=== PATIENT | male | born 1940 | race Hispanic/Latino ===

== ENCOUNTER 2023-09-07 20:54 | Emergency (ER) | payer MEDICARE ==
[~2023-09-07] VITALS: Ht 167.6 cm; Wt 78.9 kg
[2023-09-07 21:49] LABS: BASOPHILS # (AUTO) 0.05 K/uL (0.00-0.20); BASOPHILS % (AUTO) 0.5 % (0.0-5.0); EOSINOPHILS % (AUTO) 6.3 % (0.0-8.0); HEMATOCRIT 37.1 % (42-54); IMMATURE GRANULOCYTE ABSOLUTE 0.03 K/uL (0-1); LYMPHOCYTES # (AUTO) 1.6 K/uL (1.0-4.8); LYMPHOCYTES % (AUTO) 16.5 % (21.0-51.0); MEAN CORPUSCULAR HEMOGLOBIN 30.3 pg (27.0-33.0); MEAN CORPUSCULAR HGB CONC 33.2 g/dL (32.0-36.0); MEAN CORPUSCULAR VOLUME 91.4 fL (79-99); MONOCYTES # (AUTO) 1.5 K/uL (0.1-1.0); MONOCYTES % (AUTO) 15.3 % (3.0-13.0); NEUTROPHILS # (AUTO) 5.8 K/uL (1.8-7.7); NEUTROPHILS % (AUTO) 61.1 % (40.0-77.0); PLATELET COUNT (AUTO) 213 K/uL (130-400); RED BLOOD CELL COUNT(AUTO) 4.06 MIL/uL (4.50-6.20); RED CELL DISTRIBUTION WIDTH 13.3 % (11.0-15.5); WHITE BLOOD COUNT (AUTO) 9.5 K/uL (4.8-10.8)
[2023-09-07 21:58] LABS: CREATININE 1.3 mg/dL (0.5-1.5)
[2023-09-07 22:03] LABS: ALBUMIN 3.2 g/dL (3.5-5.0); BILIRUBIN,TOTAL 0.4 mg/dL (0.2-1.0); TOTAL PROTEIN, SERUM 6.8 g/dL (6.0-8.3)
[2023-09-07 22:40] VITALS: BP 118/62; PULSE 62; RESP 18; O2SAT 99
== END 2023-09-07 22:40 | disposition home or self-care (01) ==
LOC: EDH 20:54
DX: S00.03XA Contusion of scalp, initial encounter (principal); Z79.02 Long term (current) use of antithrombotics/antiplatelets; Z88.0 Allergy status to penicillin; W18.39XA Other fall on same level, initial encounter; Y93.89 Activity, other specified; Y92.89 Other specified places as the place of occurrence of the external cause; Y99.8 Other external cause status
CPT/HCPCS: 36415; 70450; 72125; 80053; 85025; 85730; 93005

== ENCOUNTER 2024-11-24 03:23 | Inpatient (IN) | payer MEDICARE ==
[~2024-11-24] VITALS: Ht 167.6 cm; Wt 76.8 kg
[2024-11-24] VITALS (17 sets, daily range): BP systolic 93–145; BP diastolic 48–79; PULSE 62–124; RESP 18–22; TEMP 97.4–99; O2SAT 90–97
[~2024-11-24 03:23] MED LIST: ASPI-1005 PO; ATOR40TA69 PO; BUPR100T13 PO; CARV6.25 PO; CLON0.5T23 PO; DOXY100C5 PO; FAMO40TA7 PO; LISI5TAB21 PO; MULT-1268 PO; MV-M1TAB20 PO; OLAN2.5T77 PO; OMEP20TA2 PO
--- NOTE | 2024-11-24 04:00 | ERN ---
ED Note History of Present Illness Stated Complaint: MECHANICAL FALL, PAIN TO NOSE Chief Complaint: Mechanical Fall Time Seen by MD: 03:30 Dictation: This is an 84-year-old male who was discharged from hospital yesterday after he was treated for shortness of breath and congestive heart failure and hypoxia. Apparently patient was able to walk around after discharge to the vehicle however he says he felt weak. stated that he got up around midnight to go to the bathroom however he could not gather strength to get out of bed and move his legs he just slumped down and patient called the neighbor who helped her to pick him up. Got up around 3:00 a.m. was holding the wall and trying to go to the bathroom and the heard a big thud and realized patient had fallen in the bathroom. Patient tripped on his own feet and fell forward hitting his face on the bathtub and right shoulder as well. Did not lose consciousness he is not on any blood thinners No headache, facial droop, diplopia or seizure activity Temperature 100.8 pulse 106 respirations 18 blood pressure 120/72 with a pulse oximetry of 94% on room air Chronic medical problems include CAD status post CABG in 2004 and subsequently stent placements, history of congestive heart failure. Previous history of heavy smoking quit 20 years ago Allergies: Coded Allergies: Penicillins (Unverified Allergy, Unknown, 09/07/23) Home Meds Active Scripts Doxycycline Hyclate (Doxycycline Hyclate) 100 Mg Capsule, 100 MG PO BID for 7 Days, #14 CAP Prov:DONNA HOYOS MD 11/23/24 Reported Medications Famotidine (Famotidine) 40 Mg Tablet, 1 TAB PO HS for 30 Days, #30 TAB 0 Refills 11/22/24 Olanzapine (Olanzapine) 2.5 Mg Tablet, 1.5 TAB PO HS, TAB 11/22/24 Atorvastatin Calcium (LIPITOR) 80 Mg Tablet, 1 TAB PO HS for 30 Days, #30 TAB 0 Refills 11/22/24 Carvedilol (Carvedilol) 6.25 Mg Tablet, 6.25 MG PO BID, TAB 11/22/24 Lisinopril (Lisinopril) 5 Mg Tablet, 5 MG PO DAILY, TAB 11/22/24 Omeprazole Magnesium (Prilosec Otc) 20 Mg Tablet.dr, 1 TAB PO DAILY for 30 Days, #30 TAB 0 Refills 11/22/24 Bupropion HCl (Bupropion HCl) 100 Mg Tablet, 150 MG PO DAILY, TAB 11/22/24 Clonazepam (Clonazepam) 0.5 Mg Tab.rapdis, 0.5 TAB PO QODAY for 30 Days, #60 TAB 0 Refills 11/22/24 Aspirin (ASPIRIN 81MG CHEW TAB) 81 Mg Tab.chew, 1 TAB PO DAILY for 30 Days, #30 TAB 0 Refills 11/22/24 Mv-Mn/Iron/FA/Herbal Cmplx#190 (Vitamin D3 Complete Caplet) 18 Mg Iron-800 Mcg- 150 Mg Tablet, 1 EACH PO DAILY, TAB 11/22/24 Multivit-Min/FA/Lycopene/Lut (Senior Tabs) 0.4 Mg-300 Mcg-250 Mcg Tablet, 1 EACH PO DAILY, TAB 11/22/24 Past Medical History Past Medical History: CAD, Other Additional Past Medical Hx: TRIPLE BYPASS (2004) Surgical History: CABG, Other Surgical History Other: CARDIAC STENTS Social History: Smokers (Quit smoking 20 years ago), ETOH (Heavy in the past but quit 20 years ago) RN Note Reviewed/Agreed w/PFSH: Yes Review of System Dictation Constitutional: Negative for fever,chills, and weight loss Eyes: Negative for injury, pain,redness, and discharge ENT: Negative for injury,pain or swelling Cardiovascular: Negative for chest pain, palpitations, and edema Respiratory: Negative for shortness of breath, cough, and wheezing, Abdomen/GI: Negative for abdominal pain, nausea, vomiting, diarrhea, and constip ation Back: Negative for injury and pain : Negative for injury, bleeding and discharge MS/Extremity: Negative for injury and deformity Skin: Negative for rash, and discoloration Neuro: Negative for headache, weakness, numbness, tingling, and seizure Psych: Negative for suicide ideation, homicidal ideation, and hallucinations Initial Vital Sign VS Vital Signs Date Time Temp Pulse Resp B/P (MAP) Pulse Ox O2 Delivery O2 Flow Rate FiO2 11/24/24 03:29 100.8 106 18 120/72 94 Nasal Cannula 2.0 11/24/24 03:57 40 Physical Exam Dictation General: awake, alert, NAD small amount of dried blood around nostrils and lips Head/Face: Normocephalic, atraumatic Eyes: PERRL, EOMI, vision at baseline ENT: oral cavity clear, TMs clear, no signs of infection nose appears bruised with tenderness to palpation but no obvious depression of the bridge of the nose visible deformity. Neck: Trachea midline, supple, no nuchal rigidity Cardiovascular: RRR, normal S1/S2, No MRGs, no JVD Respiratory: CTAB, no respiratory distress, No rales or wheezes Abdomen: Soft, non-tender, non-distended, normal bowel sounds, no guarding or rebound. Skin: Warm, dry, normal turgor, no rash MS/Extremity: Pulses equal, no cyanosis, neurovascular intact, FROM Neuro: COAx4, GCS 15, strength 4/5, CN 2-12 intact, normal cerebellar exam, normal gait, Psych: Normal behavior, mood, and affect normal Extremities-trace edema without any palpable cords, Homans sign is negative Results (Laboratory/Radiology) Laboratory/Radiology Laboratory Tests Test 11/24/24 03:52 White Blood Count 12.5 K/uL (4.8-10.8) H Red Blood Count 4.10 MIL/uL (4.50-6.20) L Hemoglobin 12.2 g/dL (14.0-18.0) L Hematocrit 37.2 % (42-54) L Mean Corpuscular Volume 90.7 fL (79-99) Mean Corpuscular Hemoglobin 29.8 pg (27.0-33.0) Mean Corpuscular Hemoglobin Concent 32.8 g/dL (32.0-36.0) Red Cell Distribution Width 13.7 % (11.0-15.5) Platelet Count 255 K/uL (130-400) Mean Platelet Volume 9.8 fL (7.5-10.5) Immature Granulocyte % (Auto) 0.5 % (0-1) Neutrophils (%) (Auto) 81.1 % (40.0-77.0) H Lymphocytes (%) (Auto) 5.0 % (21.0-51.0) L Monocytes (%) (Auto) 13.3 % (3.0-13.0) H Eosinophils (%) (Auto) 0.0 % (0.0-8.0) Basophils (%) (Auto) 0.1 % (0.0-5.0) Neutrophils # (Auto) 10.2 K/uL (1.8-7.7) H Lymphocytes # (Auto) 0.6 K/uL (1.0-4.8) L Monocytes # (Auto) 1.7 K/uL (0.1-1.0) H Eosinophils # (Auto) 0.00 K/uL (0.00-0.70) Basophils # (Auto) 0.01 K/uL (0.00-0.20) Absolute Immature Granulocyte (auto 0.06 K/uL (0-1) Nucleated Red Blood Cells 0.0 % (0.0-0.19) Sodium Level 132 mmol/L (136-145) L Potassium Level 4.2 mmol/L (3.5-5.1) Chloride Level 98 mmol/L (101-111) L Carbon Dioxide Level 27 mmol/L (21-32) Blood Urea Nitrogen 43 mg/dL (7-18) H Creatinine 1.8 mg/dL (0.5-1.3) H Glomerular Filtration Rate Calc 36 mL/min (>90) Random Glucose 94 mg/dL (70-105) Total Calcium 8.5 mg/dL (8.5-10.1) Labs Reviewed?: Yes EKG Comment: Twelve lead EKG done on 11/24/2024 at 4:58 a.m. showed a heart rate of 97, [place] interval 155, QRS 114, QT/QTC 339/432 Impression normal sinus rhythm with sinus tachycardia nonspecific STT wave changes throughout ST segment is prominent in the anterior leads but I do not appreciate any acute ST elevations suggestive of DC. I have compared the EKG the 1 done on 09/07/2023 at 9:01 p.m. which looks exactly the same. Interpreted by ER MD Dr. Chowdhury Ultrasound Comment: ECHO Conclusion LVEF is 50-55%. Septal bounce is present. The left ventricular diastolic function is normal. Trace aortic regurgitation. DICTATED BY: LISSA VALERA DO DATE: 11/22/24 1001 ED Course ED Course Orders Procedure Category Date Status Time Cbc With Differential LAB 11/24/24 Complete 03:32 Basic Metabolic Panel LAB 11/24/24 Complete 03:32 Ct Maxillofacial W/O CT 11/24/24 Taken Contrast 03:32 Shoulder Comp 2+Vws Rt RAD 11/24/24 Taken 03:45 Chest 1vw RAD 11/24/24 Taken 03:45 12 Lead Ekg Tracing- EKG 11/24/24 Logged Technical 04:01 Urinalysis Profile LAB 11/24/24 Logged 04:01 Blood Cult MAURILIO 11/24/24 Logged 04:37 Lactic Acid LAB 11/24/24 Logged 04:37 Cefepime Hcl 1 Gm PHA 11/24/24 Complete Vial (Maxipime 1 Gm Vi 05:00 Vancomycin 750mg PHA 11/24/24 Complete (Vancomycin 750mg) 05:00 0.9% Nacl 250ml (Ns PHA 11/24/24 Complete 250ml) 05:00 0.9% Nacl 500ml PHA 11/24/24 Complete Iv.Soln (Ns 500ml 05:00 Current Medications Medications (Trade) Dose Ordered Sig/Renata Route PRN Reason Start Time Stop Time Status Last Admin Dose Admin Cefepime HCl (MAXipime 1 GM vial) 1 gm ONCE ONCE IVPB 11/24/24 05:00 11/24/24 05:01 DC 11/24/24 04:53 Sodium Chloride 500 ml @ 0 mls/hr ONCE ONCE IV 11/24/24 05:00 11/24/24 05:01 DC 11/24/24 04:50 Sodium Chloride (NS 250ml) 250 ml ONCE ONCE IVPB 11/24/24 05:00 11/24/24 05:01 DC 11/24/24 04:50 Vancomycin HCl (Vancomycin 750mg) 750 mg ONCE ONCE IVPB 11/24/24 05:00 11/24/24 05:01 DC 11/24/24 04:50 Vital Signs Date Time Temp Pulse Resp B/P (MAP) Pulse Ox O2 Delivery O2 Flow Rate FiO2 11/24/24 03:57 99.0 105 18 156/65 90 Nasal Cannula* 5 40 11/24/24 03:29 100.8 106 18 120/72 94 Nasal Cannula 2.0 We will perform diagnostic labs, advanced imaging and administer medications according to the patient's complaint. Once the results are available, will review and personally interpreted the labs to rule out any acute life- threatening emergency the trach require immediate intervention and treatment. I will then re-evaluate the patient after treatment and diagnostic exams have return to determine whether the patient requires any further testing, can safely be discharged home or need further admission to hospital for additional treatment and evaluation. 4:30 a.m. Labs reviewed CBC shows a hemoglobin of 12.2 white count of 12.5. BNP 7 is significant for a sodium of 132 chloride 98 BUN and creatinine are 43 and 1.8 which are worse than the baseline of 20/1.5. Urinalysis is still pending at this time. Chest x-ray shows left basilar patchy infiltrate. Radiology report is pending at this time. I recommended admission to the hospital for re-evaluation and physical therapy as well as consideration for a subacute rehab also. And patient and spouse are agreeable Shoulder x-ray and maxillofacial CT scan results are pending 4:45 a.m.-stat read reading of the CT maxillofacial showed possibly an acute mildly depressed fracture of the frontal nasal bones but otherwise everything else is normal. 5:12 a.m. patient accepted by Hua Tripp, mid-level provider for hospitalist group for admission and further management. Medical Decision Making MDM MDM: Differential diagnosis: Adult failure to thrive, sarcopenia, deconditioning, electrolyte abnormalities, critical illness myopathy Rationale: Tests considered and ordered secondary to shared decision making incl ude: labs, ECG and radiology Previous outside records reviewed: Old ER visits. Risk of complication and/or morbidity or mortality of patient management: None Medications-Per medication reconciliation Need for hospitalization: Patient does meet criteria for hospitalization. Need for emergency major/minor surgery: No There are no social concerns with this patient. Prescription drug management Prescriptions will include symptomatic care Patient's prior external medical records from other ER visits were reviewed by me as indicated. Prior testing and results from previous visits were reviewed. Prior tests were taken into account with medical decision making and resource utilization, independent historian/historians were used to obtain complete medical history. I independently interpreted the test that were performed, results were reviewed by me and considered findings on radiology if ordered. Medical management and examination interpretation discussions were had by me with other qualified healthcare professionals as indicated for the patient's care. Problem List Problem List: (1) Recurrent falls (2) Fall from standing (3) Facial injury (4) Adult failure to thrive (5) Healthcare-associated pneumonia (6) Sepsis DX & DISP Disposition: Inpatient Decision to Admit Time: 03:51 Departure Impression: Primary Impression: Fall from standing Additional Impressions: Facial injury, Adult failure to thrive, Deconditioned low back, Recurrent falls, Sepsis, Healthcare-associated pneumonia Condition: Stable Additional Instructions: Patient was informed of all the diagnostic labs and procedures conducted in the emergency room today and demonstrated understanding of the results. I personally reviewed and interpreted all the diagnostic exams performed in the ER today. The patient will be admitted to the hospital for further treatment and evaluation. Disposition-admit to facility Condition-stable/guarded Course-uncertain at this time Pain status-decreased Assessment-exam unchanged Admission Certification- I certify that the patients status is appropriate and is based on my best clinical judgment and the patient's condition as documented in the medical records Referrals: SELF,REFERRAL (PCP) DIEGO CHOWDHURY MD Nov 24, 2024 04:00
[2024-11-24 04:05] LABS: BASOPHILS # (AUTO) 0.01 K/uL (0.00-0.20); BASOPHILS % (AUTO) 0.1 % (0.0-5.0); HEMATOCRIT 37.2 % (42-54); IMMATURE GRANULOCYTE ABSOLUTE 0.06 K/uL (0-1); LYMPHOCYTES # (AUTO) 0.6 K/uL (1.0-4.8); MEAN CORPUSCULAR HEMOGLOBIN 29.8 pg (27.0-33.0); MEAN CORPUSCULAR HGB CONC 32.8 g/dL (32.0-36.0); MEAN CORPUSCULAR VOLUME 90.7 fL (79-99); MONOCYTES # (AUTO) 1.7 K/uL (0.1-1.0); MONOCYTES % (AUTO) 13.3 % (3.0-13.0); NEUTROPHILS # (AUTO) 10.2 K/uL (1.8-7.7); NEUTROPHILS % (AUTO) 81.1 % (40.0-77.0); PLATELET COUNT (AUTO) 255 K/uL (130-400); RED CELL DISTRIBUTION WIDTH 13.7 % (11.0-15.5); WHITE BLOOD COUNT (AUTO) 12.5 K/uL (4.8-10.8)
[2024-11-24 04:13] LABS: CREATININE 1.8 mg/dL (0.5-1.3); POTASSIUM 4.2 mmol/L (3.5-5.1)
[2024-11-24] MEDS: 0.9% NACL 500ML IV.SOLN 500 ML IV ONE (04:50)
[2024-11-24] MEDS: VANCOMYCIN 750MG VIAL IVPB ONE (04:50)
[2024-11-24] MEDS: 0.9% NACL 250ML IVPB ONE (04:50)
[2024-11-24] MEDS: ceFEPime HCL 1 GM VIAL IVPB ONE (04:53)
[2024-11-24] MEDS ORDERED: ondanSETRON 4MG INJ IV PRN (05:30)
[2024-11-24] MEDS ORDERED: hydrALAZine 20MG/ML VIAL IV PRN (05:30)
--- NOTE | 2024-11-24 05:40 | HP ---
History of Present Illness Reason for Visit: Weakness History of Present Illness Mr. Daniel is a 84-year-old male that was seen and examined today on 11/24/2024. Patient is a good historian of personal health Patient states that he came to emergency department with a chief complaint of weakness. Onset was 11/23/2024. Location is to bilateral lower extremities. Duration is constant. Character is described as, my legs are too weak to walk very far. There was no alleviating factors. Symptoms are aggravated with physical activity. Patient reports two associated falls tonight once at midnight and 1:23 a.m.. Today in the emergency department WBCs 12.5, left shift neutrophils 81.1%, creatinine 1.8, chest x-ray is pending radiology interpretation however my initial impression is that there was a left lower lobe infiltrate. Additionally patient arrived with a temperature of 100.8, heart rate 106 and suspected source of infection being lungs patient met clinical sepsis criteria Past Medical History ADDITIONAL PAST MEDICAL HISTORY: [Denies, normal 2D echo on 11/22/24] SOCIAL HISTORY: [Patient has smoked one pack of cigarettes daily for 60 years. Patient quit smoking in 2004. Patient denies alcohol use. Patient denies drug use. Patient lives with his Juani Daniel. 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 Patient has good access to health care through his insurance. Patient is typically independent of all his ADLs.] SURGICAL HISTORY: [CABG, heart stents] Review of Systems General: No Fever, No Chills, No Night Sweats, No Fatigue, No Malaise, No Appetite, No Other HEENT: No Head Aches, No Visual Changes, No Eye Pain, No Ear Pain, No Dysphasia, No Sinus Congestion, No Post Nasal Drip, No Sore Throat, No Other Pulmonary: No Dyspnea; Cough; No Pleuritic Chest Pain, No Other Cardiovascular: No: Chest Pain, Palpitations, Orthopnea, Paroxysmal Noc. Dyspnea, Edema, Lt Headedness, Other Gastrointestinal: No: Nausea, Vomiting, Abdominal Pain, Diarrhea, Constipation, Melena, Hematochezia, Other Genitourinary: No Dysuria, No Frequency, No Incontinence, No Hematuria, No Retention, No Other Musculoskeletal: No: other, neck pain, shoulder pain, arm pain, back pain, hand pain, leg pain, foot pain Skin: No Urticaria, No Rash, No Other Neurological: Weakness; No: Numbness, Incoordination, Change in speech, Confusion, Seizures, Other Allergies: Coded Allergies: Penicillins (Unverified Allergy, Unknown, 09/07/23) Scheduled Aspirin (Aspirin 81MG Chew Tab), 1 TAB PO DAILY, (Reported) Atorvastatin Calcium (Lipitor), 1 TAB PO HS, (Reported) Bupropion HCl (Bupropion HCl), 150 MG PO DAILY, (Reported) Carvedilol (Carvedilol), 6.25 MG PO BID, (Reported) Clonazepam (Clonazepam), 0.5 TAB PO QODAY, (Reported) Doxycycline Hyclate (Doxycycline Hyclate), 100 MG PO BID Famotidine (Famotidine), 1 TAB PO HS, (Reported) Lisinopril (Lisinopril), 5 MG PO DAILY, (Reported) Multivit-Min/FA/Lycopene/Lut (Senior Tabs), 1 EACH PO DAILY, (Reported) Mv-Mn/Iron/FA/Herbal Cmplx#190 (Vitamin D3 Complete Caplet), 1 EACH PO DAILY, (Reported) Olanzapine (Olanzapine), 1.5 TAB PO HS, (Reported) Omeprazole Magnesium (Prilosec Otc), 1 TAB PO DAILY, (Reported) Exam Vital Signs Vital Signs Date Time Temp Pulse Resp B/P (MAP) Pulse Ox O2 Delivery O2 Flow Rate FiO2 11/24/24 03:57 99.0 105 18 156/65 90 Nasal Cannula* 5 40 General Appearance: Alert, Oriented X3, Cooperative, mild distress HEENT: Atraumatic, EOMI, Mucous membr. moist/pink Respiratory: Other (Left lower lobe bronchi) Cardiovascular: Regular rate, Regular rhythm, Normal S1, Normal S2, Other (Tachycardia) Abdominal: Normal bowel sounds, Soft, No tenderness Extremities: No edema Skin: No significant lesion Neuro: Normal speech, Strength at 5/5 X4 ext, Sensation intact, Cranial nerves 3-12 NL Psych/Mental Status: Mental status NL, Mood NL, Thoughts/Content NL Assessment/Plan ASSESSMENT: [ Sepsis, POA Pneumonia, POA Leukocytosis, POA BRENDA, POA, today creatinine 1.8, on 11/18/2024 creatinine 1.3 Weakness and deconditioning , POA PLAN: [ Admit patient to medical floor as inpatient status. Fluid resuscitation with lactated Ringer's 30 mL/kg Empiric antibiotic therapy with Levaquin Check blood culture, follow up with the results Check lactic acid, follow up with the results Check procalcitonin, follow up with the results Check respiratory culture, follow up with the results Follow up with radiology report on chest x-ray, maxillofacial CT, shoulder x-ray Lactated Ringer's at 100 mL/HR Calculate FENA Check urine sodium, creatinine, osmolality Avoid nephrotoxic agents when possible Renally dose all medications when possible Consider consulting Nephrology service if any worsening renal function or evidence of ATN. Monitor patient's labs. Weight patient daily. Monitor intake and output. Physical therapy for evaluation and treatment Case management consult for SNF placement GI prophylaxis, Protonix DVT prophylaxis, heparin ADVANCED CARE PLANNING 1. Which of the following were discussed? Hospice Care - Yes Therapeutic options - Yes Advance Directives - Yes-patient states he does not have any advance directives in place at this time, however his can make decisions for him if he becomes unable. Other discussions - patient wishes to remain a full code at this time 2. Discussed with who? Patient 3. Voluntary nature of this service was explained to the patient? Yes 4. Amount of time spent - ___ 17 minutes ____ 5. Reviewed by Physician? (if this service was performed by NPP) Yes This document was generated in part using voice recognition software, occasional wrong word or sound alike substitutions may have occurred due to the inherent limitations of voice recognition software. Read the chart carefully and recognize using context, where the substitutions have occurred. Although every effort was made to edit the content, landfill grader and typing errors may occur ATTESTATION BY PHYSICIAN I have seen and examined the patient. I reviewed the documentation, medical decision making, and treatment plan as noted by the mid-level provider above. I agree with the findings and plan of care.] GIO MELTON IT INFRASTRUCTURE PROJECT MANAGER Nov 24, 2024 05:40
[2024-11-24] MEDS: LACTATED RINGERS 1000ML 1,000 ML IV SCH (05:42)
[2024-11-24] MEDS: LACTATED RINGERS 1000ML 2,328 ML IV ONE (05:42)
[2024-11-24] MEDS: levoFLOXacin 750 MG/D5W 150ML BAG IV SCH (05:56)
[2024-11-24 06:42] LABS: APPEARANCE,URINE CLOUDY (CLEAR); BILIRUBIN,URINE NEGATIVE (NEGATIVE); COLOR,URINE YELLOW (YELLOW); GLUCOSE, URINE (UA) NEGATIVE (NEGATIVE); KETONES,URINE NEGATIVE (NEGATIVE); LEUKOCYTE ESTERASE ,URINE NEGATIVE Leu/uL (NEGATIVE); NITRATE,URINE NEGATIVE (NEGATIVE); OCCULT BLOOD,URINE LARGE (NEGATIVE); PH,URINE 5.5 (5.0-8.0); PROTEIN,URINE 50 mg/dL (NEGATIVE); UROBILINOGEN,URINE 0.2 mg/dL (0.2-1.0)
[2024-11-24] MEDS: SODIUM CHLORIDE 3% FOR INHALATION 4 ML/AMP VIAL.NEB IH ONE (07:42)
[2024-11-24] MEDS: IpraTROPium/alBUTERol SULFATE 3 ML SOLUTION IH SCH ×2 (07:42→18:00)
--- NOTE | 2024-11-24 07:43 | HMCIMG ---
CT MAXILLOFACIAL W/O CONTRAST HISTORY: No additional history given. COMPARISON: None TECHNIQUE: Multiple sequential high-resolution axial images of the paranasal sinuses were obtained. Postprocessing sagittal and coronal reconstruction images were also obtained. Patient was not given contrast through intravenous route. FINDINGS: Nasal septum is grossly midline. There is no evidence of mucoperiosteal thickening involving the paranasal sinuses. The infundibula are patent bilaterally. Mildly depressed fracture of the frontal nasal bones with left more than right. There is soft tissue swelling with soft tissue emphysema. There is no evidence of air-fluid level in the paranasal sinuses. Parapharyngeal fat planes are preserved bilaterally. IMPRESSION: 1. Mildly depressed fracture of the frontal nasal bones with left more than right. There is soft tissue swelling with soft tissue emphysema. CT was performed with one or more following dose reduction techniques: automated exposure control, adjustment of the mA and kv according to patient's size, or use of a iterative reconstruction technique.
[2024-11-24] MEDS: morPHINE 2 MG SYG IVP PRN (07:56)
--- NOTE | 2024-11-24 08:27 | NUR ---
9903 HAND OFF REPORT TO ANN HARO. PT STABLE NO DISTRESS VITALS WNL NO C/O PAIN NOW. AT BEDSIDE WITH PERSONAL BELONGINGS.
[2024-11-24 08:37] LABS: ADD UA MICROSCOPIC YES
--- NOTE | 2024-11-24 08:40 | HMCIMG ---
CHEST 1VW HISTORY: Status post fall COMPARISON: 11/21/2024 FINDINGS: A frontal projection of the chest was obtained. Mild bilateral pulmonary infiltrates are seen may be related to mild pulmonary vascular congestion with possible superimposed pneumonitis. The heart is borderline enlarged. All the lines and tubes are again seen in place. Degenerative changes are seen. IMPRESSION: 1. Mild bilateral pulmonary infiltrates are seen may be related to mild pulmonary vascular congestion with possible superimposed pneumonitis.
[2024-11-24 08:43] LABS: BACTERIA,URINE FEW /HPF (None Seen); HYALINE CASTS, URINE >100 /LPF (0-1 /LPF); MUCUS,URINE RARE LPF (None Seen); SQUAMOUS EPITHELIAL CELL,UR RARE /HPF (0-2)
--- NOTE | 2024-11-24 08:49 | HMCIMG ---
SHOULDER COMP 2+VWS RT HISTORY: Status post fall COMPARISON: None TECHNIQUE: 2 images of right shoulder were obtained. FINDINGS: There is no acute displaced fracture or dislocation. Degenerative changes are seen. IMPRESSION: 1. Findings as described above.
[2024-11-24] MEDS: MV MN PO SCH (08:56)
[2024-11-24] MEDS: [UNRECOGNIZED DRUG - OTHER] PO SCH (08:56)
[2024-11-24] MEDS: MULTIVIT MIN PO SCH (08:56)
[2024-11-24] MEDS: IRON PO SCH (08:56)
[2024-11-24] MEDS: [UNRECOGNIZED DRUG - OTHER] PO SCH (08:56)
[2024-11-24] MEDS: LYCOPENE PO SCH (08:56)
[2024-11-24] MEDS: HERBAL CMPLX PO SCH (08:56)
[2024-11-24] MEDS: LUT PO SCH (08:56)
[2024-11-24] MEDS: HEParin 5,000 UNIT VIAL SQ SCH (09:00)
[2024-11-24] MEDS: carVEDIlol 6.25 MG TABLET PO SCH (09:00)
[2024-11-24] MEDS: guaiFENesin SUGAR-FREE 100 MG/5 ML UDCUP PO PRN (09:28)
[2024-11-24] MEDS: buPROPion HCL 150 MG TABLET.SA PO SCH (09:42)
[2024-11-24] MEDS: ASPIRIN 81MG CHEW TAB PO SCH (09:42)
[2024-11-24] MEDS: PANTOPrazole 40 MG TAB DR PO SCH (09:44)
--- NOTE | 2024-11-24 11:00 | NUR ---
Order received and EMR reviewed. Patient noted low BP (93/41, 98/48) in supine. Will follow patient and as vitals improve will perform eval. PT team to follow.
[2024-11-24] MEDS: HYDROcodone/APAP 5/325 1 TAB TABLET PO ONE (11:15)
[2024-11-24] MEDS ORDERED: ETOMIDATE 20MG VIAL IVP ONE (11:35)
[2024-11-24] MEDS ORDERED: CACL 1GM SYG IVP ONE (13:59)
--- NOTE | 2024-11-24 15:02 | NUR ---
[facility] CM SPOKE TO PT'S SPOUSE ANTHONY OROZCO , INITIAL ASSESSMENT DONE. PATIENT WAS INDEPENDENT PRIOR TO RECENT FALLS, LIVES AT HOME WITH , LIGIA DODD FROM [place]. DENIES ANY EQUIPMENT/SERVICES. FEELS SAFE TO GO BACK HOME, STILL DRIVE BEFORE BUT NOT RECENTLY, ABLE TO ASSIST WITH TRANSPORTATION AND NEEDS NECESSARY. DISCUSSED MD RECOMMENDATIONS FOR SHORT TERM PLACEMENT, PT WILL NEED REHAB AND IV ABX X 2WKS, GIVEN IN NETWORK SNF FACILITIES. GAVE TELEPHONE CONSENT [facility] FOR [facility] WITNESSED BY KARTHIKEYAN PIERCE. [facility] SNF ONCE APPROVED. CM TO CONTINUE TO FOLLOW UP. Addendum: 11/24/24 at 1505 by ANA BELCHER LVN Amended: Links added.
--- NOTE | 2024-11-24 15:44 | EKG ---
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 : 1940 Requested By: DIEGO BOLDEN Order Number: [id number] Reading MD: Faby Bauman Measurements Intervals [place] Rate: 97 P: 40 WY: 155 QRS: 46 QRSD: 114 T: 164 QT: 339 QTc: 432 Interpretive Statements Sinus rhythm Nonspecific repol abnormality, diffuse leads Borderline ST elevation, anterior leads Compared to ECG 09/07/2023 21:01:44 Ectopic atrial rhythm no longer present Intraventricular conduction delay no longer present Possible ischemia no longer present Myocardial infarct finding no longer present ST (T wave) deviation still present Electronically Signed On 11-25-2024 07:53:43 CDT by Faby Bauman Please click the below link to view image of tracing.
--- NOTE | 2024-11-24 16:26 | NUR ---
REPORT CALLED TO AQUILES SAEED RN FOR TRANSPORT TO [facility]
[2024-11-24] MEDS: atorVAStatin 40 MG TABLET PO SCH (21:00)
[2024-11-24] MEDS: oLANZapine 5 MG TAB PO SCH (21:44)
[2024-11-24] MEDS: monteLUKAST sodIUM 10 MG TAB PO SCH (22:07)
--- NOTE | 2024-11-24 22:31 | NUR ---
Patient desaturating 83% o2 with 4 liters. States mild shortness of breath. Notified RT and placed an Oxymizer. Patient now at 91% o2. Aspiration precautions in place. Call light within reach.
--- NOTE | 2024-11-24 23:20 | NUR ---
Report given to TAHIR Colón.
[2024-11-24] MEDS: acetaMINOPHEN 325 MG TAB PO PRN (23:45)
[2024-11-25] VITALS (10 sets, daily range): BP systolic 106–124; BP diastolic 62–71; PULSE 78–105; RESP 18–22; TEMP 97.3–98.8; O2SAT 94–95
[2024-11-25 03:35] LABS: BASOPHILS # (AUTO) 0.01 K/uL (0.00-0.20); BASOPHILS % (AUTO) 0.1 % (0.0-5.0); HEMATOCRIT 34.6 % (42-54); IMMATURE GRANULOCYTE ABSOLUTE 0.06 K/uL (0-1); LYMPHOCYTES # (AUTO) 0.4 K/uL (1.0-4.8); LYMPHOCYTES % (AUTO) 4.5 % (21.0-51.0); MEAN CORPUSCULAR HEMOGLOBIN 29.7 pg (27.0-33.0); MEAN CORPUSCULAR HGB CONC 32.7 g/dL (32.0-36.0); MEAN CORPUSCULAR VOLUME 91.1 fL (79-99); MONOCYTES # (AUTO) 0.7 K/uL (0.1-1.0); MONOCYTES % (AUTO) 7.4 % (3.0-13.0); NEUTROPHILS # (AUTO) 7.9 K/uL (1.8-7.7); NEUTROPHILS % (AUTO) 87.3 % (40.0-77.0); PLATELET COUNT (AUTO) 213 K/uL (130-400); RED CELL DISTRIBUTION WIDTH 13.7 % (11.0-15.5); WHITE BLOOD COUNT (AUTO) 9.1 K/uL (4.8-10.8)
[2024-11-25 03:51] LABS: CREATININE 1.3 mg/dL (0.5-1.3); MAGNESIUM 1.8 mg/dL (1.80-2.40); PHOSPHORUS 3.7 mg/dL (2.5-4.9); POTASSIUM 3.9 mmol/L (3.5-5.1)
--- NOTE | 2024-11-25 09:00 | NUR ---
BEDSIDE SWALLOW EVAL COMPLETED. s/s of aspiration observed WITH THIN AND NECTAR THICK LIQUIDS SECONDARY TO SWALLOW DELAY. Recommend REGULAR solids, HONEY THICK liquids, and pills WHOLE 1 BY 1 OR CRUSHED WITH PUREE as tolerated. Compensatory strategies: 1. sit upright during and 30 minutes after meals 2. slow oral intake 3. 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 RECOMMEND MBSS TO FULLY ASSESS SWALLOW FUNCTION AND DETERMINE LEAST RESTRICTIVE DIET FOR Pt. ST POC PENDING MBSS RESULTS. Addendum: 11/25/24 at 1545 by [address] MÉN[address] Amended: Links added.
[2024-11-25] MEDS: furoSEMIDE 40MG VIAL IV ONE (10:15)
[2024-11-25 10:16] LABS: ABG BASE EXCESS -1.1 mmol/L (-2.0-3.0); ABG OXYGEN SATURATION 94.8 % (94.0-98.0); ABG PCO2 32 mmHg (35-48); ABG PH 7.449 (7.350-7.450); DEVICE COMMENT RR; PO2, ARTERIAL BG 69.5 mmHg (83.0-108.0); VENT MODE, BG 9LNC OXYMIZER (ROOM AIR)
[2024-11-25] MEDS ORDERED: PoTASSium chl 10% ELIXIR 20MEQ 20 MEQ/15 ML UDCUP PO PRN (10:30)
[2024-11-25] MEDS ORDERED: PoTASSium chloRIDE 20MEQ ER 20 MEQ ERTAB PO PRN (10:30)
--- NOTE | 2024-11-25 12:00 | CONS ---
Cardiac Consult Note CONSULT NOTE DATE OF SERVICE: Nov 24, 2024 at 03:23 REFERRING PROVIDER: HARDEEP VILLEGAS MD REASON FOR CONSULT: Acute on chronic congestive heart failure HPI: 84-year-old male who was just discharged from the hospital who states he got up to go to the restroom in the middle of the night and subsequently got lightheaded and fell suffering trauma to his face when he hit the toilet and was brought in for further evaluation and care where he was noted to have left lower lobe infiltrate consistent with a pneumonia a left-sided shift and low-grade temperature. We have been asked to see patient secondary to elevated N terminal proBNP and underlying heart issues. Patient does have a history of remote CABG in 2004 in [place] as well as cerebral cardiac stent placed in he believes [place] several years ago. A 2D echocardiogram performed on November 21, 2024 revealed an ejection fraction of 50-55% with no significant valvulopathy noted. Upon admission here patient was started on lactated Ringer's and IV hydration which has since been stopped. I have written for patient to receive IV Lasix scheduled in addition to oral potassium. We have reinstituted the patient's low-dose MARÍA inhibitor and we should continue his carvedilol. ROS: No fever, headache, chest pain, abdominal pain, nausea, vomiting, or diarrhea. PMHX: Coronary artery disease status post CABG 2004 [place] Coronary artery status post subsequent stent placement after CABG was performed possibly less than 5 years ago in [place] Octogenarian state Preserved left ventricular function Hypertension Dyslipidemia PSHX: See above FH: Noncontributory SOCIAL: Two packs per day for 60 years quit in 2004 PHYSICAL EXAMINATION: GENERAL: No acute distress. HEENT: Normocephalic, atraumatic. CARDIAC: Positive S1 and S2. No murmurs. LUNGS: Clear to auscultation bilaterally. ABDOMEN: Bowel sounds present, soft, nontender. EXTREMITIES: No edema bilaterally. Pneumatic compression devices noted bilaterally NEUROLOGIC: Cranial nerves 2-12 grossly intact. PSYCHIATRIC: Calm. ASSESSMENT: Acute on chronic diastolic congestive heart failure present on admission level of severity 3 Left lower lobe infiltrate consistent with possible pneumonia Octogenarian state Coronary artery disease status post CABG remotely in 2004 with subsequent stent placement done several years ago in [place] PLAN: At this time we will scheduled for patient to proceed with scheduled IV diuresis with Lasix at 40 mg q.12 hours. We will write for supplemental potassium. We will reinstitute patient's home cardiac meds. Underlying treatment for pneumonia we will be done per primary team. They think with the patient's history of recurrent falls I am not sure if a discharge home after this admission would be appropriate without consideration for inpatient r ehabilitation of some sort. I also think there may be a component of autonomic dystonia in orthostatic hypotension considering the medications that patient has on his age as well as his symptom history related to orthostasis. Patient would likely benefit from compression stocking use and when becomes more stable I think orthostatic blood pressures lying sitting and standing following appropriate protocol would be appropriate. Patient is scheduled see Dr. Abdirahman arita as an outpatient and is scheduled for follow up on December 17 which we will keep. For now [facility] we will continue to follow. Vital Signs 11/24/24 11/24/24 11/24/24 11/24/24 12:00 14:00 16:25 17:49 Temp 98.1 97.3 Pulse 74 72 82 Resp 22 20 18 B/P (MAP) 93/51 98/48 106/55 Pulse Ox 93 96 95 97 O2 Delivery Nasal Cannula Nasal Cannula Nasal Cannula Nasal Cannula* O2 Flow Rate 3.0 4.0 3.0 4 FiO2 28 36 11/24/24 11/24/24 11/24/24 11/24/24 18:14 18:17 19:00 20:00 Temp 97.5 Pulse 97 97 62 Resp 19 19 20 B/P (MAP) 140/79 Pulse Ox 91 90 O2 Delivery N/Cannula Low lpm Nasal Cannula Nasal Cannula* O2 Flow Rate 4.0 3.0 4 FiO2 36 28 36 11/24/24 11/24/24 11/24/24 11/24/24 21:45 22:18 22:43 23:00 Pulse 124 117 Resp 22 22 B/P (MAP) 140/69 Pulse Ox 94 O2 Delivery N/Cannula Oximizer Hi LPM N/C Oxymizer Hi LPM* O2 Flow Rate 9.0 9 FiO2 90 11/24/24 11/25/24 11/25/24 11/25/24 23:49 03:49 07:28 07:29 Temp 99.0 97.3 Pulse 118 78 94 94 Resp 20 18 22 22 B/P (MAP) 145/73 106/62 Pulse Ox 96 90 O2 Delivery N/C High Flow System N/C High Flow System N/Cannula Oximizer Hi LPM O2 Flow Rate 10.0 10.0 9.0 11/25/24 11/25/24 08:00 09:05 Temp 98.1 Pulse 94 Resp 20 B/P (MAP) 122/66 122/94 Pulse Ox 94 O2 Delivery Nasal Cannula O2 Flow Rate 9.0 Laboratory Tests Test 11/25/24 03:17 11/25/24 09:41 11/25/24 10:14 White Blood Count 9.1 K/uL (4.8-10.8) Red Blood Count 3.80 MIL/uL (4.50-6.20) Hemoglobin 11.3 g/dL (14.0-18.0) Hematocrit 34.6 % (42-54) Mean Corpuscular Volume 91.1 fL (79-99) Mean Corpuscular Hemoglobin 29.7 pg (27.0-33.0) Mean Corpuscular Hemoglobin Concent 32.7 g/dL (32.0-36.0) Red Cell Distribution Width 13.7 % (11.0-15.5) Platelet Count 213 K/uL (130-400) Mean Platelet Volume 10.0 fL (7.5-10.5) Immature Granulocyte % (Auto) 0.7 % (0-1) Neutrophils (%) (Auto) 87.3 % (40.0-77.0) Lymphocytes (%) (Auto) 4.5 % (21.0-51.0) Monocytes (%) (Auto) 7.4 % (3.0-13.0) Eosinophils (%) (Auto) 0.0 % (0.0-8.0) Basophils (%) (Auto) 0.1 % (0.0-5.0) Neutrophils # (Auto) 7.9 K/uL (1.8-7.7) Lymphocytes # (Auto) 0.4 K/uL (1.0-4.8) Monocytes # (Auto) 0.7 K/uL (0.1-1.0) Eosinophils # (Auto) 0.00 K/uL (0.00-0.70) Basophils # (Auto) 0.01 K/uL (0.00-0.20) Absolute Immature Granulocyte (auto 0.06 K/uL (0-1) Nucleated Red Blood Cells 0.0 % (0.0-0.19) Sodium Level 132 mmol/L (136-145) Potassium Level 3.9 mmol/L (3.5-5.1) Chloride Level 102 mmol/L (101-111) Carbon Dioxide Level 26 mmol/L (21-32) Blood Urea Nitrogen 34 mg/dL (7-18) Creatinine 1.3 mg/dL (0.5-1.3) Glomerular Filtration Rate Calc 54 mL/min (>90) Random Glucose 95 mg/dL (70-105) Total Calcium 8.0 mg/dL (8.5-10.1) Phosphorus Level 3.7 mg/dL (2.5-4.9) Magnesium Level 1.80 mg/dL (1.80-2.40) B-Type Natriuretic Peptide 1250 pg/mL (0-100) Blood Gas Specimen Type Arterial Arterial Blood pH 7.449 (7.350-7.450) Arterial Blood Partial Pressure CO2 32 mmHg (35-48) Arterial Blood Partial Pressure O2 69.5 mmHg (83.0-108.0) Arterial Blood HCO3 22.0 mmol/L (21.0-28.0) Arterial Blood Oxygen Saturation 94.8 % (94.0-98.0) Arterial Blood Base Excess -1.1 mmol/L (-2.0-3.0) Blood Gas Temperature 37.0 CELSIUS (35.5-37.0) Blood Gas Flow-by 9.00 L/min (0.00-15.00) Blood Gas Vent Mode 9LNC OXYMIZER (ROOM AIR) FiO2 56.0 % Blood Gas Specimen Comment RR Current Medications Medications Dose Ordered Sig/Renata Route PRN Reason Start Time Stop Time Status Last Admin Cefepime HCl 1 gm ONCE ONCE IVPB 11/24/24 05:00 11/24/24 05:01 DC 11/24/24 04:53 Vancomycin HCl 750 mg ONCE ONCE IVPB 11/24/24 05:00 11/24/24 05:01 DC 11/24/24 04:50 Sodium Chloride 250 ml ONCE ONCE IVPB 11/24/24 05:00 11/24/24 05:01 DC 11/24/24 04:50 Sodium Chloride 500 ml @ 0 mls/hr ONCE ONCE IV 11/24/24 05:00 11/24/24 05:01 DC 11/24/24 04:50 Albuterol 1 UDVIAL [id number] IH 11/24/24 06:00 12/24/24 05:59 11/25/24 07:26 Heparin Sodium (Porcine) 5,000 unit BID SQ 11/24/24 09:00 12/24/24 08:59 11/25/24 09:13 Lactated Ringer's 1,000 ml @ 100 mls/hr Q10H IV 11/24/24 05:30 11/25/24 09:35 DC 11/25/24 03:57 Pantoprazole Sodium 40 mg DAILY PO 11/24/24 09:00 12/24/24 08:59 11/25/24 09:05 Levofloxacin/ Dextrose 750 mg Q48H IV 11/24/24 05:30 12/04/24 05:29 11/24/24 05:56 Lactated Ringer's 2,328 ml @ 776 mls/hr ONCE ONCE IV 11/24/24 05:30 11/24/24 08:29 DC 11/24/24 05:42 Sodium Chloride 4 ml STK-MED ONCE IH 11/24/24 07:35 11/24/24 07:39 DC 11/24/24 07:42 Aspirin 81 mg DAILY PO 11/24/24 09:00 12/24/24 08:59 11/25/24 09:06 Atorvastatin Calcium 40 mg HS PO 11/24/24 21:00 12/24/24 20:59 Carvedilol 6.25 mg BID PO 11/24/24 09:00 12/24/24 08:59 11/25/24 09:05 Bupropion HCl 150 mg DAILY PO 11/24/24 09:00 12/24/24 08:59 11/25/24 09:06 Home Med 1 each DAILY PO 11/24/24 09:00 12/24/24 08:59 Home Med Mv-Mn/Iron/FA/ Herbal Cmplx#190 (Vitamin... DAILY PO 11/24/24 09:00 12/24/24 08:59 Olanzapine 2.5 mg HS PO 11/24/24 21:00 12/24/24 20:59 11/24/24 21:44 Acetaminophen/ Hydrocodone Bitart 1 tab ONCE ONCE PO 11/24/24 11:00 11/24/24 11:01 DC 11/24/24 11:15 Albuterol 1 UDVIAL [id number] IH 11/24/24 18:00 12/24/24 17:59 Montelukast Sodium 10 mg HS PO 11/24/24 21:00 12/24/24 20:59 11/24/24 22:07 Furosemide 40 mg ONCE ONCE IV 11/25/24 09:30 11/25/24 09:40 DC 11/25/24 10:15 Lisinopril 5 mg DAILY PO 11/26/24 09:00 12/26/24 08:59 Furosemide 40 mg BID IV 11/25/24 21:00 12/25/24 20:59 Potassium Chloride 20 meq BID ONCE PO 11/25/24 21:00 11/25/24 21:01 Reported Medications Famotidine (Famotidine) 40 Mg Tablet, 1 TAB PO HS for 30 Days, #30 TAB 0 Refills 11/22/24 Olanzapine (Olanzapine) 2.5 Mg Tablet, 1.5 TAB PO HS, TAB 11/22/24 Atorvastatin Calcium (LIPITOR) 80 Mg Tablet, 1 TAB PO HS for 30 Days, #30 TAB 0 Refills 11/22/24 Carvedilol (Carvedilol) 6.25 Mg Tablet, 6.25 MG PO BID, TAB 11/22/24 Lisinopril (Lisinopril) 5 Mg Tablet, 5 MG PO DAILY, TAB 11/22/24 Bupropion HCl (Bupropion HCl) 100 Mg Tablet, 150 MG PO DAILY, TAB 11/22/24 Clonazepam (Clonazepam) 0.5 Mg Tab.rapdis, 0.5 TAB PO QODAY for 30 Days, #60 TAB 0 Refills 11/22/24 Aspirin (ASPIRIN 81MG CHEW TAB) 81 Mg Tab.chew, 1 TAB PO DAILY for 30 Days, #30 TAB 0 Refills 11/22/24 Mv-Mn/Iron/FA/Herbal Cmplx#190 (Vitamin D3 Complete Caplet) 18 Mg Iron-800 Mcg- 150 Mg Tablet, 1 EACH PO DAILY, TAB 11/22/24 Multivit-Min/FA/Lycopene/Lut (Senior Tabs) 0.4 Mg-300 Mcg-250 Mcg Tablet, 1 EACH PO DAILY, TAB 11/22/24 Discontinued Reported Medications Omeprazole Magnesium (Prilosec Otc) 20 Mg Tablet.dr, 1 TAB PO DAILY for 30 Days, #30 TAB 0 Refills 11/22/24 Discontinued Scripts Doxycycline Hyclate (Doxycycline Hyclate) 100 Mg Capsule, 100 MG PO BID for 7 Days, #14 CAP Prov:DONNA HOYOS MD 11/23/24 HARDEEP VILLEGAS MD Nov 25, 2024 12:00
--- NOTE | 2024-11-25 12:30 | NUR ---
Prior to admission, patient was indep no AD no oxygen. Addendum: 11/25/24 at 1424 by MISBAH HERNANDEZ PT Amended: Links added.
[2024-11-25] MEDS: MAGNESIUM 2GM PREMIX 50ML 50 ML IV PRN (13:19)
--- NOTE | 2024-11-25 15:27 | PN ---
[facility] PROGRESS NOTE Date of Service: Nov 25, 2024 Time of Service: 15:27 SUBJECTIVE: [ ] 11/25/24 patient was seen and examined case discussed with the RN. He is still slightly short of breath. Occasional cough. No fever or chills REVIEW OF SYSTEMS CONSTITUTIONAL: Denies fevers, chills, or night sweats. No unintentional weight loss reported. NEUROLOGICAL: Denies headache, amaurosis fugax, motor weakness, sensory deficit, vertigo/spinning sensation, gait abnormalities, or tremors. ENT: No hearing loss, otalgia, otorrhea, rhinitis, rhinorrhea, hoarseness, or sore throat. CARDIOVASCULAR: Denies any exertional angina, dyspnea on exertion, orthopnea, paroxysmal nocturnal dyspnea, palpitations, life-threatening arrhythmias, claudication. PULMONARY: Denies any shortness of breath, cough, phlegm/sputum, hemoptysis, pleuritic chest pain. SLEEP: Denies morning headaches, daytime somnolence or napping. Denies difficulty falling asleep, staying asleep, waking from sleep. Denies knowledge of snoring. GASTROINTESTINAL: Denies any type of dysphagia to either liquids or solids. Denies nausea, vomiting, pyrosis, early satiety, abdominal pain, diarrhea, constipation, or changes in stool consistency or caliber. Denies coffee-ground emesis, hematemesis, hematochezia, or melanotic stools. GENITOURINARY: Denies frequency, urgency, nocturia, hematuria or incontinence (Storage/Irritative symptoms.) Low urinary stream, straining to void, urinary intermittency or hesitancy, splitting of the voiding stream, terminal dribbling. ENDOCRINOLOGIC: Denies polyuria, polydipsia, polyphagia or heat/cold intolerances. HEMATOLOGIC: Denies thrombophilia/previous clots, or coagulopathy/bleeding disorders. ONCOLOGIC: Denies personal history of malignancy. DERMATOLOGIC: Denies rashes or pruritus. PSYCHIATRIC: Denies any suicidal or homicidal ideation. Denies hallucinations. PHYSICAL EXAM GENERAL APPEARANCE: The patient is awake, alert, and oriented, in no acute cardiopulmonary distress. NEUROLOGICAL: Cranial nerves II-XII grossly intact. Motor is 5/5 in bilateral upper and lower extremities proximal to distal. No sensory deficits. HEENT: Face is symmetric. Pupils are equal and reactive. Extraocular movements are intact. NECK: Supple. No JVD. No thyromegaly. No submental, submandibular, pre- /postauricular, occipital or supraclavicular lymphadenopathy. CHEST: Normal chest expansion. No Telemetry. LUNGS: Absence of any rales, rhonchi or any wheezing. CARDIOVASCULAR: Regular. S1 and S2 normal. No appreciable rubs, murmurs or g allops. ABDOMEN: Soft, nontender, and nondistended. There is no rebound, voluntary gua rding, or rigidity. : Deferred. No Joshua. EXTREMITIES: Non-edematous and not cyanotic. No clubbing. Good capillary refill. SKIN: No skin breakdown. Vital Signs (last 8hr) Date Time Temp Pulse Resp B/P (MAP) Pulse Ox O2 Delivery O2 Flow Rate FiO2 11/25/24 12:00 98.8 80 20 116/68 94 Nasal Cannula 9.0 11/25/24 11:49 84 22 11/25/24 09:05 122/94 11/25/24 08:00 98.1 94 20 122/66 94 Nasal Cannula 9.0 11/25/24 07:29 94 22 11/25/24 07:28 94 22 N/Cannula Oximizer Hi LPM 9.0 LABS: Laboratory: Test 11/25/24 10:14 11/25/24 09:41 11/25/24 03:17 11/24/24 06:48 Range/Units Blood Gas Specimen Type Arterial Arterial Blood pH 7.449 7.350-7.450 Arterial Blood Partial Pressure CO2 32 L 35-48 mmHg Arterial Blood Partial Pressure O2 69.5 L 83.0-108.0 mmHg Arterial Blood HCO3 22.0 21.0-28.0 mmol/L Arterial Blood Oxygen Saturation 94.8 94.0-98.0 % Arterial Blood Base Excess -1.1 -2.0-3.0 mmol/L Blood Gas Temperature 37.0 35.5-37.0 CELSIUS Blood Gas Flow-by 9.00 0.00-15.00 L/min Blood Gas Vent Mode 9LNC OXYMIZER ROOM AIR FiO2 56.0 % Blood Gas Specimen Comment RR B-Type Natriuretic Peptide 1250 H 0-100 pg/mL White Blood Count 9.1 # 4.8-10.8 K/uL Red Blood Count 3.80 L 4.50-6.20 MIL/uL Hemoglobin 11.3 L 14.0-18.0 g/dL Hematocrit 34.6 L 42-54 % Mean Corpuscular Volume 91.1 79-99 fL Mean Corpuscular Hemoglobin 29.7 27.0-33.0 pg Mean Corpuscular Hemoglobin Concent 32.7 32.0-36.0 g/dL Red Cell Distribution Width 13.7 11.0-15.5 % Platelet Count 213 130-400 K/uL Mean Platelet Volume 10.0 7.5-10.5 fL Immature Granulocyte % (Auto) 0.7 0-1 % Neutrophils (%) (Auto) 87.3 H 40.0-77.0 % Lymphocytes (%) (Auto) 4.5 L 21.0-51.0 % Monocytes (%) (Auto) 7.4 3.0-13.0 % Eosinophils (%) (Auto) 0.0 0.0-8.0 % Basophils (%) (Auto) 0.1 0.0-5.0 % Neutrophils # (Auto) 7.9 H 1.8-7.7 K/uL Lymphocytes # (Auto) 0.4 L 1.0-4.8 K/uL Monocytes # (Auto) 0.7 0.1-1.0 K/uL Eosinophils # (Auto) 0.00 0.00-0.70 K/uL Basophils # (Auto) 0.01 0.00-0.20 K/uL Absolute Immature Granulocyte (auto 0.06 0-1 K/uL Nucleated Red Blood Cells 0.0 0.0-0.19 % Sodium Level 132 L 136-145 mmol/L Potassium Level 3.9 3.5-5.1 mmol/L Chloride Level 102 101-111 mmol/L Carbon Dioxide Level 26 21-32 mmol/L Blood Urea Nitrogen 34 H 7-18 mg/dL Creatinine 1.3 0.5-1.3 mg/dL Glomerular Filtration Rate Calc 54 >90 mL/min Random Glucose 95 70-105 mg/dL Total Calcium 8.0 L 8.5-10.1 mg/dL Phosphorus Level 3.7 2.5-4.9 mg/dL Magnesium Level 1.80 1.80-2.40 mg/dL Lactic Acid Level 1.7 0.8-2.5 mmol/L Procalcitonin 4.22 H 0.05-0.5 ng/mL Test 11/24/24 06:20 Range/Units Urine Color YELLOW YELLOW Urine Appearance CLOUDY H CLEAR Urine pH 5.5 5.0-8.0 Urine Specific [place] 1.022 1.001-1.031 Urine Protein 50 H NEGATIVE mg/dL Urine Glucose (UA) NEGATIVE NEGATIVE mg/dL Urine Ketones NEGATIVE NEGATIVE mg/dL Urine Occult Blood LARGE H NEGATIVE Urine Nitrate NEGATIVE NEGATIVE Urine Bilirubin NEGATIVE NEGATIVE mg/dL Urine Urobilinogen 0.2 0.2-1.0 mg/dL Urine Leukocyte Esterase NEGATIVE NEGATIVE Lay/uL Urine RBC 6-10 H 0-1 /HPF Urine WBC 6-10 H 0-1 /HPF Urine Squamous Epithelial Cells RARE 0-2 /HPF Urine Bacteria FEW None Seen /HPF Urine Hyaline Casts >100 H 0-1 /LPF /LPF Current Medications Medications (Trade) Dose Ordered Sig/Renata Route PRN Reason Start Time Stop Time Status Last Admin Dose Admin Acetaminophen (TYLenol 325MG TAB) 650 mg Q6H PRN PO TEMPERATURE GREATER THAN 101.5 11/24/24 05:30 12/24/24 05:29 11/24/24 23:45 650 MG Albuterol (DUOneb) 1 UDVIAL [id number] IH 11/24/24 06:00 12/24/24 05:59 11/25/24 11:49 1 UDVIAL Albuterol (DUOneb) 1 UDVIAL [id number] IH 11/24/24 18:00 12/24/24 17:59 Aspirin (Aspirin 81mg Chew Tab) 81 mg DAILY PO 11/24/24 09:00 12/24/24 08:59 11/25/24 09:06 81 MG Atorvastatin Calcium (LIPItor 40MG) 40 mg HS PO 11/24/24 21:00 12/24/24 20:59 Bupropion HCl (WellBUTrin SR 150MG) 150 mg DAILY PO 11/24/24 09:00 12/24/24 08:59 11/25/24 09:06 150 MG Carvedilol (Coreg 6.25MG) 6.25 mg BID PO 11/24/24 09:00 12/24/24 08:59 11/25/24 09:05 6.25 MG Furosemide (LASix 40MG VIAL) 40 mg BID IV 11/25/24 21:00 12/25/24 20:59 Guaifenesin (RobiTUSSin SUGAR-FREE 100 MG/ 5 ML UDCUP) 400 mg Q4H PRN PO cough 11/24/24 05:30 12/24/24 05:29 11/24/24 09:28 400 MG Heparin Sodium (Porcine) (HEParin 5,000 UNIT VIAL) 5,000 unit BID SQ 11/24/24 09:00 12/24/24 08:59 11/25/24 09:13 5,000 UNIT Home Med (Home Medication) 1 each DAILY PO 11/24/24 09:00 12/24/24 08:59 Home Med (Home Medication) Mv-Mn/Iron/FA/ Herbal Cmplx#190 (Vitamin... DAILY PO 11/24/24 09:00 12/24/24 08:59 Hydralazine HCl (APRESOLine 20MG INJ) 10 mg Q6H PRN IV For:SBP above 160;DBP above 90 11/24/24 05:30 12/24/24 05:29 Lactated Ringer's 1,000 ml @ 100 mls/hr Q10H IV 11/24/24 05:30 11/25/24 09:35 DC 11/25/24 03:57 100 MLS/HR Levofloxacin/ Dextrose (LEvaquIN 750 MG/ D5W 150 ML) 750 mg Q48H IV 11/24/24 05:30 12/04/24 05:29 11/24/24 05:56 750 MG Lisinopril (Prinivil 5mg) 5 mg DAILY PO 11/26/24 09:00 12/26/24 08:59 Magnesium Sulfate 50 ml @ 0 mls/hr PROTOCOL PRN IV MAGNESIUM PROTOCOL 11/25/24 12:00 12/25/24 11:59 11/25/24 13:19 25 MLS/HR Montelukast Sodium (SinguLAIR) 10 mg HS PO 11/24/24 21:00 12/24/24 20:59 11/24/24 22:07 10 MG Morphine Sulfate (morPHINE 2MG SYG) 2 mg Q4H PRN IVP SEVERE PAIN (7-10) 11/24/24 06:00 12/01/24 05:59 11/24/24 07:56 2 MG Olanzapine (ZyPREXA 5 mg tab) 2.5 mg HS PO 11/24/24 21:00 12/24/24 20:59 11/24/24 21:44 2.5 MG Ondansetron HCl (zoFRAN 4MG INJ) 4 mg Q6H PRN IV NAUSEA/VOMITING 11/24/24 05:30 12/24/24 05:29 Pantoprazole Sodium (PROTonix 40MG TAB) 40 mg DAILY PO 11/24/24 09:00 12/24/24 08:59 11/25/24 09:05 40 MG Potassium Chloride (K-Dur/Klor-Con 20meq) 20 meq AD PRN PO POTASSIUM PROTOCOL 11/25/24 10:30 12/25/24 10:29 Potassium Chloride (KCl 10% Elixir 20meq/15ml) 20 meq AD PRN PO POTASSIUM PROTOCOL 11/25/24 10:30 12/25/24 10:29 DIAGNOSTICS / RADIOLOGY: [ ] ASSESSMENT: [ ] PLAN: [ ] DONNA HOYOS MD Nov 25, 2024 15:27
[2024-11-25] MEDS: furoSEMIDE 40MG VIAL IV SCH (21:35)
[2024-11-25] MEDS: PoTASSium chl 10% ELIXIR 20MEQ 20 MEQ/15 ML UDCUP PO ONE (21:41)
[2024-11-26] VITALS (12 sets, daily range): BP systolic 96–135; BP diastolic 54–85; PULSE 77–96; RESP 19–22; TEMP 97.3–98.5; O2SAT 90–93
--- NOTE | 2024-11-26 07:28 | PN ---
PROBLEM LIST: * Syncope versus presyncope with head trauma. * Pneumonia, present on admission. * History of coronary artery disease with remote coronary artery bypass graft surgery x 3 in 2024 in [place]. * History of multiple stent placements in [place], questionable date; however, several years ago. * Echocardiography, 11/21/2024, revealing an EF of 50-55% with no significant valvular pathology. * History of heavy tobacco use, stopped in 2004. * Chronic kidney disease, stage 3. * Sepsis. * Frail, debilitated octogenarian. This gentleman has been hospitalized predominantly because of weakness, debility and other syncope or presyncope. He fell in the bathroom and hit his head. He has had persistent symptoms of shortness of breath. More than likely, he has underlying COPD secondary to prolonged history of smoking. The patient has been hospitalized and initially received fluid administration; however, Dr. Dolan saw him and gave him diuretics yesterday. Overnight, the patient has been afebrile. His heart rate has been in the 85-90 per minute range. His respiratory rate has been 18-22. Blood pressure this morning is in the 130 systolic range. He is saturating at 95% on 8 liters of high-flow nasal cannula system. The patient's exam is remarkable for bilateral rales with chronic sounding rhonchi with scattered wheezes. The patient has a prolonged expiratory phase. The cardiac exam is remarkable for a soft physiologic murmur with distant heart sounds. The abdomen is benign and extremities are remarkable for trace edema. Laboratory studies were performed yesterday had revealed a sodium of 132, a potassium of 3.9, a chloride of 102, CO2 is 26. The patient's BUN was up to 34 and the creatinine was down to 1.3 and GFR was up to 54 with a random glucose of 95. The calcium was low at 8.0. Phosphorus was normal at 3.7 and the magnesium was 1.80. The BNP was measured at 1250. The patient's white count is down to 9.1 from 4.5 on the . His H and H were 11.3 and 34.6 respectively, the platelet count was measured at 213,000. Of note is that in reviewing the patient's renal history, it is evident that his creatinine was up to 1.3 and has also been accompanied by a GFR that has been as low as 36, which is now up to 54 with the current regimen. The patient's medications include lisinopril 5 mg daily, furosemide 40 mg IV b.i.d., Singulair, Zyprexa, atorvastatin, albuterol, DuoNeb, bupropion, carvedilol, aspirin, pantoprazole, subcutaneous heparin, Levaquin, and p.r.n. medications. At this point, we will continue the current management and hopefully the patient's pneumonia and pulmonary status will improve with the current medications. I think it is prudent at some as an outpatient to obtain a 1-week event monitor. The patient is scheduled to follow up with Dr. Abdirahman Weaver. TID: [id number] RECEIPT: [id number]
[2024-11-26] MEDS: LISINOPRIL 5 MG TABLET PO SCH (08:53)
--- NOTE | 2024-11-26 12:35 | NUR ---
NURSE NOTE 1225-UPON TO TRANSFER PT TO [facility] IN WHEELCHAIR, PT IS LETHARGIC PRIOR TO GETTING IN ELEVATOR WITH TRANSPORTER IN WHEELCHAIR AND IS TRANSFERRED BACK IN BED. BP IS TAKEN 84/52 HR 68. 1235- BP 103/58 HR 74. PT IS IN BED LOW AND LOCKED, SIDERAILS X2 UP. 92% @ 9L NC OXYMIZER CANNULA.
--- NOTE | 2024-11-26 13:38 | NUR ---
MBSS attempted and now on HOLD UNTIL 11/28/2024 Orders for MBSS received; however, patient with sudden decline of alertness during transit to radiology. Patient was taken back to room and nurse Chantal notified. MBSS will be rescheduled until Tuesday11/28/2024 due to radiology down tomorrow. All questions answered at this time. Addendum: 11/26/[address] JUANITA VICTOR Amended: Links added.
--- NOTE | 2024-11-26 15:55 | NUR ---
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
--- NOTE | 2024-11-26 16:12 | PN ---
[facility] PROGRESS NOTE Date of Service: Nov 26, 2024 Time of Service: 15:57 SUBJECTIVE: Mr. Daniel is a 84-year-old male that was seen and examined today on 11/24/2024. Patient is a good historian of personal health Patient states that he came to emergency department with a chief complaint of weakness. Onset was 11/23/2024. Location is to bilateral lower extremities. Duration is constant. Character is described as, my legs are too weak to walk very far. There was no alleviating factors. Symptoms are aggravated with physical activity. Patient reports two associated falls tonight once at midnight and 1:23 a.m.. Today in the emergency department WBCs 12.5, left shift neutrophils 81.1%, creatinine 1.8, chest x-ray is pending radiology interpretation however my initial impression is that there was a left lower lobe infiltrate. Additionally patient arrived with a temperature of 100.8, heart rate 106 and suspected source of infection being lungs patient met clinical sepsis criteria 11/25/24 patient was seen and examined case discussed with the RN. He is still slightly short of breath. Occasional cough. No fever or chills 11/26/2024 patient was seen in room 321. Patient is alert, awake and oriented to time place person. Patient's labs show WBC came down to 9.1 from 12.5, hemoglobin 11.3 and chemistries show sodium 132, potassium 3.9 and creatinine 1.3, BUN 34. Patient is hemodynamically stable with temperature 97.3, pulse 77, respiratory rate 21, blood pressure 126/75. Patient is currently requiring 9 L O2 high-flow nasal cannula and is saturating at 91%, pulmonology has been consulted for the case to evaluate further. Patient did not have oxygen requirement at home, and chest x-ray showed bilateral pulmonary infiltrates. Patient followed closely. REVIEW OF SYSTEMS CONSTITUTIONAL: Denies fevers, chills, or night sweats. No unintentional weight loss reported. NEUROLOGICAL: Denies headache, amaurosis fugax, motor weakness, sensory deficit, vertigo/spinning sensation, gait abnormalities, or tremors. ENT: No hearing loss, otalgia, otorrhea, rhinitis, rhinorrhea, hoarseness, or sore throat. CARDIOVASCULAR: Denies any exertional angina, dyspnea on exertion, orthopnea, paroxysmal nocturnal dyspnea, palpitations, life-threatening arrhythmias, claudication. PULMONARY: Denies any shortness of breath, cough, phlegm/sputum, hemoptysis, pleuritic chest pain. SLEEP: Denies morning headaches, daytime somnolence or napping. Denies difficulty falling asleep, staying asleep, waking from sleep. Denies knowledge of snoring. GASTROINTESTINAL: Denies any type of dysphagia to either liquids or solids. Denies nausea, vomiting, pyrosis, early satiety, abdominal pain, diarrhea, constipation, or changes in stool consistency or caliber. Denies coffee-ground emesis, hematemesis, hematochezia, or melanotic stools. GENITOURINARY: Denies frequency, urgency, nocturia, hematuria or incontinence (Storage/Irritative symptoms.) Low urinary stream, straining to void, urinary intermittency or hesitancy, splitting of the voiding stream, terminal dribbling. ENDOCRINOLOGIC: Denies polyuria, polydipsia, polyphagia or heat/cold intolerances. HEMATOLOGIC: Denies thrombophilia/previous clots, or coagulopathy/bleeding disorders. ONCOLOGIC: Denies personal history of malignancy. DERMATOLOGIC: Denies rashes or pruritus. PSYCHIATRIC: Denies any suicidal or homicidal ideation. Denies hallucinations. PHYSICAL EXAM GENERAL APPEARANCE: The patient is awake, alert, and oriented, in no acute cardiopulmonary distress. NEUROLOGICAL: Cranial nerves II-XII grossly intact. Motor is 5/5 in bilateral upper and lower extremities proximal to distal. No sensory deficits. HEENT: Face is symmetric. Pupils are equal and reactive. Extraocular movements are intact. NECK: Supple. No JVD. No thyromegaly. No submental, submandibular, pre- /postauricular, occipital or supraclavicular lymphadenopathy. CHEST: Normal chest expansion. No Telemetry. LUNGS: Absence of any rales, rhonchi or any wheezing. CARDIOVASCULAR: Regular. S1 and S2 normal. No appreciable rubs, murmurs or gallops. ABDOMEN: Soft, nontender, and nondistended. There is no rebound, voluntary guarding, or rigidity. : Deferred. No Joshua. EXTREMITIES: Non-edematous and not cyanotic. No clubbing. Good capillary refill. SKIN: No skin breakdown. Vital Signs (last 8hr) Date Time Temp Pulse Resp B/P (MAP) Pulse Ox O2 Delivery O2 Flow Rate FiO2 11/26/24 12:00 97.3 77 21 126/75 91 Nasal Cannula 9.0 11/26/24 11:34 87 22 11/26/24 08:52 130/85 11/26/24 08:00 98.4 93 20 130/85 90 Nasal Cannula 9.0 LABS: Laboratory: Test 11/26/24 13:27 11/25/24 10:14 11/25/24 09:41 11/25/24 03:17 Range/Units Whole Blood Glucose 111 H 70-110 MG/DL Blood Gas Specimen Type Arterial Arterial Blood pH 7.449 7.350-7.450 Arterial Blood Partial Pressure CO2 32 L 35-48 mmHg Arterial Blood Partial Pressure O2 69.5 L 83.0-108.0 mmHg Arterial Blood HCO3 22.0 21.0-28.0 mmol/L Arterial Blood Oxygen Saturation 94.8 94.0-98.0 % Arterial Blood Base Excess -1.1 -2.0-3.0 mmol/L Blood Gas Temperature 37.0 35.5-37.0 CELSIUS Blood Gas Flow-by 9.00 0.00-15.00 L/min Blood Gas Vent Mode 9LNC OXYMIZER ROOM AIR FiO2 56.0 % Blood Gas Specimen Comment RR B-Type Natriuretic Peptide 1250 H 0-100 pg/mL White Blood Count 9.1 # 4.8-10.8 K/uL Red Blood Count 3.80 L 4.50-6.20 MIL/uL Hemoglobin 11.3 L 14.0-18.0 g/dL Hematocrit 34.6 L 42-54 % Mean Corpuscular Volume 91.1 79-99 fL Mean Corpuscular Hemoglobin 29.7 27.0-33.0 pg Mean Corpuscular Hemoglobin Concent 32.7 32.0-36.0 g/dL Red Cell Distribution Width 13.7 11.0-15.5 % Platelet Count 213 130-400 K/uL Mean Platelet Volume 10.0 7.5-10.5 fL Immature Granulocyte % (Auto) 0.7 0-1 % Neutrophils (%) (Auto) 87.3 H 40.0-77.0 % Lymphocytes (%) (Auto) 4.5 L 21.0-51.0 % Monocytes (%) (Auto) 7.4 3.0-13.0 % Eosinophils (%) (Auto) 0.0 0.0-8.0 % Basophils (%) (Auto) 0.1 0.0-5.0 % Neutrophils # (Auto) 7.9 H 1.8-7.7 K/uL Lymphocytes # (Auto) 0.4 L 1.0-4.8 K/uL Monocytes # (Auto) 0.7 0.1-1.0 K/uL Eosinophils # (Auto) 0.00 0.00-0.70 K/uL Basophils # (Auto) 0.01 0.00-0.20 K/uL Absolute Immature Granulocyte (auto 0.06 0-1 K/uL Nucleated Red Blood Cells 0.0 0.0-0.19 % Sodium Level 132 L 136-145 mmol/L Potassium Level 3.9 3.5-5.1 mmol/L Chloride Level 102 101-111 mmol/L Carbon Dioxide Level 26 21-32 mmol/L Blood Urea Nitrogen 34 H 7-18 mg/dL Creatinine 1.3 0.5-1.3 mg/dL Glomerular Filtration Rate Calc 54 >90 mL/min Random Glucose 95 70-105 mg/dL Total Calcium 8.0 L 8.5-10.1 mg/dL Phosphorus Level 3.7 2.5-4.9 mg/dL Magnesium Level 1.80 1.80-2.40 mg/dL Current Medications Medications (Trade) Dose Ordered Sig/Renata Route PRN Reason Start Time Stop Time Status Last Admin Dose Admin Acetaminophen (TYLenol 325MG TAB) 650 mg Q6H PRN PO TEMPERATURE GREATER THAN 101.5 11/24/24 05:30 12/24/24 05:29 11/24/24 23:45 650 MG Albuterol (DUOneb) 1 UDVIAL [id number] IH 11/24/24 06:00 12/24/24 05:59 11/26/24 11:34 1 UDVIAL Albuterol (DUOneb) 1 UDVIAL [id number] IH 11/24/24 18:00 12/24/24 17:59 Aspirin (Aspirin 81mg Chew Tab) 81 mg DAILY PO 11/24/24 09:00 12/24/24 08:59 11/26/24 08:53 81 MG Atorvastatin Calcium (LIPItor 40MG) 40 mg HS PO 11/24/24 21:00 12/24/24 20:59 11/25/24 21:35 40 MG Bupropion HCl (WellBUTrin SR 150MG) 150 mg DAILY PO 11/24/24 09:00 12/24/24 08:59 11/26/24 08:53 150 MG Carvedilol (Coreg 6.25MG) 6.25 mg BID PO 11/24/24 09:00 12/24/24 08:59 11/26/24 08:52 6.25 MG Furosemide (LASix 40MG VIAL) 40 mg BID IV 11/25/24 21:00 12/25/24 20:59 11/26/24 08:53 40 MG Guaifenesin (RobiTUSSin SUGAR-FREE 100 MG/ 5 ML UDCUP) 400 mg Q4H PRN PO cough 11/24/24 05:30 12/24/24 05:29 11/24/24 09:28 400 MG Heparin Sodium (Porcine) (HEParin 5,000 UNIT VIAL) 5,000 unit BID SQ 11/24/24 09:00 12/24/24 08:59 11/26/24 08:56 5,000 UNIT Home Med (Home Medication) 1 each DAILY PO 11/24/24 09:00 12/24/24 08:59 Home Med (Home Medication) Mv-Mn/Iron/FA/ Herbal Cmplx#190 (Vitamin... DAILY PO 11/24/24 09:00 12/24/24 08:59 Hydralazine HCl (APRESOLine 20MG INJ) 10 mg Q6H PRN IV For:SBP above 160;DBP above 90 11/24/24 05:30 12/24/24 05:29 Lactated Ringer's 1,000 ml @ 100 mls/hr Q10H IV 11/24/24 05:30 11/25/24 09:35 DC 11/25/24 03:57 100 MLS/HR Levofloxacin/ Dextrose (LEvaquIN 750 MG/ D5W 150 ML) 750 mg Q48H IV 11/24/24 05:30 12/04/24 05:29 11/26/24 05:01 750 MG Lisinopril (Prinivil 5mg) 5 mg DAILY PO 11/26/24 09:00 12/26/24 08:59 11/26/24 08:53 5 MG Magnesium Sulfate 50 ml @ 0 mls/hr PROTOCOL PRN IV MAGNESIUM PROTOCOL 11/25/24 12:00 12/25/24 11:59 11/25/24 13:19 25 MLS/HR Montelukast Sodium (SinguLAIR) 10 mg HS PO 11/24/24 21:00 12/24/24 20:59 11/25/24 21:35 10 MG Morphine Sulfate (morPHINE 2MG SYG) 2 mg Q4H PRN IVP SEVERE PAIN (7-10) 11/24/24 06:00 12/01/24 05:59 11/24/24 07:56 2 MG Olanzapine (ZyPREXA 5 mg tab) 2.5 mg HS PO 11/24/24 21:00 12/24/24 20:59 11/25/24 21:35 2.5 MG Ondansetron HCl (zoFRAN 4MG INJ) 4 mg Q6H PRN IV NAUSEA/VOMITING 11/24/24 05:30 12/24/24 05:29 Pantoprazole Sodium (PROTonix 40MG TAB) 40 mg DAILY PO 11/24/24 09:00 12/24/24 08:59 11/26/24 08:53 40 MG Potassium Chloride (K-Dur/Klor-Con 20meq) 20 meq AD PRN PO POTASSIUM PROTOCOL 11/25/24 10:30 12/25/24 10:29 Potassium Chloride (KCl 10% Elixir 20meq/15ml) 20 meq AD PRN PO POTASSIUM PROTOCOL 11/25/24 10:30 12/25/24 10:29 DIAGNOSTICS / RADIOLOGY: [ ] ASSESSMENT: Pneumonia POA History of coronary artery disease CABG x3 CKD stage 3 POA Sepsis POA Fall POA Bilateral Nasal bone fractures POA Soft tissue emphysema POA Depression POA Frailty POA Hyponatremia POA PLAN: Continue the current medication regimen Monitor a.m. labs Consult pulmonology Follow cardiology recommendations Continue inhalers, nebulizers as needed Try to wean off oxygen as tolerated DVT prophylaxis with heparin and GI prophylaxis with pantoprazole ATTESTATION BY PHYSICIAN I have seen and examined the patient. I reviewed the documentation, medical deci harsh making, and treatment plan as noted by the resident provider above. I agree with the findings and plan of care. Missael Garland MD, KEERTI K MD Nov 26, 2024 16:12
[2024-11-27] VITALS (15 sets, daily range): BP systolic 94–148; BP diastolic 43–95; PULSE 60–111; RESP 20–38; TEMP 97.6–100.2; O2SAT 88–92
--- NOTE | 2024-11-27 01:00 | NUR ---
Pt sating high 80s. Pt has prn bipap orders. Pt refusing to be placed on bipap at this time. Refusal form was presented but pt was unable to sign due to being to weak and shaky. PT currently on NRB Sating 91%. Pt being uncompliant with the NRB. Mare GALLEGOS notified. Addendum: 11/27/24 at 0103 by IMTIAZ KIM, RT RT Amended: Links added.
[2024-11-27 06:56] LABS: BASOPHILS # (AUTO) 0.01 K/uL (0.00-0.20); BASOPHILS % (AUTO) 0.1 % (0.0-5.0); HEMATOCRIT 38.7 % (42-54); IMMATURE GRANULOCYTE ABSOLUTE 0.05 K/uL (0-1); LYMPHOCYTES # (AUTO) 0.6 K/uL (1.0-4.8); LYMPHOCYTES % (AUTO) 7.6 % (21.0-51.0); MEAN CORPUSCULAR HEMOGLOBIN 29.2 pg (27.0-33.0); MEAN CORPUSCULAR VOLUME 91.3 fL (79-99); MONOCYTES # (AUTO) 0.6 K/uL (0.1-1.0); MONOCYTES % (AUTO) 7.3 % (3.0-13.0); NEUTROPHILS # (AUTO) 6.5 K/uL (1.8-7.7); NEUTROPHILS % (AUTO) 84.3 % (40.0-77.0); PLATELET COUNT (AUTO) 234 K/uL (130-400); RED BLOOD CELL COUNT(AUTO) 4.24 MIL/uL (4.50-6.20); RED CELL DISTRIBUTION WIDTH 13.9 % (11.0-15.5); WHITE BLOOD COUNT (AUTO) 7.7 K/uL (4.8-10.8)
[2024-11-27 07:00] LABS: CREATININE 2.4 mg/dL (0.5-1.3); POTASSIUM 3.8 mmol/L (3.5-5.1)
[2024-11-27] MEDS: carVEDIlol 3.125 MG TABLET PO SCH (08:18)
--- NOTE | 2024-11-27 08:55 | NUR ---
CB FROM DR. GARAY, AWARE OF CONSULT
[2024-11-27 09:21] LABS: APPEARANCE,URINE CLOUDY (CLEAR); BILIRUBIN,URINE NEGATIVE (NEGATIVE); COLOR,URINE LIGHT-YELLOW (YELLOW); GLUCOSE, URINE (UA) NEGATIVE (NEGATIVE); KETONES,URINE NEGATIVE (NEGATIVE); LEUKOCYTE ESTERASE ,URINE NEGATIVE Leu/uL (NEGATIVE); NITRATE,URINE NEGATIVE (NEGATIVE); OCCULT BLOOD,URINE NEGATIVE (NEGATIVE); PROTEIN,URINE 10 mg/dL (NEGATIVE); UROBILINOGEN,URINE 0.2 mg/dL (0.2-1.0)
[2024-11-27 09:23] LABS: CHLORIDE,URINE RANDOM 61 mmol/L (110-250); POTASSIUM,URINE RANDOM 55 mmol/L (25-125); SODIUM,URINE RANDOM 23 mmol/l (40-220)
[2024-11-27 09:24] LABS: ADD UA MICROSCOPIC YES
[2024-11-27 09:27] LABS: BACTERIA,URINE RARE /HPF (None Seen); MUCUS,URINE RARE LPF (None Seen); OTHER CASTS, URINE 6 /LPF (None Seen); RBC,URINE 0-1 /HPF (0-1); SQUAMOUS EPITHELIAL CELL,UR RARE /HPF (0-2)
--- NOTE | 2024-11-27 10:51 | PN ---
PROBLEM LIST: * Syncope versus presyncope with head trauma, likely due to postural hypotension. * Pneumonia on admission. * Known history of coronary artery disease with remote coronary artery bypass graft surgery x 3 in [place] in 2024. * History of multiple stent implants in [place], questionable date; however, remote, question number or location of stents. * EF of 50-55% with no significant valvular pathology by echocardiography on 11/21/2024. * History of heavy tobacco use, stopped in 2004. * Chronic kidney disease, stage 3 with superimposed acute kidney failure. * Sepsis. * Frail, debilitated [age]ogenarian. This gentleman has been hospitalized because of multiple problems as outlined above. He has been having significant desaturation and has actually been on higher doses of oxygen. The patient was being taken to a chair yesterday when he had a drop in his systolic blood pressure, had a mini collapse, but did not faint. His rhythm has been stable with no additional issues. The patient's current vital signs have revealed heart rate in the 90-100 per minute range. His blood pressure has been marginal at 100-110 systolic/50-60 diastolic. His pulse oximetry had dropped to 87 and he is being evaluated by primary care. It would be reasonable to consider assessment by Pulmonary Critical Care. The patient is currently on a nonrebreather mask at 15 liters per minute. This gentleman is currently maintained on lisinopril 5 mg daily, furosemide 40 b.i.d. IV, Singulair, Zyprexa, atorvastatin, DuoNeb, multiple vitamin and iron supplement with vitamin C, bupropion, carvedilol 6.25 p.o. b.i.d., aspirin 81 mg daily, pantoprazole 40 mg daily, subcutaneous heparin, Levaquin, and p.r.n. medications. The patient's laboratory studies this morning reveal a white count of 7.7 with an H and H of 12.4 and 38.7 respectively. The platelet count is currently 234,000. The patient's chemistries have revealed significant changes with a sodium of 146, a potassium of 3.8, chloride is 106, CO2 is 30, BUN has gone up from 34 on the 9th to 65 now. The creatinine has also gone up from 1.3 to 2.4. GFR has dropped from 54 to 26. Random glucose is 116. The patient's total calcium is 8.3. Given the change in the patient's status, I have recommended that we discontinue lisinopril. I will also reduce the dose of carvedilol at 3.125 b.i.d. I will reduce the Bumex from 40 IV b.i.d. to 40 IV daily. I will obtain an ultrasound of the kidneys and a renal artery duplex. I will also obtain urine for urinalysis as a repeat and I will check urine electrolytes. The patient may benefit from Nephrology consultation and Pulmonary Critical Care assessment. Long-term prognosis is guarded given his multiple problems. TID: [id number] RECEIPT: [id number]
[2024-11-27] MEDS: furoSEMIDE 40MG VIAL IV SCH (12:23)
--- NOTE | 2024-11-27 12:47 | HMCIMG ---
RENAL ARTERY ULTRASOUND. COMPARISON: None available. FINDINGS: There is no significant aortic plaque, and the peak systolic velocity in the aorta is normal before and after the renal artery takeoff bilaterally. The highest peak systolic velocity of the renal arteries is normal bilaterally. Bilateral RAR's are within normal limits. IMPRESSION: No evidence of renal artery stenosis.
--- NOTE | 2024-11-27 14:24 | CONS ---
NEPHROLOGY CONSULTATION NOTE Date/Time Patient Seen: Nov 27, 2024 1305 Reason for Consultation: Renal failure, generalized weakness HISTORY OF PRESENT ILLNESS: This is an 84-year-old male with a past medical history of coronary artery disease S/p CABG in 2004, hypertension, dyslipidemia. He presented to emergency room S/p fall. Continues to be followed by Cardiology. Urine culture has been negative He continues on Lasix 40 mg IV daily. Blood cultures has been negative x3 days. He was noted to have elevated BUN/creatinine. We are consulted renal failure. Renal function remains elevated Electrolytes show a sodium of 146 mmol/L He was seen in the medical floor, in no acute distress No family at the bedside Prognosis remains guarded REVIEW OF SYSTEMS: GENERAL: Positive for generalized weakness NEUROLOGIC: Negative for any blurry vision, blind spots, double vision, facial asymmetry, dysphagia, dysarthria, hemiparesis, hemisensory deficits, vertigo, ataxia. HEENT: Negative for any head trauma, neck trauma, neck stiffness, photophobia, phonophobia, sinusitis, rhinitis. CARDIAC: Negative for any chest pain, dyspnea on exertion, paroxysmal nocturnal dyspnea, peripheral edema. PULMONARY: Negative for any shortness of breath, wheezing, COPD, or TB exposure. GASTROINTESTINAL: Negative for any abdominal pain, nausea, vomiting, bright red blood per rectum, melena. GENITOURINARY: Negative for any dysuria, hematuria, incontinence. INTEGUMENTARY: Negative for any rashes, cuts, insect bites. RHEUMATOLOGIC: Negative for any joint pains, photosensitive rashes, history of vasculitis or kidney problems. HEMATOLOGIC: Negative for any abnormal bruising, frequent infections or bleeding. PAST MEDICAL HISTORY: Coronary artery disease Hypertension Dyslipidemia PAST SURGICAL HISTORY: CABG PAST SOCIAL HISTORY: Former smoker FAMILY HISTORY: Denies use of alcohol, tobacco or illicit drugs PHYSICAL EXAM: GENERAL: Alert and oriented x 3. No acute distress. Well-nourished. EYES: EOMI. Anicteric. HENT: Moist mucous membranes. No scleral icterus. No cervical lymphadenopathy. LUNGS: Clear to auscultation bilaterally. No accessory muscle use. CARDIOVASCULAR: Regular rate and rhythm. No murmur. No JVD. ABDOMEN: Soft, non-tender and non-distended. No palpable masses. EXTREMITIES: No edema. Non-tender. SKIN: No rashes or lesions. Warm. NEUROLOGIC: No focal neurological deficits. CN II-XII grossly intact, but not individually tested. PSYCHIATRIC: Cooperative. Appropriate mood and affect. MEDICATIONS: [ ] Current Medications Medications (Trade) Dose Ordered Sig/Renata Route PRN Reason Start Time Stop Time Status Last Admin Dose Admin Acetaminophen (TYLenol 325MG TAB) 650 mg Q6H PRN PO TEMPERATURE GREATER THAN 101.5 11/24/24 05:30 12/24/24 05:29 11/24/24 23:45 650 MG Albuterol (DUOneb) 1 UDVIAL [id number] IH 11/24/24 06:00 11/27/24 07:26 DC 11/27/24 06:54 1 UDVIAL Albuterol (DUOneb) 1 UDVIAL [id number] IH 11/24/24 18:00 12/24/24 17:59 11/27/24 10:51 1 UDVIAL Aspirin (Aspirin 81mg Chew Tab) 81 mg DAILY PO 11/24/24 09:00 12/24/24 08:59 11/27/24 08:18 81 MG Atorvastatin Calcium (LIPItor 40MG) 40 mg HS PO 11/24/24 21:00 12/24/24 20:59 11/26/24 20:56 40 MG Bupropion HCl (WellBUTrin SR 150MG) 150 mg DAILY PO 11/24/24 09:00 12/24/24 08:59 11/27/24 08:18 150 MG Carvedilol (Coreg 3.125MG) 3.125 mg BID PO 11/27/24 09:00 12/27/24 08:59 11/27/24 08:18 3.125 MG Carvedilol (Coreg 6.25MG) 6.25 mg BID PO 11/24/24 09:00 11/27/24 07:23 DC 11/26/24 20:56 6.25 MG Furosemide (LASix 40MG VIAL) 40 mg AM IV 11/27/24 09:00 12/25/24 20:59 11/27/24 12:23 40 MG Furosemide (LASix 40MG VIAL) 40 mg BID IV 11/25/24 21:00 11/27/24 07:23 DC 11/26/24 20:57 40 MG Guaifenesin (RobiTUSSin SUGAR-FREE 100 MG/ 5 ML UDCUP) 400 mg Q4H PRN PO cough 11/24/24 05:30 12/24/24 05:29 11/24/24 09:28 400 MG Heparin Sodium (Porcine) (HEParin 5,000 UNIT VIAL) 5,000 unit BID SQ 11/24/24 09:00 12/24/24 08:59 11/27/24 08:19 5,000 UNIT Home Med (Home Medication) 1 each DAILY PO 11/24/24 09:00 12/24/24 08:59 Home Med (Home Medication) Mv-Mn/Iron/FA/ Herbal Cmplx#190 (Vitamin... DAILY PO 11/24/24 09:00 12/24/24 08:59 Hydralazine HCl (APRESOLine 20MG INJ) 10 mg Q6H PRN IV For:SBP above 160;DBP above 90 11/24/24 05:30 12/24/24 05:29 Lactated Ringer's 1,000 ml @ 100 mls/hr Q10H IV 11/24/24 05:30 11/25/24 09:35 DC 11/25/24 03:57 100 MLS/HR Levofloxacin/ Dextrose (LEvaquIN 750 MG/ D5W 150 ML) 750 mg Q48H IV 11/24/24 05:30 12/04/24 05:29 11/26/24 05:01 750 MG Lisinopril (Prinivil 5mg) 5 mg DAILY PO 11/26/24 09:00 11/27/24 07:23 DC 11/26/24 08:53 5 MG Magnesium Sulfate 50 ml @ 0 mls/hr PROTOCOL PRN IV MAGNESIUM PROTOCOL 11/25/24 12:00 12/25/24 11:59 11/25/24 13:19 25 MLS/HR Montelukast Sodium (SinguLAIR) 10 mg HS PO 11/24/24 21:00 12/24/24 20:59 11/26/24 20:56 10 MG Morphine Sulfate (morPHINE 2MG SYG) 2 mg Q4H PRN IVP SEVERE PAIN (7-10) 11/24/24 06:00 12/01/24 05:59 11/24/24 07:56 2 MG Olanzapine (ZyPREXA 5 mg tab) 2.5 mg HS PO 11/24/24 21:00 12/24/24 20:59 11/26/24 20:56 2.5 MG Ondansetron HCl (zoFRAN 4MG INJ) 4 mg Q6H PRN IV NAUSEA/VOMITING 11/24/24 05:30 12/24/24 05:29 Pantoprazole Sodium (PROTonix 40MG TAB) 40 mg DAILY PO 11/24/24 09:00 12/24/24 08:59 11/27/24 08:18 40 MG Potassium Chloride (K-Dur/Klor-Con 20meq) 20 meq AD PRN PO POTASSIUM PROTOCOL 11/25/24 10:30 12/25/24 10:29 Potassium Chloride (KCl 10% Elixir 20meq/15ml) 20 meq AD PRN PO POTASSIUM PROTOCOL 11/25/24 10:30 12/25/24 10:29 Vital Signs (last 8hr) Date Time Temp Pulse Resp B/P (MAP) Pulse Ox O2 Delivery O2 Flow Rate FiO2 11/27/24 12:00 99.7 108 22 148/92 92 Nonrebreathing Mask 15.0 11/27/24 10:51 110 24 11/27/24 08:30 91 N/C Oxymizer Hi LPM* 15 N/A Non-Rebreather+ 11/27/24 08:18 104/62 11/27/24 08:00 98.4 108 21 104/62 91 Nonrebreathing Mask 15.0 11/27/24 06:56 102 24 11/27/24 06:56 103 20 Non Rebreather 15.0 DIAGNOSTICS / RADIOLOGY: REASON: BRENDA ORDERING PHYSICIAN: Maurice LONGORIA II, MD PROCEDURE: ART IN OUT - US ART IN & VEIN OUT RENAL ARTERY ULTRASOUND. COMPARISON: None available. FINDINGS: There is no significant aortic plaque, and the peak systolic velocity in the aorta is normal before and after the renal artery takeoff bilaterally. The highest peak systolic velocity of the renal arteries is normal bilaterally. Bilateral RAR's are within normal limits. IMPRESSION: No evidence of renal artery stenosis. DICTATED BY: KAREN HEATH MD DATE: 11/27/24 1244 REASON: BRENDA ORDERING PHYSICIAN: Maurice LONGORIA II, MD PROCEDURE: ART IN OUT - US ART IN & VEIN OUT RENAL ARTERY ULTRASOUND. COMPARISON: None available. FINDINGS: There is no significant aortic plaque, and the peak systolic velocity in the aorta is normal before and after the renal artery takeoff bilaterally. The highest peak systolic velocity of the renal arteries is normal bilaterally. Bilateral RAR's are within normal limits. IMPRESSION: No evidence of renal artery stenosis. DICTATED BY: KAREN HEATH MD DATE: 11/27/24 1244 REASON: fall with shoulder pain ORDERING PHYSICIAN: DIEGO BOLDEN MD PROCEDURE: CXR1VW - CHEST 1VW CHEST 1VW HISTORY: Status post fall COMPARISON: 11/21/2024 FINDINGS: A frontal projection of the chest was obtained. Mild bilateral pulmonary infiltrates are seen may be related to mild pulmonary vascular congestion with possible superimposed pneumonitis. The heart is borderline enlarged. All the lines and tubes are again seen in place. Degenerative changes are seen. IMPRESSION: 1. Mild bilateral pulmonary infiltrates are seen may be related to mild pulmonary vascular congestion with possible superimposed pneumonitis. DICTATED BY: NOELLE MARIA MD DATE: 11/24/24 0835 REASON: fall on face from standing ORDERING PHYSICIAN: DIEGO BOLDEN MD PROCEDURE: MAXFACI WO - CT MAXILLOFACIAL W/O CONTRAST CT MAXILLOFACIAL W/O CONTRAST HISTORY: No additional history given. COMPARISON: None TECHNIQUE: Multiple sequential high-resolution axial images of the paranasal sinuses were obtained. Postprocessing sagittal and coronal reconstruction images were also obtained. Patient was not given contrast through intravenous route. FINDINGS: Nasal septum is grossly midline. There is no evidence of mucoperiosteal thickening involving the paranasal sinuses. The infundibula are patent bilaterally. Mildly depressed fracture of the frontal nasal bones with left more than right. There is soft tissue swelling with soft tissue emphysema. There is no evidence of air-fluid level in the paranasal sinuses. Parapharyngeal fat planes are preserved bilaterally. IMPRESSION: 1. Mildly depressed fracture of the frontal nasal bones with left more than right. There is soft tissue swelling with soft tissue emphysema. CT was performed with one or more following dose reduction techniques: automated exposure control, adjustment of the mA and kv according to patient's size, or use of a iterative reconstruction technique. DICTATED BY: NOELLE MARIA MD DATE: 11/24/24 0736 LABORATORY: [ ] Hematology Labs: Test 11/27/24 06:38 Range/Units White Blood Count 7.7 4.8-10.8 K/uL Red Blood Count 4.24 L 4.50-6.20 MIL/uL Hemoglobin 12.4 L 14.0-18.0 g/dL Hematocrit 38.7 L 42-54 % Mean Corpuscular Volume 91.3 79-99 fL Mean Corpuscular Hemoglobin 29.2 27.0-33.0 pg Mean Corpuscular Hemoglobin Concent 32.0 32.0-36.0 g/dL Red Cell Distribution Width 13.9 11.0-15.5 % Platelet Count 234 130-400 K/uL Mean Platelet Volume 10.0 7.5-10.5 fL Immature Granulocyte % (Auto) 0.7 0-1 % Neutrophils (%) (Auto) 84.3 H 40.0-77.0 % Lymphocytes (%) (Auto) 7.6 L 21.0-51.0 % Monocytes (%) (Auto) 7.3 3.0-13.0 % Eosinophils (%) (Auto) 0.0 0.0-8.0 % Basophils (%) (Auto) 0.1 0.0-5.0 % Neutrophils # (Auto) 6.5 1.8-7.7 K/uL Lymphocytes # (Auto) 0.6 L 1.0-4.8 K/uL Monocytes # (Auto) 0.6 0.1-1.0 K/uL Eosinophils # (Auto) 0.00 0.00-0.70 K/uL Basophils # (Auto) 0.01 0.00-0.20 K/uL Absolute Immature Granulocyte (auto 0.05 0-1 K/uL Nucleated Red Blood Cells 0.0 0.0-0.19 % Chemistry Labs: Test 11/27/24 06:38 11/26/24 13:27 Range/Units Sodium Level 146 H 136-145 mmol/L Potassium Level 3.8 3.5-5.1 mmol/L Chloride Level 106 101-111 mmol/L Carbon Dioxide Level 30 21-32 mmol/L Blood Urea Nitrogen 65 H 7-18 mg/dL Creatinine 2.4 H 0.5-1.3 mg/dL Glomerular Filtration Rate Calc 26 >90 mL/min Random Glucose 116 H 70-105 mg/dL Total Calcium 8.3 L 8.5-10.1 mg/dL Whole Blood Glucose 111 H 70-110 MG/DL ASSESSMENT: Hypernatremia Acute on chronic renal failure Pneumonia Coronary artery disease Sepsis Fall Bilateral Nasal bone fractures Soft tissue emphysema Depression Frailty PLAN: Labs, diagnostic, radiologic exams reviewed and interpreted by myself and supervising physician. We have reviewed external records in detail Obtain UA, urine electrolytes, urine creatinine, urine osmolality and complete renal ultrasound Require close monitoring of renal function and electrolytes Order CBC, CMP, uric acid, TSH and electrolytes in am Renal diabetic diet BiPAP as necessary, for respiratory distress Monitor blood pressure adjust medication doses as needed Avoid hypotensive episodes May use Dilaudid 0.5 mg IV every 6 hours as needed for severe pain Monitor blood sugars Strict intake, output, and daily weight should be monitored Please renally adjust medications Avoid nephrotoxic and nonsteroidal drugs Avoid contrast if possible Will continue to monitor renal function, anemia, electrolytes Treatment plan discussed with patient Questions were answered We have discussed with the other team physicians in detail about the care plan We will continue to monitor the patient closely Thank you for allowing us to participate in the care of this patient ATTESTATION BY PHYSICIAN I have seen and examined the patient. I reviewed the documentation, medical decision making, and treatment plan as noted by the mid-level provider above. I agree with the findings and plan of care. Patient has complicated medical problems total time spent was 75 minutes ESTER GARAY MD, [facility] Nov 27, 2024 14:23 ESTER GARAY MD Nov 27, 2024 22:31
[2024-11-27 14:52] LABS: ABG BASE EXCESS -0.7 mmol/L (-2.0-3.0); ABG HCO3 22.8 mmol/L (21.0-28.0); ABG OXYGEN SATURATION 91.7 % (94.0-98.0); ABG PCO2 34 mmHg (35-48); ABG PH 7.444 (7.350-7.450); CARBON MONOXIDE 0.3 % (0.5-1.5); DEVICE COMMENT RN AMY RR; HHb 8.2; PO2, ARTERIAL BG 67.5 mmHg (83.0-108.0); VENT MODE, BG NRB (ROOM AIR)
--- NOTE | 2024-11-27 15:00 | NUR ---
NURSE NOTE DR. THOMPSON AWARE OF PT'S POOR INTAKE AND REFUSING HONEY THICK LIQUIDS. PER PHYSICIAN HE WILL LOOK OVER CHART AND WILL FOLLOW UP AND ENTER ORDERS NEEDED.
[2024-11-27] MEDS: furoSEMIDE 40MG VIAL IV ONE (15:30)
[2024-11-27] MEDS: Solu-medROL 125MG VIAL IVP ONE (15:53)
--- NOTE | 2024-11-27 16:08 | NUR ---
Notes: Met with pt. Pt was asleep, and no one was in room. Spoke to nursing during visit. Nursing reports poor appetite, 0% PO intake due to liquid thickening, reports last meal on 11/21/2024, NFKA, difficulty swallowing, and is considering alternate nutrition plan either TPN or EN if PO intake remains at 0%, to use standing wt. noted. Question weight accuracy per 21 kg wt. loss in [address] recommendations for EN Below: Start full strength Jevity 1.5 @ 20 ml/hr. for the first 24 hours increase rate as tolerated by 5 ml every 4 hours to a GOAL rate of @55 ml/hr. 1,320 ml/day. + 130 H2o flushes Q4. Goal rate will provide 1980 kcals, 84 gm of protein, 1783 ml of fluid. Mets kcal, protein, and fluid needs. RD recommendation of PPN Below: When medically feasible and cleared by MD, consider Clinimix 5/15 via peripheral line at a rate of 83.3 ml/hr Include 10 ml adult MVI and 3ml trace elements Goal rate provides 100 gm of protein, 300 gm of dextrose 1420 kcals. Mets protein needs. 3 x weekly lipid emulsion to prevent essential fatty acid deficiency GIR 2.93 mg/kg/min Pt high risk of refeeding syndrome per 0% PO intake for 7 days. 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
--- NOTE | 2024-11-27 17:11 | HMCIMG ---
PORTABLE CHEST RADIOGRAPH INDICATION: hypoxic resp failure COMPARISON: 11/24/2024 FINDINGS: automobile service station attendant leads overlie the field of view. Median sternotomy wires are in appropriate alignment. Heart size is normal. Mild calcific plaque is present along the aortic arch and thoracic aortic mckeon. The pulmonary vascularity and camille appear normal. Extensive bilateral lower lung opacities. No significant pleural effusion noted. No pneumothorax detected. IMPRESSION: Extensive bilateral lower lung pneumonia. Follow-up chest radiograph is advised in order to ensure resolution.
--- NOTE | 2024-11-27 17:42 | PN ---
[facility] PROGRESS NOTE Date of Service: Nov 27, 2024 Time of Service: 17:30 SUBJECTIVE: Mr. Orozco is a 84-year-old male that was seen and examined today on 11/24/2024. Patient is a good historian of personal health Patient states that he came to emergency department with a chief complaint of weakness. Onset was 11/23/2024. Location is to bilateral lower extremities. Duration is constant. Character is described as, my legs are too weak to walk very far. There was no alleviating factors. Symptoms are aggravated with physical activity. Patient reports two associated falls tonight once at midnight and 1:23 a.m.. Today in the emergency department WBCs 12.5, left shift neutrophils 81.1%, creatinine 1.8, chest x-ray is pending radiology interpretation however my initial impression is that there was a left lower lobe infiltrate. Additionally patient arrived with a temperature of 100.8, heart rate 106 and suspected source of infection being lungs patient met clinical sepsis criteria 11/25/24 patient was seen and examined case discussed with the RN. He is still slightly short of breath. Occasional cough. No fever or chills 11/26/2024 patient was seen in room 321. Patient is alert, awake and oriented to time place person. Patient's labs show WBC came down to 9.1 from 12.5, hemoglobin 11.3 and chemistries show sodium 132, potassium 3.9 and creatinine 1.3, BUN 34. Patient is hemodynamically stable with temperature 97.3, pulse 77, respiratory rate 21, blood pressure 126/75. Patient is currently requiring 9 L O2 high-flow nasal cannula and is saturating at 91%, pulmonology has been consulted for the case to evaluate further. Patient did not have oxygen requirement at home, and chest x-ray showed bilateral pulmonary infiltrates. Patient followed closely. 11/27/2024 - patient has hard time breathing and is saturating at 86-90% on 111 SpO2 on non-rebreather mask . Pulmonology started steroids and the patient and patient is getting transferred to ICU. Patient's white blood count came down to 7.7 And hemoglobin 12.4. Patient's ABG shows pH of 7.44, pCO2 34 and bicarb of 30 . Patient's creatinine elevated to 2.4 And nephrology has been consulted on the case, we will follow Nephrology recommendations. plan to transfer to [facility] once the condition improves, Patient will be monitored closely REVIEW OF SYSTEMS CONSTITUTIONAL: Denies fevers, chills, or night sweats. No unintentional weight loss reported. NEUROLOGICAL: Denies headache, amaurosis fugax, motor weakness, sensory deficit, vertigo/spinning sensation, gait abnormalities, or tremors. ENT: No hearing loss, otalgia, otorrhea, rhinitis, rhinorrhea, hoarseness, or sore throat. CARDIOVASCULAR: Denies any exertional angina, dyspnea on exertion, orthopnea, paroxysmal nocturnal dyspnea, palpitations, life-threatening arrhythmias, claudication. PULMONARY: Denies any shortness of breath, cough, phlegm/sputum, hemoptysis, pleuritic chest pain. SLEEP: Denies morning headaches, daytime somnolence or napping. Denies difficulty falling asleep, staying asleep, waking from sleep. Denies knowledge of snoring. GASTROINTESTINAL: Denies any type of dysphagia to either liquids or solids. Denies nausea, vomiting, pyrosis, early satiety, abdominal pain, diarrhea, constipation, or changes in stool consistency or caliber. Denies coffee-ground emesis, hematemesis, hematochezia, or melanotic stools. GENITOURINARY: Denies frequency, urgency, nocturia, hematuria or incontinence (Storage/Irritative symptoms.) Low urinary stream, straining to void, urinary intermittency or hesitancy, splitting of the voiding stream, terminal dribbling. ENDOCRINOLOGIC: Denies polyuria, polydipsia, polyphagia or heat/cold intolerances. HEMATOLOGIC: Denies thrombophilia/previous clots, or coagulopathy/bleeding disorders. ONCOLOGIC: Denies personal history of malignancy. DERMATOLOGIC: Denies rashes or pruritus. PSYCHIATRIC: Denies any suicidal or homicidal ideation. Denies hallucinations. PHYSICAL EXAM GENERAL APPEARANCE: The patient is awake, alert, and oriented, in no acute cardiopulmonary distress. NEUROLOGICAL: Cranial nerves II-XII grossly intact. Motor is 5/5 in bilateral upper and lower extremities proximal to distal. No sensory deficits. HEENT: Face is symmetric. Pupils are equal and reactive. Extraocular movements are intact. NECK: Supple. No JVD. No thyromegaly. No submental, submandibular, pre- /postauricular, occipital or supraclavicular lymphadenopathy. CHEST: Normal chest expansion. No Telemetry. LUNGS: Absence of any rales, rhonchi or any wheezing. CARDIOVASCULAR: Regular. S1 and S2 normal. No appreciable rubs, murmurs or gallops. ABDOMEN: Soft, nontender, and nondistended. There is no rebound, voluntary guarding, or rigidity. : Deferred. No Joshua. EXTREMITIES: Non-edematous and not cyanotic. No clubbing. Good capillary ref ill. SKIN: No skin breakdown. Vital Signs (last 8hr) Date Time Temp Pulse Resp B/P (MAP) Pulse Ox O2 Delivery O2 Flow Rate FiO2 11/27/24 16:00 107 94/52 91 Nonrebreathing Mask 15.0 11/27/24 12:00 99.7 108 22 148/92 92 Nonrebreathing Mask 15.0 11/27/24 10:51 110 24 LABS: Laboratory: Test 11/27/24 14:51 11/27/24 08:15 11/27/24 06:38 11/26/24 13:27 Range/Units Blood Gas Specimen Type Arterial Arterial Blood pH 7.444 7.350-7.450 Arterial Blood Partial Pressure CO2 34 L 35-48 mmHg Arterial Blood Partial Pressure O2 67.5 L 83.0-108.0 mmHg Arterial Blood HCO3 22.8 21.0-28.0 mmol/L Arterial Blood Oxygen Saturation 91.7 L 94.0-98.0 % Arterial Blood Base Excess -0.7 -2.0-3.0 mmol/L Hemoglobin (Blood Gas) 13.4 L 13.5-17.5 g/dL Sodium (Blood Gas) 143 136-145 MMOL/L Bedside Potassium (Blood Gas) 3.9 3.4-4.5 MMOL/L Bedside Chloride (Blood Gas) 106 98-107 MMOL/L Bedside Glucose (Blood Gas) 99 H 65-95 MG/DL Bedside Ionized Calcium (Blood Gas) 1.09 L 1.15-1.33 MMOL/L Bedside Lactic Acid (Blood Gas) 1.35 H 0.36-0.75 MMOL/L Blood Gas Temperature 37.0 35.5-37.0 CELSIUS Blood Gas Flow-by 15.00 0.00-15.00 L/min Blood Gas Vent Mode NRB ROOM AIR FiO2 100.0 % Blood Gas Specimen Comment RN JEANNINE RR Urine Color LIGHT-YELLOW YELLOW Urine Appearance CLOUDY H CLEAR Urine pH 5.0 5.0-8.0 Urine Specific [place] 1.014 1.001-1.031 Urine Protein 10 H NEGATIVE mg/dL Urine Glucose (UA) NEGATIVE NEGATIVE mg/dL Urine Ketones NEGATIVE NEGATIVE mg/dL Urine Occult Blood NEGATIVE NEGATIVE Urine Nitrate NEGATIVE NEGATIVE Urine Bilirubin NEGATIVE NEGATIVE mg/dL Urine Urobilinogen 0.2 0.2-1.0 mg/dL Urine Leukocyte Esterase NEGATIVE NEGATIVE Lay/uL Urine RBC 0-1 0-1 /HPF Urine WBC 2-5 H 0-1 /HPF Urine Squamous Epithelial Cells RARE 0-2 /HPF Urine Bacteria RARE None Seen /HPF Urine Hyaline Casts 6-10 H 0-1 /LPF /LPF Urine Other Casts 6 None Seen /LPF Urine Random Sodium 23 L 40-220 mmol/l Urine Random Potassium 55 25-125 mmol/L Urine Random Chloride 61 L 110-250 mmol/L White Blood Count 7.7 4.8-10.8 K/uL Red Blood Count 4.24 L 4.50-6.20 MIL/uL Hemoglobin 12.4 L 14.0-18.0 g/dL Hematocrit 38.7 L 42-54 % Mean Corpuscular Volume 91.3 79-99 fL Mean Corpuscular Hemoglobin 29.2 27.0-33.0 pg Mean Corpuscular Hemoglobin Concent 32.0 32.0-36.0 g/dL Red Cell Distribution Width 13.9 11.0-15.5 % Platelet Count 234 130-400 K/uL Mean Platelet Volume 10.0 7.5-10.5 fL Immature Granulocyte % (Auto) 0.7 0-1 % Neutrophils (%) (Auto) 84.3 H 40.0-77.0 % Lymphocytes (%) (Auto) 7.6 L 21.0-51.0 % Monocytes (%) (Auto) 7.3 3.0-13.0 % Eosinophils (%) (Auto) 0.0 0.0-8.0 % Basophils (%) (Auto) 0.1 0.0-5.0 % Neutrophils # (Auto) 6.5 1.8-7.7 K/uL Lymphocytes # (Auto) 0.6 L 1.0-4.8 K/uL Monocytes # (Auto) 0.6 0.1-1.0 K/uL Eosinophils # (Auto) 0.00 0.00-0.70 K/uL Basophils # (Auto) 0.01 0.00-0.20 K/uL Absolute Immature Granulocyte (auto 0.05 0-1 K/uL Nucleated Red Blood Cells 0.0 0.0-0.19 % Sodium Level 146 H 136-145 mmol/L Potassium Level 3.8 3.5-5.1 mmol/L Chloride Level 106 101-111 mmol/L Carbon Dioxide Level 30 21-32 mmol/L Blood Urea Nitrogen 65 H 7-18 mg/dL Creatinine 2.4 H 0.5-1.3 mg/dL Glomerular Filtration Rate Calc 26 >90 mL/min Random Glucose 116 H 70-105 mg/dL Total Calcium 8.3 L 8.5-10.1 mg/dL Whole Blood Glucose 111 H 70-110 MG/DL Current Medications Medications (Trade) Dose Ordered Sig/Renata Route PRN Reason Start Time Stop Time Status Last Admin Dose Admin Acetaminophen (TYLenol 325MG TAB) 650 mg Q6H PRN PO TEMPERATURE GREATER THAN 101.5 11/24/24 05:30 12/24/24 05:29 11/24/24 23:45 650 MG Albuterol (DUOneb) 1 UDVIAL [id number] IH 11/24/24 06:00 11/27/24 07:26 DC 11/27/24 06:54 1 UDVIAL Albuterol (DUOneb) 1 UDVIAL [id number] IH 11/24/24 18:00 12/24/24 17:59 11/27/24 10:51 1 UDVIAL Aspirin (Aspirin 81mg Chew Tab) 81 mg DAILY PO 11/24/24 09:00 12/24/24 08:59 11/27/24 08:18 81 MG Atorvastatin Calcium (LIPItor 40MG) 40 mg HS PO 11/24/24 21:00 12/24/24 20:59 11/26/24 20:56 40 MG Budesonide (Pulmicort 0.5 Mg/2ml) 0.5 mg BIDRESP IH 11/27/24 18:00 12/27/24 17:59 Bupropion HCl (WellBUTrin SR 150MG) 150 mg DAILY PO 11/24/24 09:00 12/24/24 08:59 11/27/24 08:18 150 MG Carvedilol (Coreg 3.125MG) 3.125 mg BID PO 11/27/24 09:00 12/27/24 08:59 Hold 11/27/24 08:18 3.125 MG Carvedilol (Coreg 6.25MG) 6.25 mg BID PO 11/24/24 09:00 11/27/24 07:23 DC 11/26/24 20:56 6.25 MG Furosemide (LASix 40MG VIAL) 40 mg AM IV 11/27/24 09:00 12/25/24 20:59 11/27/24 12:23 40 MG Furosemide (LASix 40MG VIAL) 40 mg BID IV 11/25/24 21:00 11/27/24 07:23 DC 11/26/24 20:57 40 MG Guaifenesin (RobiTUSSin SUGAR-FREE 100 MG/ 5 ML UDCUP) 400 mg Q4H PRN PO cough 11/24/24 05:30 12/24/24 05:29 11/24/24 09:28 400 MG Heparin Sodium (Porcine) (HEParin 5,000 UNIT VIAL) 5,000 unit BID SQ 11/24/24 09:00 12/24/24 08:59 11/27/24 08:19 5,000 UNIT Home Med (Home Medication) 1 each DAILY PO 11/24/24 09:00 12/24/24 08:59 Home Med (Home Medication) Mv-Mn/Iron/FA/ Herbal Cmplx#190 (Vitamin... DAILY PO 11/24/24 09:00 12/24/24 08:59 Hydralazine HCl (APRESOLine 20MG INJ) 10 mg Q6H PRN IV For:SBP above 160;DBP above 90 11/24/24 05:30 12/24/24 05:29 Lactated Ringer's 1,000 ml @ 100 mls/hr Q10H IV 11/24/24 05:30 11/25/24 09:35 DC 11/25/24 03:57 100 MLS/HR Levofloxacin/ Dextrose (LEvaquIN 750 MG/ D5W 150 ML) 750 mg Q48H IV 11/24/24 05:30 12/04/24 05:29 11/26/24 05:01 750 MG Lisinopril (Prinivil 5mg) 5 mg DAILY PO 11/26/24 09:00 11/27/24 07:23 DC 11/26/24 08:53 5 MG Magnesium Sulfate 50 ml @ 0 mls/hr PROTOCOL PRN IV MAGNESIUM PROTOCOL 11/25/24 12:00 12/25/24 11:59 11/25/24 13:19 25 MLS/HR Methylprednisolone Sodium Succinate (Solu-medROL 40MG) 40 mg BID IVP 11/27/24 21:00 12/27/24 20:59 Montelukast Sodium (SinguLAIR) 10 mg HS PO 11/24/24 21:00 12/24/24 20:59 11/26/24 20:56 10 MG Morphine Sulfate (morPHINE 2MG SYG) 2 mg Q4H PRN IVP SEVERE PAIN (7-10) 11/24/24 06:00 11/27/24 16:18 DC 11/24/24 07:56 2 MG Olanzapine (ZyPREXA 5 mg tab) 2.5 mg HS PO 11/24/24 21:00 12/24/24 20:59 11/26/24 20:56 2.5 MG Ondansetron HCl (zoFRAN 4MG INJ) 4 mg Q6H PRN IV NAUSEA/VOMITING 11/24/24 05:30 12/24/24 05:29 Pantoprazole Sodium (PROTonix 40MG TAB) 40 mg DAILY PO 11/24/24 09:00 12/24/24 08:59 11/27/24 08:18 40 MG Potassium Chloride (K-Dur/Klor-Con 20meq) 20 meq AD PRN PO POTASSIUM PROTOCOL 11/25/24 10:30 12/25/24 10:29 Potassium Chloride (KCl 10% Elixir 20meq/15ml) 20 meq AD PRN PO POTASSIUM PROTOCOL 11/25/24 10:30 12/25/24 10:29 Thiamine HCl (Vitamin B-1) 100 mg DAILY IVP 11/28/24 09:00 11/30/24 09:01 Vitamin B Complex/ Vit C/Folic Acid (Nephrovite Tablet) 1 cap DAILY PO 11/28/24 09:00 12/28/24 08:59 DIAGNOSTICS / RADIOLOGY: PATIENT: CHRISTOS OROZCO MR#: [id number] : 1940 SEX: M AGE: 84 LOCATION: 3D ORDER 0723 STATUS: ADM IN REPORT#: [id number] SERVICE 0714 REASON: BRENDA ORDERING PHYSICIAN: Maurice LONGORIA II, MD PROCEDURE: ART IN OUT - US ART IN & VEIN OUT RENAL ARTERY ULTRASOUND. COMPARISON: None available. FINDINGS: There is no significant aortic plaque, and the peak systolic velocity in the aorta is normal before and after the renal artery takeoff bilaterally. The highest peak systolic velocity of the renal arteries is normal bilaterally. Bilateral RAR's are within normal limits. IMPRESSION: No evidence of renal artery stenosis. DICTATED BY: KAREN HEATH MD DATE: 11/27/241243 ELECTRONICALLY SIGNED BY: KAREN HEATH MD DATE: 11/27/241246 PATIENT: CHRISTOS OROZCO MR#: [id number] : 1940 SEX: M AGE: 84 LOCATION: [facility] [place] ORDER 1615 STATUS: ADM IN REPORT#: [id number] SERVICE 1614 REASON: hypoxic resp failure ORDERING PHYSICIAN: CRISS REYEZ PROCEDURE: CXR1VW - CHEST 1VW PORTABLE CHEST RADIOGRAPH INDICATION: hypoxic resp failure COMPARISON: 11/24/2024 FINDINGS: media monitor leads overlie the field of view. Median sternotomy wires are in appropriate alignment. Heart size is normal. Mild calcific plaque is present along the aortic arch and thoracic aortic mckeon. The pulmonary vascularity and camille appear normal. Extensive bilateral lower lung opacities. No significant pleural effusion noted. No pneumothorax detected. IMPRESSION: Extensive bilateral lower lung pneumonia. Follow-up chest radiograph is advised in order to ensure resolution. DICTATED BY: ERIN ANDERSON MD DATE: 11/27/241707 ELECTRONICALLY SIGNED BY: ERIN ANDERSON MD DATE: 11/27/241710 ASSESSMENT: Pneumonia POA History of coronary artery disease CABG x3 CKD stage 3 POA Sepsis POA Fall POA Bilateral Nasal bone fractures POA Soft tissue emphysema POA Depression POA Frailty POA Hyponatremia POA Acute hypoxic respiratory failure PLAN: Continue the current medication regimen Monitor a.m. labs Consult pulmonology Follow cardiology recommendations Continue inhalers, nebulizers as needed Try to wean off oxygen as tolerated DVT prophylaxis with heparin and GI prophylaxis with pantoprazole Continue Solu-Medrol Continue Lasix Continue home medications Continue Levaquin Follow nephrology recommendations ATTESTATION BY PHYSICIAN I have seen and examined the patient. I reviewed the documentation, medical decision making, and treatment plan as noted by the resident provider above. I a gree with the findings and plan of care. Missael Garland MD, KEERTI K MD Nov 27, 2024 17:42
[2024-11-27] MEDS: BUDESONIDE 0.5 MG/2 ML INH IH SCH (18:50)
--- NOTE | 2024-11-27 22:30 | NUR ---
PT AWAKE, ALERT AND ORIENTED X 1. PT AWARE IN [place], BUT DOES NOT KNOW LOCATION OR FACILITY, STATES YEAR . RE-ORIENTED PT TO PLACE AND DATE. PT STATES NOT WANTING ANY MEDICATIONS, NO INTUBATION IF NEEDED OR CPR, AND WANTS TO BE LEFT ALONE. EDUCATED PT ON IMPORTANCE OF TREATMENT AND MADE AWARE SPOUSE WILL BE NOTIFIED OF WISHES. CALL PLACED TO SPOUSE TO MAKE AWARE OF PT'S WISHES. SPOUSE UNABLE TO GIVE A CLEAR DECISION REGARDING PT'S WISHES; STATED DAUGHTER IS "FLYING" IN TO SEE PT AND WANTS PT TO "STAY ALIVE" UNTIL THEN
[2024-11-27] MEDS: Solu-medROL 40MG VIAL IVP SCH (22:59)
--- NOTE | 2024-11-27 23:00 | NUR ---
PT AGREED TO HAVE SQ HEPARIN AND IV SOLU-MEDROL ADMINISTERED
--- NOTE | 2024-11-27 23:15 | CONS ---
[facility] CONSULTATION NOTE Date Patient Seen: Nov 27, 2024 Time of Visit: 22:52 Supervising Physician: Charan Gee MD Reason for Consultation: SOB Primary Care Physician: Self referral Outpatient Specialists: [ Inpatient Consults: DR Farrar, Dr Figueredo, Dr James Atkins PROBLEM LIST: Acute Hypoxemic resp failure Suspected COPD exacerbation Acute on chronic CHF POA Staphylococcus aureus + Samanta albicans bilateral Pneumonia POA History of coronary artery disease CABG x3 CKD stage 3 POA Sepsis POA Fall POA Bilateral Nasal bone fractures POA Soft tissue emphysema POA Depression POA Frailty POA Hyponatremia POA Acute hypoxic respiratory failure HPI: This is a 84 year old male with a past medical history of CAD s/p CABG,PCI with stent placement, 60 Pack year former smoker, and HTN who presented to the ED for evaluation of GBW onset 11/23/24. Patient also reported multiple falls the night prior to arrival. On arrival to ED patient has a temperature of 100.8 heart rate of 106 with a source of suspected infection of pneumoniae. White count was 12.5 left shift neutrophils 81.1% creatinine of 1.8 chest x-ray in ED showed left lower lobe infiltrate. Pt was found to have an abrassion to nose and CT maxillofacial without contrast showed mildly depressed fracture of the frontal nasal bones with left more than right. There is a soft tissue swelling with soft tissue emphysema. Chest x-ray with mild bilateral pulmonary infiltrates seen may be related to mild pulmonary vascular congestion with possible superimposed pneumonitis. Shoulder x-ray of right side showed no acute displaced fracture or dislocation degenerative changes seen. Renal artery ultrasound showed no evidence of renal artery stenosis. Pt was admitted to medical surgical and was started on levaquin IV. Today we were consulted for increased SOB. On assessment of patient he had non-rebreather at 100% FiO2 saturating 91-92%. Mild respiratory distress. Unable to start Cpap due to nasal fract. ures. Started pt on prednisone 125 mg x 1 dose then 40 mg IV push b.i.d. due to suspected COPD exacerbation in the presence of pneumoniae. Patient also seems to have elevated BNP of 1250 administered 2nd dose of Lasix 40 mg IV push x1. He is currently on Lasix 40 mg IV daily. White count seems to have improved today 7.7, neutrophils 84.3 trending down H&H stable. Sodium 146 carbon dioxide 30 BUN of 65 creatinine of 2.4 and GFR of 26, worsening BRENDA. glucose 116 mg/dL. We will transfer pt to PCCU for now due to high risk of resp decompensation. PAST MEDICAL HX: see above PAST SURGICAL HX: noncontributory SOCIAL HISTORY: No tobacco, ETOH, or illicit drug use Coded Allergies: Penicillins (Unverified Allergy, Unknown, 09/07/23) REVIEW OF SYSTEMS: 12 point ROS reviewed with patient. Pertinent positives mentioned above. Otherw ise negative. PHYSICAL EXAM: GENERAL: Awake alert and oriented x3, cachectic HEENT: EOMI, Sclera non icteric, moist mucosa NECK: Supple, no JVD, trachea midline LUNGS: Diminished breath sounds bilaterally. No wheezes HEART: Regular rate and rhythm. Normal S1 and S2, without murmurs ABD: Abdomen soft, nontender. Bowel sounds present EXT: No clubbing cyanosis or edema NEURO: Alert and oriented to person, follows commands Vital Signs (last 8hr) Date Time Temp Pulse Resp B/P (MAP) Pulse Ox O2 Delivery O2 Flow Rate FiO2 11/27/24 21:22 60 36 110/43 91 Nonrebreathing Mask 11/27/24 20:00 97.7 105 22 109/54 89 Nonrebreathing Mask 15.0 11/27/24 19:00 74 28 Non Rebreather 15.0 100 11/27/24 18:50 75 28 11/27/24 16:00 107 94/52 91 Nonrebreathing Mask 15.0 LABS: Hematology Labs: Test 11/27/24 06:38 Range/Units White Blood Count 7.7 4.8-10.8 K/uL Red Blood Count 4.24 L 4.50-6.20 MIL/uL Hemoglobin 12.4 L 14.0-18.0 g/dL Hematocrit 38.7 L 42-54 % Mean Corpuscular Volume 91.3 79-99 fL Mean Corpuscular Hemoglobin 29.2 27.0-33.0 pg Mean Corpuscular Hemoglobin Concent 32.0 32.0-36.0 g/dL Red Cell Distribution Width 13.9 11.0-15.5 % Platelet Count 234 130-400 K/uL Mean Platelet Volume 10.0 7.5-10.5 fL Immature Granulocyte % (Auto) 0.7 0-1 % Neutrophils (%) (Auto) 84.3 H 40.0-77.0 % Lymphocytes (%) (Auto) 7.6 L 21.0-51.0 % Monocytes (%) (Auto) 7.3 3.0-13.0 % Eosinophils (%) (Auto) 0.0 0.0-8.0 % Basophils (%) (Auto) 0.1 0.0-5.0 % Neutrophils # (Auto) 6.5 1.8-7.7 K/uL Lymphocytes # (Auto) 0.6 L 1.0-4.8 K/uL Monocytes # (Auto) 0.6 0.1-1.0 K/uL Eosinophils # (Auto) 0.00 0.00-0.70 K/uL Basophils # (Auto) 0.01 0.00-0.20 K/uL Absolute Immature Granulocyte (auto 0.05 0-1 K/uL Nucleated Red Blood Cells 0.0 0.0-0.19 % Chemistry Labs: Test 11/27/24 06:38 11/26/24 13:27 Range/Units Sodium Level 146 H 136-145 mmol/L Potassium Level 3.8 3.5-5.1 mmol/L Chloride Level 106 101-111 mmol/L Carbon Dioxide Level 30 21-32 mmol/L Blood Urea Nitrogen 65 H 7-18 mg/dL Creatinine 2.4 H 0.5-1.3 mg/dL Glomerular Filtration Rate Calc 26 >90 mL/min Random Glucose 116 H 70-105 mg/dL Total Calcium 8.3 L 8.5-10.1 mg/dL Whole Blood Glucose 111 H 70-110 MG/DL DIAGNOSTICS / RADIOLOGY RESULTS: [ ] IMAGING REPORT Signed PATIENT: CHRISTOS OROZCO MR#: [id number] : 1940 SEX: M AGE: 84 LOCATION: [facility] ORDER 14 STATUS: ADM IN REPORT#: [id number] SERVICE 1614 REASON: hypoxic resp failure ORDERING PHYSICIAN: CRISS REYEZ PROCEDURE: CXR1VW - CHEST 1VW PORTABLE CHEST RADIOGRAPH INDICATION: hypoxic resp failure COMPARISON: 11/24/2024 FINDINGS: conveyor monitor leads overlie the field of view. Median sternotomy wires are in appropriate alignment. Heart size is normal. Mild calcific plaque is present along the aortic arch and thoracic aortic mckeon. The pulmonary vascularity and camille appear normal. Extensive bilateral lower lung opacities. No significant pleural effusion noted. No pneumothorax detected. IMPRESSION: Extensive bilateral lower lung pneumonia. Follow-up chest radiograph is advised in order to ensure resolution. DICTATED BY: ERIN ANDERSON MD DATE: 11/27/241707 ELECTRONICALLY SIGNED BY: ERIN ANDERSON MD DATE: 11/27/24 171 PLAN Transfer to PCCU ABG Chest XR lasix 40mg ivp x1 now, continue with daily dose Solumedrol 125mg x1 IV then 40mg IVP BID 2D echo D-Dimer US BLE ABG in am consider intubation worsening resp failure avoid BIPAP/CPAP due to nasal fracture atrovent and pulmicort nebs NEURO: Minimize central acting medications as possible. Maintain fall precautions, adequate lighting during the day PULMONARY: Supplemental 02 as needed. Maintain aspiration precautions at all times CARDIOVASCULAR: Follow hemodynamics. Vital signs per facility protocol GI & NUTRITION: Continue with nutritional support. Continue stool softeners and laxatives as needed. KIDNEYS & ELECTROLYTES: Strict monitoring of intake, output and overall fluid balance. Avoid nephrotoxic medications to the extent possible. Medications to be dosed according to renal function. Monitor electrolytes and replace as needed ENDOCRINE: Maintain blood glucose between 100-180 at all times. Hypoglycemia protocol in place INFECTIOUS DISEASE: Trend temperature, WBC and procalcitonin level Follow cultures, deescalate antibiotics as soon as possible. Panculture if new onset fever ONCOLOGY/HEMATOLOGY/COAGULATION: Monitor for s/s of bleeding Monitor hemoglobin, coagulation studies as needed SKIN: Pressure ulcer prevention per facility protocol Specialty mattress ORTHO/REHAB: Continue PT/OT Prophylaxis: Continue GI and DVT prophylaxis Code Status: Full Resuscitation Disposition: TBD Other: Total patient care time exceeds 35 minutes excluding all procedures. CRISS REYEZ Nov 27, 2024 23:15
[2024-11-27 23:48] LABS: ABG BASE EXCESS 0.1 mmol/L (-2.0-3.0); ABG HCO3 24.2 mmol/L (21.0-28.0); ABG PCO2 38 mmHg (35-48); ABG PH 7.423 (7.350-7.450); PO2, ARTERIAL BG 56.2 mmHg (83.0-108.0); VENT MODE, BG NRB (ROOM AIR)
[2024-11-28] VITALS (72 sets, daily range): BP systolic 80–175; BP diastolic 40–106; PULSE 75–113; RESP 10–34; TEMP 98–99; O2SAT 91–100
--- NOTE | 2024-11-28 01:00 | NUR ---
REGARDING ABG RESULTS, RT SWITCHED NON-REBREATHER MASK TO HI FLOW OXYGEN. NO RESPIRATORY DISTRESS AT THIS TIME, O2 SATS 90-92%. POSITIONED FOR COMFORT. TELEMETRY MONITORING, CALL LIGHT WITHIN REACH.
[2024-11-28 04:10] LABS: COVID19 (SARS ANTIGEN RAPID) PRESUMPTIVE NEGATIVE (NEGATIVE); INFLUENZA TYPE B Negative For Type B (NEGATIVE)
[2024-11-28 04:14] LABS: INFLUENZA TYPE A Positive For Type A (NEGATIVE)
[2024-11-28 04:43] LABS: BASOPHILS # (AUTO) 0.01 K/uL (0.00-0.20); BASOPHILS % (AUTO) 0.2 % (0.0-5.0); HEMATOCRIT 38.4 % (42-54); IMMATURE GRANULOCYTE ABSOLUTE 0.07 K/uL (0-1); LYMPHOCYTES # (AUTO) 0.6 K/uL (1.0-4.8); LYMPHOCYTES % (AUTO) 10.2 % (21.0-51.0); MEAN CORPUSCULAR HEMOGLOBIN 29.8 pg (27.0-33.0); MEAN CORPUSCULAR HGB CONC 33.1 g/dL (32.0-36.0); MEAN CORPUSCULAR VOLUME 90.1 fL (79-99); MONOCYTES # (AUTO) 0.4 K/uL (0.1-1.0); MONOCYTES % (AUTO) 6.1 % (3.0-13.0); NEUTROPHILS # (AUTO) 5.2 K/uL (1.8-7.7); NEUTROPHILS % (AUTO) 82.4 % (40.0-77.0); PLATELET COUNT (AUTO) 227 K/uL (130-400); RED BLOOD CELL COUNT(AUTO) 4.26 MIL/uL (4.50-6.20); WHITE BLOOD COUNT (AUTO) 6.3 K/uL (4.8-10.8)
[2024-11-28 04:45] LABS: ABG HCO3 24.4 mmol/L (21.0-28.0); ABG OXYGEN SATURATION 93.6 % (94.0-98.0); ABG PCO2 39 mmHg (35-48); ABG PH 7.415 (7.350-7.450); PO2, ARTERIAL BG 66.9 mmHg (83.0-108.0)
[2024-11-28 04:56] LABS: CREATININE 3.8 mg/dL (0.5-1.3); PHOSPHORUS 6.4 mg/dL (2.5-4.9); URIC ACID 17.1 mg/dL (2.6-7.2)
--- NOTE | 2024-11-28 05:15 | NUR ---
ELLEN [employer]GHES [employer]INE[employer] MADE AWARE OF ELEVATED BUN/CREA, ORDERS RECEIVED.
--- NOTE | 2024-11-28 05:20 | NUR ---
CALL PLACED TO PHARMACIST AND MADE AWARE OF ABNORMAL BUN/CREA AND GFR, STATES WILL ADJUST LEVAQUIN DOSE
--- NOTE | 2024-11-28 06:00 | NUR ---
PT IN BED, CALM, O2 PER NON-REBREATHER, HIGH FLOW. O2 SAT 92-93s%, NO LABORED RESPIRATIONS. TOTAL CARE WITH ADLS, TURNED Q 2 HOURS AND NEEDED. CALL LIGHT WITHIN REACH, TELEMETRY MONITORING
[2024-11-28] MEDS: Vitamin B Complex/Vit C/Folic Acid PO SCH (07:38)
[2024-11-28] MEDS: OSELTAMIVIR PHOSPHATE 75 MG CAP PO SCH (07:39)
--- NOTE | 2024-11-28 08:25 | PN ---
[facility] PROGRESS NOTE Date Patient Seen: Nov 28, 2024 Time of Visit: 08:19 Problem List: * Syncope versus presyncope with head trauma, likely due to postural hypotension. * Pneumonia on admission, influenza and bacterial sources * Acute Hypoxemic Respiratory Failure secondary to above * Known history of coronary artery disease with remote coronary artery bypass graft surgery x 3 in [place] in 2024. * History of multiple stent implants in [place], questionable date; however, remote, question number or location of stents. * EF of 50-55% with no significant valvular pathology by echocardiography on 11/21/2024. * History of heavy tobacco use, stopped in 2004, likely COPD underlying pulmonary disease. * Chronic kidney disease, stage 3 with superimposed acute kidney failure. * Sepsis. * Frail, debilitated octogenarian. Interval History: Pt was transferred to ICU overnight, requiring more oxygen supplement, now at 50% on HFNC. He has developed a fever overnight and has positive sputum cultures that reveal pansensitive staph. Pt is now being followed by pulmonary, steroids were initiated for COPD exacerbation. He is confused, NPO for now. Pt denies any chest pain, looks to have increased work of breathing on evaluation. CXR with bilateral pneumonia noted. BP holding, no pressors and pt intermit tently tachy with fever. Physical Examination: GENERAL: Mild respiratory distres HEAD: [Normal with no signs of head trauma.] EYES: [PERRLA, EOMI, conjunctiva and sclera normal.] ENT: [Hearing grossly intact, normal oropharynx.] NECK: [Supple without JVD. There is no tenderness, lymphadenopathy, or masses. No thyromegaly. Normal carotid upstrokes without bruits.] LUNGS: here are bilateral basilar rales one third of the way up the chest. No wheezes, or rhonchi.] HEART: Regular rate and rhythm. Normal S1 and S2 without murmurs, gallop or rub.] VASC: [Peripheral pulses +2 bilaterally.] ABD: [Bowel sounds normal, soft, nontender, no masses, no organomegaly. No audible bruits.] : [Not examined] LYMPH: [No lymphadenopathy noted.] EXT: [No clubbing, cyanosis or edema.] SKIN: [No rashes or lesions noted.] NEURO: [Awake, alert, and oriented x1-2. Laboratory: [ ] Hematology Labs: Test 11/28/24 03:41 Range/Units White Blood Count 6.3 4.8-10.8 K/uL Red Blood Count 4.26 L 4.50-6.20 MIL/uL Hemoglobin 12.7 L 14.0-18.0 g/dL Hematocrit 38.4 L 42-54 % Mean Corpuscular Volume 90.1 79-99 fL Mean Corpuscular Hemoglobin 29.8 27.0-33.0 pg Mean Corpuscular Hemoglobin Concent 33.1 32.0-36.0 g/dL Red Cell Distribution Width 14.0 11.0-15.5 % Platelet Count 227 130-400 K/uL Mean Platelet Volume 10.6 H 7.5-10.5 fL Immature Granulocyte % (Auto) 1.1 H 0-1 % Neutrophils (%) (Auto) 82.4 H 40.0-77.0 % Lymphocytes (%) (Auto) 10.2 L 21.0-51.0 % Monocytes (%) (Auto) 6.1 3.0-13.0 % Eosinophils (%) (Auto) 0.0 0.0-8.0 % Basophils (%) (Auto) 0.2 0.0-5.0 % Neutrophils # (Auto) 5.2 1.8-7.7 K/uL Lymphocytes # (Auto) 0.6 L 1.0-4.8 K/uL Monocytes # (Auto) 0.4 0.1-1.0 K/uL Eosinophils # (Auto) 0.00 0.00-0.70 K/uL Basophils # (Auto) 0.01 0.00-0.20 K/uL Absolute Immature Granulocyte (auto 0.07 0-1 K/uL Nucleated Red Blood Cells 0.0 0.0-0.19 % Chemistry Labs: Test 11/28/24 03:41 11/26/24 13:27 Range/Units Sodium Level 149 H 136-145 mmol/L Potassium Level 4.0 3.5-5.1 mmol/L Chloride Level 110 101-111 mmol/L Carbon Dioxide Level 26 21-32 mmol/L Blood Urea Nitrogen 105 #*H 7-18 mg/dL Creatinine 3.8 H 0.5-1.3 mg/dL Glomerular Filtration Rate Calc 15 >90 mL/min Random Glucose 149 H 70-105 mg/dL Uric Acid 17.1 H 2.6-7.2 mg/dL Total Calcium 8.6 8.5-10.1 mg/dL Phosphorus Level 6.4 H 2.5-4.9 mg/dL Magnesium Level 3.00 H 1.80-2.40 mg/dL Whole Blood Glucose 111 H 70-110 MG/DL Coagulation Labs: Test 11/28/24 03:41 Range/Units D-Dimer Quantitative (PE/DVT) 2694 *H 0-500 ng/mL Diagnostics / Radiology: CXR with bilateral infiltrates Impression and Plan: Pt will continue with supportive care, Pt has overall poor prognosis. Primary issue is sepsis with pneumonia secondary to influenza and staph. Pt is hypoxic and with multisystem organ dysfunction, High risk for decompensation and . [facility] Nov 28, 2024 08:25
--- NOTE | 2024-11-28 08:27 | HMCIMG ---
Exam Type: US VENOUS DOPPLER BILATERAL Clinical Information: rule out DVT Comparison: None Findings: The examination shows normal deep venous system. There is normal compressibility at all levels. There is no intraluminal clot. There is no occlusion. Adequate response is obtained on augmentation. Impression: No evidence of DVT.
--- NOTE | 2024-11-28 08:54 | PN ---
[facility] PROGRESS NOTE Date Patient Seen: Nov 28, 2024 Time of Visit: 08:54 Supervising Physician: Jordan Hall MD Primary Care Physician: Self referral Outpatient Specialists: [ Inpatient Consults: DR Farrar, Dr Figueredo, Dr James Atkins PROBLEM LIST: Acute Hypoxemic resp failure requiring intubation 11/28/24 Suspected COPD exacerbation Acute on chronic CHF POA Staphylococcus aureus + Samanta albicans bilateral Pneumonia POA History of coronary artery disease CABG x3 CKD stage 3 POA Sepsis POA Fall POA Bilateral Nasal bone fractures POA Soft tissue emphysema POA Depression POA Frailty POA Hyponatremia POA Acute hypoxic respiratory failure INTERVAL HISTORY: Patient is awake, confused, tachypneic and tachycardic. Using moderate abdominal muscles with retractions noted. Continues hypoxemic on ABG. He is a poor candidate for CPAP or BiPAP due to nasal fractures. Complete face mask not readily available. Decision was made to intubate to protect airway and improve oxygenation. Morning ABGs showed PH of 7.41 pCO2 of 39 PO2 of 66.9 and bicarb 24.4. Patient is satting between 88 and 89% with non-rebreather at 100% and high-flow nasal cannula. On CBC H&H is 12.7/38.4 with a platelet count of 227 K. Neutrophils are 82.4 trending down. Patient has, positive for influenza type A Tamiflu has already been started. Otherwise per RN unable to give due to patient NPO due to high risk for aspiration and on high O2 requirement. Chemi stries sodium 149 BUN of 105 creatinine 3.8 with a GFR of 15 glucose 149 mg/dL uric acid of 17.1 triglycerides of 282 magnesium of three. Lactic acid of 1.9. We will proceed with intubation and start OG tube for tube feedings and medications as well as hydration. I have spoken to patient and his in both agreed to proceed with plan of care. REVIEW OF SYSTEMS: Unable to perform due to patient's encephalopathy. PHYSICAL EXAM: GENERAL: Awake alert but confused. HEENT: Sclera non icteric, moist mucosa NECK: Supple, no JVD, trachea midline LUNGS: Diminished breath sounds bilaterally. No wheezes HEART: Regular rate and rhythm. Normal S1 and S2, without murmurs ABD: Abdomen soft, nontender. Bowel sounds present EXT: No clubbing cyanosis or edema NEURO: Alert and oriented to person, follows commands Vital Signs (last 8hr) Date Time Temp Pulse Resp B/P (MAP) Pulse Ox O2 Delivery O2 Flow Rate FiO2 11/28/24 07:20 98.6 85 20 126/60 95 Nasal Cannula 11/28/24 06:59 85 26 HFNC Heated System N/Can 30.0 100 11/28/24 06:59 85 28 11/28/24 04:00 99.0 86 34 106/52 92 Nonrebreathing Mask 11/28/24 01:04 78 24 HFNC Heated System N/Can 30.0 100 LABS: Hematology Labs: Test 11/28/24 03:41 Range/Units White Blood Count 6.3 4.8-10.8 K/uL Red Blood Count 4.26 L 4.50-6.20 MIL/uL Hemoglobin 12.7 L 14.0-18.0 g/dL Hematocrit 38.4 L 42-54 % Mean Corpuscular Volume 90.1 79-99 fL Mean Corpuscular Hemoglobin 29.8 27.0-33.0 pg Mean Corpuscular Hemoglobin Concent 33.1 32.0-36.0 g/dL Red Cell Distribution Width 14.0 11.0-15.5 % Platelet Count 227 130-400 K/uL Mean Platelet Volume 10.6 H 7.5-10.5 fL Immature Granulocyte % (Auto) 1.1 H 0-1 % Neutrophils (%) (Auto) 82.4 H 40.0-77.0 % Lymphocytes (%) (Auto) 10.2 L 21.0-51.0 % Monocytes (%) (Auto) 6.1 3.0-13.0 % Eosinophils (%) (Auto) 0.0 0.0-8.0 % Basophils (%) (Auto) 0.2 0.0-5.0 % Neutrophils # (Auto) 5.2 1.8-7.7 K/uL Lymphocytes # (Auto) 0.6 L 1.0-4.8 K/uL Monocytes # (Auto) 0.4 0.1-1.0 K/uL Eosinophils # (Auto) 0.00 0.00-0.70 K/uL Basophils # (Auto) 0.01 0.00-0.20 K/uL Absolute Immature Granulocyte (auto 0.07 0-1 K/uL Nucleated Red Blood Cells 0.0 0.0-0.19 % Chemistry Labs: Test 11/28/24 03:41 11/26/24 13:27 Range/Units Sodium Level 149 H 136-145 mmol/L Potassium Level 4.0 3.5-5.1 mmol/L Chloride Level 110 101-111 mmol/L Carbon Dioxide Level 26 21-32 mmol/L Blood Urea Nitrogen 105 #*H 7-18 mg/dL Creatinine 3.8 H 0.5-1.3 mg/dL Glomerular Filtration Rate Calc 15 >90 mL/min Random Glucose 149 H 70-105 mg/dL Uric Acid 17.1 H 2.6-7.2 mg/dL Total Calcium 8.6 8.5-10.1 mg/dL Phosphorus Level 6.4 H 2.5-4.9 mg/dL Magnesium Level 3.00 H 1.80-2.40 mg/dL Whole Blood Glucose 111 H 70-110 MG/DL Coagulation Labs: Test 11/28/24 03:41 Range/Units D-Dimer Quantitative (PE/DVT) 2694 *H 0-500 ng/mL DIAGNOSTICS / RADIOLOGY RESULTS: IMAGING REPORT Signed PATIENT: CHRISTOS OROZCO MR#: [id number] : 1940 SEX: M AGE: 84 LOCATION: 2BH ORDER 1050 STATUS: ADM IN REPORT#: [id number] SERVICE 1049 REASON: ETT REPOSITIONED ORDERING PHYSICIAN: CRISS REYEZ PROCEDURE: CXR1VW - CHEST 1VW Exam Type: CHEST 1VW Clinical Information: ETT REPOSITIONED Comparison: None Findings: Endotracheal tube is noted with tip approximately 6.8 cm from debra and no interval changes are seen otherwise. IMPRESSION: Endotracheal tube tip as noted. DICTATED BY: KAREN HEATH MD DATE: 11/28/24 1139 ELECTRONICALLY SIGNED BY: KAREN HEATH MD DATE: 11/28/24 1141 PLAN Intubate PICC line Tamiflu Continue IV antibiotics Levaquin and Flagyl. Manage ventilator per ABG Venous Doppler negative for DVT on 11/28/24 Consider CTA once kidneys recover to rule out PE. NEURO: Minimize central acting medications as possible. Fall Precautions. Well lighted room through the day and minimize interruptions through the night to prevent acute delirium. PULMONARY: Supplemental 02 as needed Titrate Fio2 to keep Spo2 > or = 90% DuoNebs and CPT as needed IS hourly while awake for pulmonary hygiene Out of bed to chair as tolerated VAP Bundle Vent/BIPAP Settings: AC/VC, tidal volume 425 respiratory rate of 22, FiO2 of 100% and PEEP of 10. Driving pressure: Less than 30 P/F Ratio: 66.9 CARDIOVASCULAR: Follow hemodynamics. Titrate vasopressor to keep MAP >65 or systolic blood pressure >95mmHg Drips: Fentanyl Propofol Levophed LINES: PIV Pending PICC line GI & NUTRITION: Continue nutritional support Aspirations precautions Prokinetic agents and laxatives as needed KIDNEYS & ELECTROLYTES: Strict monitoring of intake and output Daily weights Avoid nephrotoxic agents Monitor electrolytes and replace as needed Goal urine output of 30mL/hr or 0.5mL/kg/hr ENDOCRINE: Maintain blood glucose between 100-180 at all times. Insulin sliding scale for blood glucose management INFECTIOUS DISEASE: Trend temperature. Magallanes-culture if febrile. Micro: [ ] Influenza type A Sputum culture positive for Staphylococcus aureus and Samanta albicans. Antibiotics: Levaquin Flagyl Tamiflu HEMATOLOGY & COAGULATION: Monitor H&H. Keep Hgb > 7 Transfuse 1 unit of PRBC for Hgb < 7 Transfuse 1 pack of platelets of platelets < 20, 000 Watch for any signs and symptoms of bleeding SKIN: Pressure ulcer prevention per facility protocol Rehab: PT/OT Prophylaxis: GI: Protonix DVT: Heparin Code Status: Full Resuscitation Disposition: ICU Other: Critical care time I personally spent 45 minutes of critical care time in treatment of this patient. This includes patient management, time at bedside, time reviewing tests, labs, appropriate images and studies, documentation, and patient care coordination. This time excludes separately billable procedures. CRISS REYEZ [facility] Nov 28, 2024 08:54
--- NOTE | 2024-11-28 09:15 | NUR ---
16FR FC INSERTED PER MOBILE HEAVY EQUIPMENT OPERATOR ORDER. STERILE TECHNIQUES MAINTAINED, PATIENT TOLERATED WELL. 600CC URINE OUTPUT - CLEAR, YELLOW.
[2024-11-28] MEDS: THIAMINE HCL 100 MG/ML 2ML VIAL IVP SCH (09:48)
[2024-11-28] MEDS: LACTATED RINGERS 1000ML 1,000 ML IV SCH (09:48)
--- NOTE | 2024-11-28 09:52 | HMCIMG ---
Exam Type: CHEST 1VW Clinical Information: hypoxic resp failure Comparison: None Findings: Pulmonary pattern is as before. No worrisome interval changes have taken place. Impression: Stable exam.
[2024-11-28] MEDS ORDERED: FENTanyl CITRate PF 50 MCG/1 ML 2ML VIAL IVP PRN (10:00)
--- NOTE | 2024-11-28 10:15 | NUR ---
INTUBATION PT INTUBATED AT BEDSIDE BY JESSICA MANNING AND KASANDRA RT. PT TOLERATED WELL.
--- NOTE | 2024-11-28 10:28 | PRN ---
[facility] Procedure Note-[facility] Procedure Note DATE OF PROCEDURE: 11/28/24 INDICATION: 10:15 Procedure performed: -Endotracheal intubation. Indication for procedure: -Acute respiratory failure. Pre-procedure checklist: -Informed consent obtained. -Time out per hospital policy. Medications used: -fentanyl 50 mcg IV -Etomidate 20 mg IV -rocuronium 40 mg IV Description of procedure: Hand hygiene was performed. Patient was sedated with IV Etomidate and paralyzed with IV rocuronium. A [7.5] endotracheal tube was inserted through the vocal cords on the first attempt using video-assisted glide scope with laryngeal scope blade size [4], grade [1] view. Tube secured at 25 cm at lip level. Bilateral breath sounds auscultated. Positive end-tidal CO2 capnography. Patient maintained 100% SpO2 during the entire procedure. Procedure completed without complications. Post-procedure chest x-ray showed proper placement of endo tracheal tube. Procedure was performed under direct supervision by [Dr. Jordan Hall.] Time spent performing the procedure is independent of the time spent planning and coordinating the patient's care. CRISS REYEZ [facility] Nov 28, 2024 10:28
[2024-11-28] MEDS ORDERED: FENTanyl CITRate PF 0.05 MG/ML 1,000 MCG in 0.9%NACL 100ML 100 ML IV PRN (11:00)
[2024-11-28] MEDS: FENTanyl CITRate PF 50 MCG/1 ML 2ML VIAL IVP ONE (11:01)
[2024-11-28] MEDS: ETOMIDATE 20MG VIAL IVP ONE (11:01)
[2024-11-28] MEDS: ARTIFICAL TEARS SOL 15 ML OU SCH (11:02)
[2024-11-28] MEDS: CHLORHEXIDINE GLUCONATE 15 ML MOUTHWASH MM SCH (11:02)
[2024-11-28] MEDS: FENTanyl 1000MCG+NS 100ML 100 ML IV SCH (11:06)
[2024-11-28] MEDS: levoFLOXacin 500 MG/D5W 100 ML IV SCH (11:22)
[2024-11-28] MEDS: proPOFol 1000 MG/100 ML 100 ML IV PRN (11:30)
--- NOTE | 2024-11-28 11:41 | HMCIMG ---
Exam Type: CHEST 1VW Clinical Information: ETT REPOSITIONED Comparison: None Findings: Endotracheal tube is noted with tip approximately 6.8 cm from debra and no interval changes are seen otherwise. IMPRESSION: Endotracheal tube tip as noted.
--- NOTE | 2024-11-28 11:42 | HMCIMG ---
Exam Type: CHEST 1VW Clinical Information: HYPOXIC AND POST INTUBATION AND OG TUBE Comparison: None Findings: Endotracheal tube is noted with tip approximately 7.8 cm from debra and no interval changes are seen otherwise. IMPRESSION: Endotracheal tube tip as noted.
[2024-11-28] MEDS: NOREPINEPHRIN 4MG/NS 250ML 250 ML IV PRN (12:13)
[2024-11-28 13:02] LABS: INR 0.96 (0.85-1.15); PROTHROMBIN TIME 10.2 SEC (9.6-11.6)
[2024-11-28] MEDS: metRONIDazole 500MG/100ML BAG 100 ML IVPB SCH (13:15)
--- NOTE | 2024-11-28 15:14 | NUR ---
Notes Met with pt. Pt in ICU and intubated. During the visit I observed Map at 89, pt on pressors and Propofol 24ml/hr x 24 hrs . Diet order change to TF of Nepro @ 20 ml/hr. + 150 ml H2O Flushes Q4hrs and CO2 WNL per charting. Trickle feed + Propofol provides 77% of pts. calorie needs Preformed NFPE during the visit. Observed loose skin around the orbitals, triceps, slight depression in the temporalis muscle, mild depression in interosseous muscle, mild depression in the quadriceps muscle thin visually assessed severe muscle/fat loss. Pt at risk for refeeding syndrome due to poor PO intake prior to NPO. Continue to provide trickle feed of Nepro if pt on pressors Once pt is off pressors and CO2 WNL advanced to TF goal rate TF Goal Rate: Nepro+ Propofol: Start full strength Nepro @ 20 ml/hr. for the first 24 hours increase rate as tolerated by 5 ml every 4 hours to a GOAL RATE of @ 30 ml/hr. 720 ml/day. + 115 H2o flushes Q4 + Propofol 24ml/hr. Provides 1930 kcals, 58 gm of protein, 1789 ml of fluid. ONCE MEDICALLY FEASIBLE Nepro once Propofol is discontinued: Start full strength Nepro at 20 @ 20 ml/hr. for the first 24 hours increase rate as tolerated by 5 ml every 4 hours to a GOAL RATE of 45ml/hr. 1080 ml/day + 165 ml H2O flushes Q4hrs. Provided 1944 ml, 87 gm protein, 1775 ml of fluid.ONCE MEDICALLY FEASIBLE If residuals more than 500 ml stop tube feed for 2 hrs. If repeated stop tube feed and contact MD. Recommendation Delay initiation nutrition if severely low levels of P, K+ and Mg, replenish prior to initial feeding or IV Dextrose Oder vit B1 lab, P, K+, Mg per refeeding syndrome Provide Trickle feed @20 ml/hr +150 H2O Flush Q4hrs. Provides 864 kcals, 39 gm of protein, 1249 Fluids Propofol @ 24 ml/hr provides 634 kcals, 576 ml fluid Provide MVI QD when medically feasible Continue Vit B1 as needed Continue Vit B Complex as needed Order triglyceride labs per propofol administration Monitor BM Monitor weight, Reweigh as possible Monitor electrolytes, Replenish electrolytes as protocol Monitor TF tolerance + need for TF adjustment Monitor Residuals. If residuals more than 500 ml stop tube feed for 2 hrs. If repeated stop tube feed and contact MD. Monitor goals of care RD to follow + available for consult per protocol Dietetic Student, Kia Qureshi Addendum: 11/28/24 at [address] Amended: Links added.
--- NOTE | 2024-11-28 15:22 | PN ---
NEPHROLOGY PROGRESS NOTE Date/Time Patient Seen: Nov 28, 2024 Reason for Consultation: 15:16 SUBJECTIVE: This is an 84-year-old male with a past medical history of coronary artery disease S/p CABG in 2004, hypertension, dyslipidemia. He presented to emergency room S/p fall. Continues to be followed by Cardiology. Urine culture has been negative Positive for influenza A He has been started on Tamiflu. He was transferred to the ICU, continues to be intubated and sedated. Continues to require vasopressors to maintain blood pressure. He has been started on antibiotics. Blood cultures has been negative He was noted to have elevated BUN/creatinine. We are consulted renal failure. Renal function remains elevated Electrolytes show a sodium of 149 mmol/L He was seen in the ICU No family at the bedside Prognosis remains guarded REVIEW OF SYSTEMS: Difficult to obtain given status of the patient who remains intubated mechanically ventilated PHYSICAL EXAM: General: acutely ill, sedated, intubated, and mechanically ventilated HEENT: head is atraumatic, pupils equal and reactive, ET tube in place Neck: supple, no masses, no lymphadenopathy, no thyromegaly, no JVD Lungs: decreased breath sounds bilaterally, symmetrical chest movement Cardio: regular rate, S1 and S2 normal, no rub or gallop Abdomen: soft, non tender, no distension, no organomegaly Extremities: trace edema bilateral lower extremities, no cyanosis or clubbing Skin: no rashes or suspicious lesions Neuro: sedated LABORATORY: [ ] Hematology Labs: Test 11/28/24 03:41 Range/Units White Blood Count 6.3 4.8-10.8 K/uL Red Blood Count 4.26 L 4.50-6.20 MIL/uL Hemoglobin 12.7 L 14.0-18.0 g/dL Hematocrit 38.4 L 42-54 % Mean Corpuscular Volume 90.1 79-99 fL Mean Corpuscular Hemoglobin 29.8 27.0-33.0 pg Mean Corpuscular Hemoglobin Concent 33.1 32.0-36.0 g/dL Red Cell Distribution Width 14.0 11.0-15.5 % Platelet Count 227 130-400 K/uL Mean Platelet Volume 10.6 H 7.5-10.5 fL Immature Granulocyte % (Auto) 1.1 H 0-1 % Neutrophils (%) (Auto) 82.4 H 40.0-77.0 % Lymphocytes (%) (Auto) 10.2 L 21.0-51.0 % Monocytes (%) (Auto) 6.1 3.0-13.0 % Eosinophils (%) (Auto) 0.0 0.0-8.0 % Basophils (%) (Auto) 0.2 0.0-5.0 % Neutrophils # (Auto) 5.2 1.8-7.7 K/uL Lymphocytes # (Auto) 0.6 L 1.0-4.8 K/uL Monocytes # (Auto) 0.4 0.1-1.0 K/uL Eosinophils # (Auto) 0.00 0.00-0.70 K/uL Basophils # (Auto) 0.01 0.00-0.20 K/uL Absolute Immature Granulocyte (auto 0.07 0-1 K/uL Nucleated Red Blood Cells 0.0 0.0-0.19 % Chemistry Labs: Test 11/28/24 12:38 11/28/24 03:41 Range/Units Lactic Acid Level 1.9 0.8-2.5 mmol/L Sodium Level 149 H 136-145 mmol/L Potassium Level 4.0 3.5-5.1 mmol/L Chloride Level 110 101-111 mmol/L Carbon Dioxide Level 26 21-32 mmol/L Blood Urea Nitrogen 105 #*H 7-18 mg/dL Creatinine 3.8 H 0.5-1.3 mg/dL Glomerular Filtration Rate Calc 15 >90 mL/min Random Glucose 149 H 70-105 mg/dL Uric Acid 17.1 H 2.6-7.2 mg/dL Total Calcium 8.6 8.5-10.1 mg/dL Phosphorus Level 6.4 H 2.5-4.9 mg/dL Magnesium Level 3.00 H 1.80-2.40 mg/dL Coagulation Labs: Test 11/28/24 12:38 11/28/24 03:41 Range/Units Prothrombin Time 10.2 9.6-11.6 SEC Prothromb Time International Ratio 0.96 0.85-1.15 D-Dimer Quantitative (PE/DVT) 2694 *H 0-500 ng/mL DIAGNOSTICS / RADIOLOGY: REASON: ETT REPOSITIONED ORDERING PHYSICIAN: CRISS REYEZ PROCEDURE: CXR1VW - CHEST 1VW Exam Type: CHEST 1VW Clinical Information: ETT REPOSITIONED Comparison: None Findings: Endotracheal tube is noted with tip approximately 6.8 cm from debra and no interval changes are seen otherwise. IMPRESSION: Endotracheal tube tip as noted. DICTATED BY: KAREN HEATH MD DATE: 11/28/24 113 REASON: HYPOXIC AND POST INTUBATION AND OG TUBE ORDERING PHYSICIAN: CRISS REYEZ PROCEDURE: CXR1VW - CHEST 1VW Exam Type: CHEST 1VW Clinical Information: HYPOXIC AND POST INTUBATION AND OG TUBE Comparison: None Findings: Endotracheal tube is noted with tip approximately 7.8 cm from debra and no interval changes are seen otherwise. IMPRESSION: Endotracheal tube tip as noted. DICTATED BY: KAREN HEATH MD DATE: 11/28/24 1139 REASON: rule out DVT ORDERING PHYSICIAN: CRISS REYEZ PROCEDURE: VENOUS ZANDRA - US VENOUS DOPPLER BILATERAL Exam Type: US VENOUS DOPPLER BILATERAL Clinical Information: rule out DVT Comparison: None Findings: The examination shows normal deep venous system. There is normal compressibility at all levels. There is no intraluminal clot. There is no occlusion. Adequate response is obtained on augmentation. Impression: No evidence of DVT. DICTATED BY: KAREN HEATH MD DATE: 11/28/24 0825 REASON: hypoxic resp failure ORDERING PHYSICIAN: CRISS REYEZ PROCEDURE: CXR1VW - CHEST 1VW Exam Type: CHEST 1VW Clinical Information: hypoxic resp failure Comparison: None Findings: Pulmonary pattern is as before. No worrisome interval changes have taken place. Impression: Stable exam. DICTATED BY: KAREN HEATH MD DATE: 11/28/24 0949 REASON: BRENDA ORDERING PHYSICIAN: Maurice LONGORIA II, MD PROCEDURE: ART IN OUT - US ART IN & VEIN OUT RENAL ARTERY ULTRASOUND. COMPARISON: None available. FINDINGS: There is no significant aortic plaque, and the peak systolic velocity in the aorta is normal before and after the renal artery takeoff bilaterally. The highest peak systolic velocity of the renal arteries is normal bilaterally. Bilateral RAR's are within normal limits. IMPRESSION: No evidence of renal artery stenosis. DICTATED BY: KAREN HEATH MD DATE: 11/27/24 1244 REASON: BRENDA ORDERING PHYSICIAN: Maurice LONGORIA II, MD PROCEDURE: ART IN OUT - US ART IN & VEIN OUT RENAL ARTERY ULTRASOUND. COMPARISON: None available. FINDINGS: There is no significant aortic plaque, and the peak systolic velocity in the aorta is normal before and after the renal artery takeoff bilaterally. The highest peak systolic velocity of the renal arteries is normal bilaterally. Bilateral RAR's are within normal limits. IMPRESSION: No evidence of renal artery stenosis. DICTATED BY: KAREN HEATH MD DATE: 11/27/24 1244 REASON: fall with shoulder pain ORDERING PHYSICIAN: DIEGO BOLDEN MD PROCEDURE: CXR1VW - CHEST 1VW CHEST 1VW HISTORY: Status post fall COMPARISON: 11/21/2024 FINDINGS: A frontal projection of the chest was obtained. Mild bilateral pulmonary infiltrates are seen may be related to mild pulmonary vascular congestion with possible superimposed pneumonitis. The heart is borderline enlarged. All the lines and tubes are again seen in place. Degenerative changes are seen. IMPRESSION: 1. Mild bilateral pulmonary infiltrates are seen may be related to mild pulmonary vascular congestion with possible superimposed pneumonitis. DICTATED BY: NOELLE MARIA MD DATE: 11/24/24 0835 REASON: fall on face from standing ORDERING PHYSICIAN: DIEGO BOLDEN MD PROCEDURE: MAXFACI WO - CT MAXILLOFACIAL W/O CONTRAST CT MAXILLOFACIAL W/O CONTRAST HISTORY: No additional history given. COMPARISON: None TECHNIQUE: Multiple sequential high-resolution axial images of the paranasal sinuses were obtained. Postprocessing sagittal and coronal reconstruction images were also obtained. Patient was not given contrast through intravenous route. FINDINGS: Nasal septum is grossly midline. There is no evidence of mucoperiosteal thickening involving the paranasal sinuses. The infundibula are patent bilaterally. Mildly depressed fracture of the frontal nasal bones with left more than right. There is soft tissue swelling with soft tissue emphysema. There is no evidence of air-fluid level in the paranasal sinuses. Parapharyngeal fat planes are preserved bilaterally. IMPRESSION: 1. Mildly depressed fracture of the frontal nasal bones with left more than right. There is soft tissue swelling with soft tissue emphysema. CT was performed with one or more following dose reduction techniques: automated exposure control, adjustment of the mA and kv according to patient's size, or use of a iterative reconstruction technique. DICTATED BY: NOELLE MARIA MD DATE: 11/24/24 0736 ASSESSMENT: Hypernatremia Acute on chronic renal failure Acute hypoxic respiratory failure Suspected COPD exacerbation Influenza A positive Acute on chronic CHF Pneumonia Coronary artery disease Sepsis Fall Bilateral Nasal bone fractures Soft tissue emphysema Depression Frailty PLAN: Labs, diagnostic, radiologic exams reviewed and interpreted by myself and supervising physician. We have reviewed external records in detail Obtain a complete renal ultrasound. Continue mechanical ventilation and sedation Continue with IV pressors. Order CBC, CMP, and electrolytes in am Renal diabetic diet Monitor blood pressure adjust medication doses as needed Avoid hypotensive episodes May use Dilaudid 0.5 mg IV every 6 hours as needed for severe pain Monitor blood sugars Strict intake, output, and daily weight should be monitored Please renally adjust medications Avoid nephrotoxic and nonsteroidal drugs Avoid contrast if possible Will continue to monitor renal function, anemia, electrolytes Treatment plan discussed with patient Questions were answered We have discussed with the other team physicians in detail about the care plan We will continue to monitor the patient closely Total critical care time spent with patient, nursing staff, critical care team over 35 minutes ATTESTATION BY PHYSICIAN I have seen and examined the patient. I reviewed the documentation, medical decision making, and treatment plan as noted by the mid-level provider above. I agree with the findings and plan of care. ESTER GARAY MD, [facility] Nov 28, 2024 15:22
--- NOTE | 2024-11-28 16:16 | PN ---
[facility] PROGRESS NOTE Date of Service: Nov 28, 2024 Time of Service: 16:07 SUBJECTIVE: Mr. Danile is a 84-year-old male that was seen and examined today on 11/24/2024. Patient is a good historian of personal health Patient states that he came to emergency department with a chief complaint of weakness. Onset was 11/23/2024. Location is to bilateral lower extremities. Duration is constant. Character is described as, my legs are too weak to walk very far. There was no alleviating factors. Symptoms are aggravated with physical activity. Patient reports two associated falls tonight once at midnight and 1:23 a.m.. Today in the emergency department WBCs 12.5, left shift neutrophils 81.1%, creatinine 1.8, chest x-ray is pending radiology interpretation however my initial impression is that there was a left lower lobe infiltrate. Additionally patient arrived with a temperature of 100.8, heart rate 106 and suspected source of infection being lungs patient met clinical sepsis criteria 11/25/24 patient was seen and examined case discussed with the RN. He is still slightly short of breath. Occasional cough. No fever or chills 11/26/2024 patient was seen in room 321. Patient is alert, awake and oriented to time place person. Patient's labs show WBC came down to 9.1 from 12.5, hemoglobin 11.3 and chemistries show sodium 132, potassium 3.9 and creatinine 1.3, BUN 34. Patient is hemodynamically stable with temperature 97.3, pulse 77, respiratory rate 21, blood pressure 126/75. Patient is currently requiring 9 L O2 high-flow nasal cannula and is saturating at 91%, pulmonology has been consulted for the case to evaluate further. Patient did not have oxygen requirement at home, and chest x-ray showed bilateral pulmonary infiltrates. Patient followed closely. 11/27/2024 - patient has hard time breathing and is saturating at 86-90% on 111 SpO2 on non-rebreather mask . Pulmonology started steroids and the patient and patient is getting transferred to ICU. Patient's white blood count came down to 7.7 And hemoglobin 12.4. Patient's ABG shows pH of 7.44, pCO2 34 and bicarb of 30 . Patient's creatinine elevated to 2.4 And nephrology has been consulted on the case, we will follow Nephrology recommendations. plan to transfer to [facility] once the condition improves, Patient will be monitored closely 11/28/2024 - patient has been transferred to room 207 and has been sedated and intubated, on sedation patient became hypotensive and has been started on pressors with Levophed . Patient is labs show creatinine 3.4 And BUN 105. We will follow up pulmonology recommendations on the patient. Patient had type a influenza positive. Patient will be monitored closely . REVIEW OF SYSTEMS CONSTITUTIONAL: Denies fevers, chills, or night sweats. No unintentional weight loss reported. NEUROLOGICAL: Denies headache, amaurosis fugax, motor weakness, sensory deficit, vertigo/spinning sensation, gait abnormalities, or tremors. ENT: No hearing loss, otalgia, otorrhea, rhinitis, rhinorrhea, hoarseness, or sore throat. CARDIOVASCULAR: Denies any exertional angina, dyspnea on exertion, orthopnea, paroxysmal nocturnal dyspnea, palpitations, life-threatening arrhythmias, claudication. PULMONARY: Denies any shortness of breath, cough, phlegm/sputum, hemoptysis, pl euritic chest pain. SLEEP: Denies morning headaches, daytime somnolence or napping. Denies difficulty falling asleep, staying asleep, waking from sleep. Denies knowledge of snoring. GASTROINTESTINAL: Denies any type of dysphagia to either liquids or solids. Denies nausea, vomiting, pyrosis, early satiety, abdominal pain, diarrhea, constipation, or changes in stool consistency or caliber. Denies coffee-ground emesis, hematemesis, hematochezia, or melanotic stools. GENITOURINARY: Denies frequency, urgency, nocturia, hematuria or incontinence (Storage/Irritative symptoms.) Low urinary stream, straining to void, urinary intermittency or hesitancy, splitting of the voiding stream, terminal dribbling. ENDOCRINOLOGIC: Denies polyuria, polydipsia, polyphagia or heat/cold intolera nces. HEMATOLOGIC: Denies thrombophilia/previous clots, or coagulopathy/bleeding disorders. ONCOLOGIC: Denies personal history of malignancy. DERMATOLOGIC: Denies rashes or pruritus. PSYCHIATRIC: Denies any suicidal or homicidal ideation. Denies hallucinations. PHYSICAL EXAM GENERAL APPEARANCE: The patient is awake, alert, and oriented, in no acute cardiopulmonary distress. NEUROLOGICAL: Cranial nerves II-XII grossly intact. Motor is 5/5 in bilateral upper and lower extremities proximal to distal. No sensory deficits. HEENT: Face is symmetric. Pupils are equal and reactive. Extraocular movements are intact. NECK: Supple. No JVD. No thyromegaly. No submental, submandibular, pre- /postauricular, occipital or supraclavicular lymphadenopathy. CHEST: Normal chest expansion. No Telemetry. LUNGS: Absence of any rales, rhonchi or any wheezing. CARDIOVASCULAR: Regular. S1 and S2 normal. No appreciable rubs, murmurs or gallops. ABDOMEN: Soft, nontender, and nondistended. There is no rebound, voluntary guarding, or rigidity. : Deferred. No Joshua. EXTREMITIES: Non-edematous and not cyanotic. No clubbing. Good capillary refill. SKIN: No skin breakdown. Vital Signs (last 8hr) Date Time Temp Pulse Resp B/P (MAP) Pulse Ox O2 Delivery O2 Flow Rate FiO2 11/28/24 15:15 88 20 87/55 (66) 95 11/28/24 15:00 87 20 87/53 (64) 94 11/28/24 14:45 86 21 97/46 (63) 95 11/28/24 14:41 88 100 11/28/24 14:30 88 20 95/41 (59) 88 11/28/24 14:15 89 20 108/54 (72) 96 11/28/24 14:00 90 20 92/58 (69) 97 11/28/24 13:45 88 20 101/65 (77) 97 11/28/24 13:30 89 20 100/55 (70) 96 11/28/24 13:15 88 20 92/59 (70) 96 11/28/24 13:00 89 20 94/53 (67) 97 11/28/24 12:45 90 27 89/54 (66) 97 11/28/24 12:30 90 22 96/60 (72) 97 11/28/24 12:25 90 21 92/52 (65) 97 11/28/24 12:15 91 21 89/59 (69) 97 11/28/24 12:13 118/61 11/28/24 12:04 102 100 11/28/24 12:00 98.4 11/28/24 12:00 98.4 91 21 102/55 (71) 99 11/28/24 12:00 97 Non-Rebreather+ 0 100 Hi-Flow N/C+ 11/28/24 11:45 113 21 118/61 (80) 98 11/28/24 11:30 91 21 81/43 (56) 98 11/28/24 11:15 109 20 150/87 (108) 100 11/28/24 11:13 109 20 11/28/24 11:00 109 20 175/104 (127) 100 11/28/24 10:45 106 20 146/106 (119) 100 11/28/24 10:30 95 21 136/84 (101) 99 11/28/24 10:16 100 11/28/24 10:15 86 18 117/51 (73) 85 11/28/24 10:00 84 16 124/60 (81) 87 LABS: Laboratory: Test 11/28/24 12:38 11/28/24 04:43 11/28/24 03:45 11/28/24 03:41 Range/Units Prothrombin Time 10.2 9.6-11.6 SEC Prothromb Time International Ratio 0.96 0.85-1.15 Lactic Acid Level 1.9 0.8-2.5 mmol/L Triglycerides Level 282 H 30-200 mg/dL Blood Gas Specimen Type Arterial Arterial Blood pH 7.415 7.350-7.450 Arterial Blood Partial Pressure CO2 39 35-48 mmHg Arterial Blood Partial Pressure O2 66.9 L 83.0-108.0 mmHg Arterial Blood HCO3 24.4 21.0-28.0 mmol/L Arterial Blood Oxygen Saturation 93.6 L 94.0-98.0 % Arterial Blood Base Excess 0.0 -2.0-3.0 mmol/L Blood Gas Temperature 37.0 35.5-37.0 CELSIUS Blood Gas Flow-by 50.00 H 0.00-15.00 L/min Blood Gas Vent Mode HFNC,NRB ROOM AIR FiO2 100.0 % Blood Gas Specimen Comment RR,RN GIO Influenza Type A Antigen Positive For Type A *A NEGATIVE Influenza Type B Antigen Negative For Type B NEGATIVE SARS-CoV-2 Antigen (Rapid) PRESUMPTIVE NEGATIVE NEGATIVE White Blood Count 6.3 4.8-10.8 K/uL Red Blood Count 4.26 L 4.50-6.20 MIL/uL Hemoglobin 12.7 L 14.0-18.0 g/dL Hematocrit 38.4 L 42-54 % Mean Corpuscular Volume 90.1 79-99 fL Mean Corpuscular Hemoglobin 29.8 27.0-33.0 pg Mean Corpuscular Hemoglobin Concent 33.1 32.0-36.0 g/dL Red Cell Distribution Width 14.0 11.0-15.5 % Platelet Count 227 130-400 K/uL Mean Platelet Volume 10.6 H 7.5-10.5 fL Immature Granulocyte % (Auto) 1.1 H 0-1 % Neutrophils (%) (Auto) 82.4 H 40.0-77.0 % Lymphocytes (%) (Auto) 10.2 L 21.0-51.0 % Monocytes (%) (Auto) 6.1 3.0-13.0 % Eosinophils (%) (Auto) 0.0 0.0-8.0 % Basophils (%) (Auto) 0.2 0.0-5.0 % Neutrophils # (Auto) 5.2 1.8-7.7 K/uL Lymphocytes # (Auto) 0.6 L 1.0-4.8 K/uL Monocytes # (Auto) 0.4 0.1-1.0 K/uL Eosinophils # (Auto) 0.00 0.00-0.70 K/uL Basophils # (Auto) 0.01 0.00-0.20 K/uL Absolute Immature Granulocyte (auto 0.07 0-1 K/uL Nucleated Red Blood Cells 0.0 0.0-0.19 % D-Dimer Quantitative (PE/DVT) 2694 *H 0-500 ng/mL Sodium Level 149 H 136-145 mmol/L Potassium Level 4.0 3.5-5.1 mmol/L Chloride Level 110 101-111 mmol/L Carbon Dioxide Level 26 21-32 mmol/L Blood Urea Nitrogen 105 #*H 7-18 mg/dL Creatinine 3.8 H 0.5-1.3 mg/dL Glomerular Filtration Rate Calc 15 >90 mL/min Random Glucose 149 H 70-105 mg/dL Uric Acid 17.1 H 2.6-7.2 mg/dL Total Calcium 8.6 8.5-10.1 mg/dL Phosphorus Level 6.4 H 2.5-4.9 mg/dL Magnesium Level 3.00 H 1.80-2.40 mg/dL Test 11/27/24 14:51 11/27/24 08:15 Range/Units Hemoglobin (Blood Gas) 13.4 L 13.5-17.5 g/dL Sodium (Blood Gas) 143 136-145 MMOL/L Bedside Potassium (Blood Gas) 3.9 3.4-4.5 MMOL/L Bedside Chloride (Blood Gas) 106 98-107 MMOL/L Bedside Glucose (Blood Gas) 99 H 65-95 MG/DL Bedside Ionized Calcium (Blood Gas) 1.09 L 1.15-1.33 MMOL/L Bedside Lactic Acid (Blood Gas) 1.35 H 0.36-0.75 MMOL/L Urine Color LIGHT-YELLOW YELLOW Urine Appearance CLOUDY H CLEAR Urine pH 5.0 5.0-8.0 Urine Specific Davy 1.014 1.001-1.031 Urine Protein 10 H NEGATIVE mg/dL Urine Glucose (UA) NEGATIVE NEGATIVE mg/dL Urine Ketones NEGATIVE NEGATIVE mg/dL Urine Occult Blood NEGATIVE NEGATIVE Urine Nitrate NEGATIVE NEGATIVE Urine Bilirubin NEGATIVE NEGATIVE mg/dL Urine Urobilinogen 0.2 0.2-1.0 mg/dL Urine Leukocyte Esterase NEGATIVE NEGATIVE Lay/uL Urine RBC 0-1 0-1 /HPF Urine WBC 2-5 H 0-1 /HPF Urine Squamous Epithelial Cells RARE 0-2 /HPF Urine Bacteria RARE None Seen /HPF Urine Hyaline Casts 6-10 H 0-1 /LPF /LPF Urine Other Casts 6 None Seen /LPF Urine Random Sodium 23 L 40-220 mmol/l Urine Random Potassium 55 25-125 mmol/L Urine Random Chloride 61 L 110-250 mmol/L Current Medications Medications (Trade) Dose Ordered Sig/Renata Route PRN Reason Start Time Stop Time Status Last Admin Dose Admin Acetaminophen (TYLenol 325MG TAB) 650 mg Q6H PRN PO TEMPERATURE GREATER THAN 101.5 11/24/24 05:30 12/24/24 05:29 11/24/24 23:45 650 MG Albuterol (DUOneb) 1 UDVIAL [id number] 11/24/24 06:00 11/27/24 07:26 DC 11/27/24 06:54 1 UDVIAL Albuterol (DUOneb) 1 UDVIAL [id number] 11/24/24 18:00 12/24/24 17:59 11/28/24 11:12 1 UDVIAL Artificial Tears (Artificial Tears) APPLY 2 DROPS TO EACH ... Q6H OU 11/28/24 10:00 12/28/24 09:59 11/28/24 11:02 2 DROP Aspirin (Aspirin 81mg Chew Tab) 81 mg DAILY PO 11/24/24 09:00 12/24/24 08:59 11/27/24 08:18 81 MG Atorvastatin Calcium (LIPItor 40MG) 40 mg HS PO 11/24/24 21:00 12/24/24 20:59 11/26/24 20:56 40 MG Budesonide (Pulmicort 0.5 Mg/2ml) 0.5 mg BIDRESP IH 11/27/24 18:00 12/27/24 17:59 11/28/24 06:57 0.5 MG Bupropion HCl (WellBUTrin SR 150MG) 150 mg DAILY PO 11/24/24 09:00 12/24/24 08:59 11/27/24 08:18 150 MG Carvedilol (Coreg 3.125MG) 3.125 mg BID PO 11/27/24 09:00 11/28/24 07:14 DC 11/27/24 08:18 3.125 MG Carvedilol (Coreg 6.25MG) 6.25 mg BID PO 11/24/24 09:00 11/27/24 07:23 DC 11/26/24 20:56 6.25 MG Chlorhexidine Gluconate (Peridex) 15 ml Q6H MM 11/28/24 10:00 12/12/24 09:59 11/28/24 11:02 15 ML Fentanyl Citrate 100 ml @ 0 mls/hr PROTOCOL IV 11/28/24 11:00 12/05/24 10:59 11/28/24 11:06 2.5 MLS/HR Fentanyl Citrate (FENTanyl CITRate PF 50 MCG/ 1 ML 2ML VIAL) FOR FENTANYL PRISCILLA... AD PRN IVP BOLUS 11/28/24 10:00 11/28/24 10:41 DC Fentanyl Citrate 1000 mcg/Sodium Chloride 120 ml @ 0 mls/hr AD PRN IV TITRATE 11/28/24 11:00 11/28/24 10:52 DC Furosemide (LASix 40MG VIAL) 40 mg AM IV 11/27/24 09:00 11/28/24 10:54 DC 11/27/24 12:23 40 MG Furosemide (LASix 40MG VIAL) 40 mg BID IV 11/25/24 21:00 11/27/24 07:23 DC 11/26/24 20:57 40 MG Guaifenesin (RobiTUSSin SUGAR-FREE 100 MG/ 5 ML UDCUP) 400 mg Q4H PRN PO cough 11/24/24 05:30 12/24/24 05:29 11/24/24 09:28 400 MG Heparin Sodium (Porcine) (HEParin 5,000 UNIT VIAL) 5,000 unit BID SQ 11/24/24 09:00 12/24/24 08:59 11/27/24 23:00 5,000 UNIT Home Med (Home Medication) 1 each DAILY PO 11/24/24 09:00 12/24/24 08:59 Home Med (Home Medication) Mv-Mn/Iron/FA/ Herbal Cmplx#190 (Vitamin... DAILY PO 11/24/24 09:00 12/24/24 08:59 Hydralazine HCl (APRESOLine 20MG INJ) 10 mg Q6H PRN IV For:SBP above 160;DBP above 90 11/24/24 05:30 12/24/24 05:29 Lactated Ringer's 1,000 ml @ 75 mls/hr [id number] IV 11/28/24 09:00 11/30/24 08:59 11/28/24 09:48 75 MLS/HR Lactated Ringer's 1,000 ml @ 100 mls/hr Q10H IV 11/24/24 05:30 11/25/24 09:35 DC 11/25/24 03:57 100 MLS/HR Levofloxacin/ Dextrose (LEvaquIN 500 MG/ D5W 100 ML) 500 mg Q48H IV 11/28/24 12:00 12/04/24 05:29 11/28/24 11:22 500 MG Levofloxacin/ Dextrose (LEvaquIN 750 MG/ D5W 150 ML) 750 mg Q48H IV 11/24/24 05:30 11/28/24 05:28 DC 11/26/24 05:01 750 MG Lisinopril (Prinivil 5mg) 5 mg DAILY PO 11/26/24 09:00 11/27/24 07:23 DC 11/26/24 08:53 5 MG Magnesium Sulfate 50 ml @ 0 mls/hr PROTOCOL PRN IV MAGNESIUM PROTOCOL 11/25/24 12:00 12/25/24 11:59 11/25/24 13:19 25 MLS/HR Methylprednisolone Sodium Succinate (Solu-medROL 40MG) 40 mg BID IVP 11/27/24 21:00 12/27/24 20:59 11/28/24 09:48 40 MG Metronidazole/ Sodium Chloride 100 ml @ 100 mls/hr Q8H6 IVPB 11/28/24 14:00 12/08/24 13:59 11/28/24 13:15 100 MLS/HR Montelukast Sodium (SinguLAIR) 10 mg HS PO 11/24/24 21:00 12/24/24 20:59 11/26/24 20:56 10 MG Morphine Sulfate (morPHINE 2MG SYG) 2 mg Q4H PRN IVP SEVERE PAIN (7-10) 11/24/24 06:00 11/27/24 16:18 DC 11/24/24 07:56 2 MG Norepinephrine 250 ml @ 0 mls/hr AD PRN IV DIRECTED 11/28/24 10:00 12/28/24 09:59 11/28/24 12:13 27.18 MLS/HR Olanzapine (ZyPREXA 5 mg tab) 2.5 mg HS PO 11/24/24 21:00 12/24/24 20:59 11/26/24 20:56 2.5 MG Ondansetron HCl (zoFRAN 4MG INJ) 4 mg Q6H PRN IV NAUSEA/VOMITING 11/24/24 05:30 12/24/24 05:29 Oseltamivir Phosphate (Tamiflu) 75 mg Q24H PO 11/28/24 09:00 12/03/24 08:59 Pantoprazole Sodium (PROTonix 40MG TAB) 40 mg DAILY PO 11/24/24 09:00 12/24/24 08:59 11/27/24 08:18 40 MG Potassium Chloride (K-Dur/Klor-Con 20meq) 20 meq AD PRN PO POTASSIUM PROTOCOL 11/25/24 10:30 12/25/24 10:29 Potassium Chloride (KCl 10% Elixir 20meq/15ml) 20 meq AD PRN PO POTASSIUM PROTOCOL 11/25/24 10:30 12/25/24 10:29 Propofol 100 ml @ 0 mls/hr AD PRN IV SEDATION FOR VENT MANAGEMENT 11/28/24 10:00 12/28/24 09:59 11/28/24 11:30 2.17 MLS/HR Thiamine HCl (Vitamin B-1) 100 mg DAILY IVP 11/28/24 09:00 11/30/24 09:01 11/28/24 09:48 100 MG Vitamin B Complex/ Vit C/Folic Acid (Nephrovite Tablet) 1 cap DAILY PO 11/28/24 09:00 12/28/24 08:59 DIAGNOSTICS / RADIOLOGY: [ ] ASSESSMENT: Pneumonia POA History of coronary artery disease CABG x3 CKD stage 3 POA Sepsis POA Fall POA Bilateral Nasal bone fractures POA Soft tissue emphysema POA Depression POA Frailty POA Hyponatremia POA Acute hypoxic respiratory failure Type a influenza Intubation status PLAN: Continue the current medication regimen Monitor a.m. labs We will follow pulmonology recommendations Follow cardiology recommendations Continue inhalers, nebulizers as needed Try to wean off oxygen as tolerated DVT prophylaxis with heparin and GI prophylaxis with pantoprazole Continue Solu-Medrol Continue Lasix Continue home medications Continue Levaquin Continue pressors as needed and try to wean them off as tolerated Continue Tamiflu Follow nephrology recommendations ATTESTATION BY PHYSICIAN I have seen and examined the patient. I reviewed the documentation, medical decision making, and treatment plan as noted by the resident provider above. I agree with the findings and plan of care. Missael Garland MD, KEERTI K MD Nov 28, 2024 16:16
[2024-11-28 16:59] LABS: ABG BASE EXCESS -5.1 mmol/L (-2.0-3.0); ABG HCO3 21.4 mmol/L (21.0-28.0); ABG OXYGEN SATURATION 86.5 % (94.0-98.0); ABG PCO2 46 mmHg (35-48); ABG PH 7.289 (7.350-7.450); CARBON MONOXIDE 1.6 % (0.5-1.5); DEVICE COMMENT LR ARACELY; HHb 13.2; PO2, ARTERIAL BG 65.5 mmHg (83.0-108.0); VENT MODE, BG AC (ROOM AIR)
[2024-11-28 17:47] LABS: ALBUMIN 2.1 g/dL (3.5-5.0); BILIRUBIN,TOTAL 0.6 mg/dL (0.2-1.0); CREATININE 4.8 mg/dL (0.5-1.3); POTASSIUM 4.4 mmol/L (3.5-5.1)
--- NOTE | 2024-11-28 18:04 | HMCIMG ---
PORTABLE CHEST RADIOGRAPH INDICATION: PICC LINE PLACEMENT COMPARISON: 11/28/2024 FINDINGS/IMPRESSION: bus monitor leads overlie the field of view. Median sternotomy wires are in appropriate alignment. Stable endotracheal tube, and tip of left PICC at the junction of the left innominate vein and SVC. Remainder of the study is unchanged.
--- NOTE | 2024-11-28 23:25 | NUR ---
reported to NABI SECURITY FIELD SUPERVISOR poor urine output and low 02 sat pt recently intubated earlier today for respiratory failure sedated on ventilator 100% fio2, pending head ct scan unable to lay flat, and unstable. Lvn is aware okay not to move at this time. about 10 cc of urine output for 7 pm shift on LR75 ml /hr, bun elevated 128, creatinine 1.8 no changes to medications - Dr. Figueredo on the case will make aware as per olman SECURITY FIELD SUPERVISOR might need HD sooner. noted paged Dr. Elaine holistic health practitioner pending call back and report no urine output. 02 sat slowly recuperating unable to tolerate normal ADL turns. on levo, fentanyl and propofol for sedation. will cont to monitor pt.
[2024-11-29] VITALS (72 sets, daily range): BP systolic 46–181; BP diastolic 30–94; PULSE 46–150; RESP 14–26; TEMP 98.1–98.6; O2SAT 87–99
[2024-11-29 01:16] LABS: ABG BASE EXCESS -7.2 mmol/L (-2.0-3.0); ABG OXYGEN SATURATION 87.7 % (94.0-98.0); ABG PCO2 47 mmHg (35-48); ABG PH 7.252 (7.350-7.450); PO2, ARTERIAL BG 61.5 mmHg (83.0-108.0); VENT MODE, BG AC VC (ROOM AIR)
--- NOTE | 2024-11-29 02:32 | NUR ---
late entry 0000- reported to benchmark pt m02 sat decreased to low 80s pt on ventilator already at 100 fio2, Amelie lead accountant called back new order increase peep to 12 from 10 continue same other vent settings and abg after 30 min, reported abg po2 of 61 was reported no new orders continue with same settings
[2024-11-29 04:24] LABS: BASOPHILS # (AUTO) 0.01 K/uL (0.00-0.20); BASOPHILS % (AUTO) 0.1 % (0.0-5.0); HEMATOCRIT 36.9 % (42-54); IMMATURE GRANULOCYTE ABSOLUTE 0.13 K/uL (0-1); LYMPHOCYTES # (AUTO) 0.6 K/uL (1.0-4.8); LYMPHOCYTES % (AUTO) 4.6 % (21.0-51.0); MEAN CORPUSCULAR HEMOGLOBIN 29.3 pg (27.0-33.0); MEAN CORPUSCULAR HGB CONC 30.6 g/dL (32.0-36.0); MEAN CORPUSCULAR VOLUME 95.6 fL (79-99); MONOCYTES # (AUTO) 1.2 K/uL (0.1-1.0); MONOCYTES % (AUTO) 8.6 % (3.0-13.0); NEUTROPHILS # (AUTO) 11.4 K/uL (1.8-7.7); NEUTROPHILS % (AUTO) 85.7 % (40.0-77.0); NUCLEATED RED BLOOD CELLS 0.1 % (0.0-0.19); PLATELET COUNT (AUTO) 285 K/uL (130-400); RED BLOOD CELL COUNT(AUTO) 3.86 MIL/uL (4.50-6.20); RED CELL DISTRIBUTION WIDTH 14.8 % (11.0-15.5); WHITE BLOOD COUNT (AUTO) 13.4 K/uL (4.8-10.8)
[2024-11-29 04:48] LABS: ALBUMIN 1.7 g/dL (3.5-5.0); BILIRUBIN,TOTAL 0.4 mg/dL (0.2-1.0); CREATININE 4.9 mg/dL (0.5-1.3); MAGNESIUM 2.6 mg/dL (1.80-2.40); PHOSPHORUS 7.9 mg/dL (2.5-4.9); POTASSIUM 4.6 mmol/L (3.5-5.1); TOTAL PROTEIN, SERUM 5.9 g/dL (6.0-8.3)
--- NOTE | 2024-11-29 05:42 | NUR ---
per RN Alfreda vega unable to lay flat for exam
--- NOTE | 2024-11-29 06:58 | EKG ---
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
--- NOTE | 2024-11-29 07:44 | PN ---
[facility] PROGRESS NOTE Date Patient Seen: Nov 29, 2024 Time of Visit: 07:16 Supervising Physician: Jordan Hall MD Primary Care Physician: Self referral Outpatient Specialists: [ Inpatient Consults: DR Farrar, Dr Figueredo, Dr James Atkins PROBLEM LIST: Acute Hypoxemic resp failure requiring intubation 11/28/24 Suspected COPD exacerbation Acute on chronic CHF POA Community-acquired viral pneumonia with superimposed bacterial Staphylococcus aureus + Samanta albicans + Influenza Typa A, POA History of coronary artery disease CABG x3 CKD stage 3 POA Sepsis POA Fall POA Bilateral Nasal bone fractures POA Soft tissue emphysema POA Depression POA Frailty POA Hyponatremia POA Acute hypoxic respiratory failure 60 pack year smoker INTERVAL HISTORY: Per RN patient had a desaturation episode during the night and PEEP pressure increased to 12. This morning continues on mechanical ventilation with a assist-control volume control tidal volume 4respiratory rate of 20 FiO2 of 100% and PEEP of 12. Pressure of 25. Current vitals for heart rate of 102 satu rating 100% on the bedside monitor respiratory rate of 20 on the vent, blood pressure 114/66 with Levophed at 0.14 mcg/kg per minute, continues with LR at 75 mL/hour. Stopped in IV fluids now. Continue with tube feedings and water flushes. Patient has remained afebrile in the last24 hours. Urine output of 665 mL in the last 24 hours. On laboratory WBCs 13.4 may be reactive from Solu- Medrol, H&H is 11.3/36.9 neutrophils 75.7 similar to yesterday. Chemistries sodium has [id number] today, BUN slightly improved 120 20 creatinine increased to 4.9 GFR of 11 [id number] mg/dL total calcium 7.8 Magnesium of 2.6 albumin of 1.7. We will change propofol to Precedex in order to start full-dose feeding and we will start weaning FiO2. Chest x-ray today with slight improvement. No pneumothorax. ET tube is one 3 cm from the debra, patient has a long neck we will inform RT to adjust ET tube 2 cm in. We will ask pharmacy to adjust medications per renal function. REVIEW OF SYSTEMS: Unable to perform due to patient intubated. PHYSICAL EXAM: GENERAL: Intubated, critically ill. HEENT: Sclera non icteric, moist mucosa NECK: Supple, no JVD, trachea midline LUNGS: Diminished breath sounds bilaterally. No wheezes HEART: Regular rate and rhythm. Normal S1 and S2, without murmurs ABD: Abdomen soft, nontender. Bowel sounds present EXT: No clubbing cyanosis or edema NEURO: Alert and oriented to person, follows commands Vital Signs (last 8hr) Date Time Temp Pulse Resp B/P (MAP) Pulse Ox O2 Delivery O2 Flow Rate FiO2 11/29/24 07:14 100 20 11/29/24 07:13 100 100 11/29/24 06:16 101 20 91/59 (70) 100 11/29/24 06:01 100 20 97/60 (72) 100 11/29/24 05:46 101 20 90/60 (70) 100 11/29/24 05:31 102 20 79/57 (64) 99 11/29/24 05:16 102 20 79/54 (62) 98 11/29/24 05:01 103 22 98/57 (71) 87 11/29/24 04:46 102 20 100/52 (68) 94 11/29/24 04:31 102 20 98/52 (67) 92 11/29/24 04:16 102 20 76/55 (62) 91 11/29/24 04:10 102 100 11/29/24 04:01 98.4 102 22 91/59 (70) 92 11/29/24 04:00 87 Ventilator+ 0 100 11/29/24 04:00 98.2 Ventilator 100 11/29/24 03:46 104 20 89/58 (68) 92 11/29/24 03:31 103 20 94/61 (72) 95 11/29/24 03:16 103 23 92/61 (71) 93 11/29/24 03:01 104 21 87/63 (71) 94 11/29/24 02:46 104 20 93/51 (65) 92 11/29/24 02:30 85 22 93 11/29/24 02:16 86 22 106/53 (70) 93 11/29/24 02:15 86 22 92 11/29/24 02:01 86 21 101/63 (76) 92 11/29/24 02:00 85 21 93 11/29/24 01:46 85 20 99/60 (73) 93 11/29/24 01:45 85 21 94 11/29/24 01:31 85 21 93/62 (72) 93 11/29/24 01:30 85 22 92 11/29/24 01:16 85 21 96/52 (67) 91 11/29/24 01:15 84 23 92 11/29/24 01:01 84 21 94/58 (70) 90 11/29/24 01:00 83 20 92 11/29/24 00:57 79 100 11/29/24 00:57 93/60 11/29/24 00:46 83 20 100/61 (74) 90 11/29/24 00:45 83 20 90 11/29/24 00:31 81 22 93/60 (71) 91 11/29/24 00:30 81 24 92 11/29/24 00:16 79 21 100/49 (66) 79 11/29/24 00:15 78 20 76 11/29/24 00:01 98.1 82 20 95/53 (67) 93 11/29/24 00:00 87 Ventilator+ 0 100 11/29/24 00:00 98.4 Ventilator 100 11/28/24 23:46 82 20 97/55 (69) 93 11/28/24 23:42 78 20 11/28/24 23:31 80 20 92/53 (66) 93 LABS: Hematology Labs: Test 11/29/24 03:58 Range/Units White Blood Count 13.4 H 4.8-10.8 K/uL Red Blood Count 3.86 L 4.50-6.20 MIL/uL Hemoglobin 11.3 L 14.0-18.0 g/dL Hematocrit 36.9 L 42-54 % Mean Corpuscular Volume 95.6 79-99 fL Mean Corpuscular Hemoglobin 29.3 27.0-33.0 pg Mean Corpuscular Hemoglobin Concent 30.6 L 32.0-36.0 g/dL Red Cell Distribution Width 14.8 11.0-15.5 % Platelet Count 285 # 130-400 K/uL Mean Platelet Volume 10.7 H 7.5-10.5 fL Immature Granulocyte % (Auto) 1.0 0-1 % Neutrophils (%) (Auto) 85.7 H 40.0-77.0 % Lymphocytes (%) (Auto) 4.6 L 21.0-51.0 % Monocytes (%) (Auto) 8.6 3.0-13.0 % Eosinophils (%) (Auto) 0.0 0.0-8.0 % Basophils (%) (Auto) 0.1 0.0-5.0 % Neutrophils # (Auto) 11.4 H 1.8-7.7 K/uL Lymphocytes # (Auto) 0.6 L 1.0-4.8 K/uL Monocytes # (Auto) 1.2 H 0.1-1.0 K/uL Eosinophils # (Auto) 0.00 0.00-0.70 K/uL Basophils # (Auto) 0.01 0.00-0.20 K/uL Absolute Immature Granulocyte (auto 0.13 0-1 K/uL Nucleated Red Blood Cells 0.1 0.0-0.19 % White Cell Morphology Comment See comments Red Blood Cell Morphology See comments Chemistry Labs: Test 11/29/24 05:50 11/29/24 03:58 11/28/24 12:38 11/28/24 03:41 Range/Units Whole Blood Glucose 171 H 70-110 MG/DL Sodium Level 144 136-145 mmol/L Potassium Level 4.6 3.5-5.1 mmol/L Chloride Level 105 101-111 mmol/L Carbon Dioxide Level 23 21-32 mmol/L Blood Urea Nitrogen 123 *H 7-18 mg/dL Creatinine 4.9 H 0.5-1.3 mg/dL Glomerular Filtration Rate Calc 11 >90 mL/min Random Glucose 178 H 70-105 mg/dL Total Calcium 7.8 L 8.5-10.1 mg/dL Phosphorus Level 7.9 H 2.5-4.9 mg/dL Magnesium Level 2.60 H 1.80-2.40 mg/dL Total Bilirubin 0.4 # 0.2-1.0 mg/dL Aspartate Amino Transf (AST/SGOT) 60 H 10-37 U/L Alanine Aminotransferase (ALT/SGPT) 31 # 12-78 U/L Alkaline Phosphatase 69 50-136 U/L Total Protein 5.9 L 6.0-8.3 g/dL Albumin 1.7 L 3.5-5.0 g/dL Lactic Acid Level 1.9 0.8-2.5 mmol/L Triglycerides Level 282 H 30-200 mg/dL Uric Acid 17.1 H 2.6-7.2 mg/dL Coagulation Labs: Test 11/28/24 12:38 11/28/24 03:41 Range/Units Prothrombin Time 10.2 9.6-11.6 SEC Prothromb Time International Ratio 0.96 0.85-1.15 D-Dimer Quantitative (PE/DVT) 2694 *H 0-500 ng/mL DIAGNOSTICS / RADIOLOGY RESULTS: [ ] PLAN Wean FiO2 Change propofol to Precedex Start full feeding as 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 NEURO: Minimize central acting medications as possible. Fall Precautions. Well lighted room through the day and minimize interruptions through the night to prevent acute delirium. PULMONARY: Supplemental 02 as needed Titrate Fio2 to keep Spo2 > or = 90% DuoNebs and CPT as needed IS hourly while awake for pulmonary hygiene Out of bed to chair as tolerated VAP Bundle Vent/BIPAP Settings: AC/VC, tidal volume 425 respiratory rate of 22, FiO2 of 100% and PEEP of 10. Driving pressure: Less than 30 P/F Ratio: 66.9 CARDIOVASCULAR: Follow hemodynamics. Titrate vasopressor to keep MAP >65 or systolic blood pressure >95mmHg Drips: Fentanyl Propofol switch to precedex Levophed wean as possible LINES: PIV Pending PICC line GI & NUTRITION: Continue nutritional support Aspirations precautions Prokinetic agents and laxatives as needed KIDNEYS & ELECTROLYTES: Strict monitoring of intake and output Daily weights Avoid nephrotoxic agents Monitor electrolytes and replace as needed Goal urine output of 30mL/hr or 0.5mL/kg/hr ENDOCRINE: Maintain blood glucose between 100-180 at all times. Insulin sliding scale for blood glucose management INFECTIOUS DISEASE: Trend temperature. Magallanes-culture if febrile. Micro: [ ] Influenza type A Sputum culture positive for Staphylococcus aureus and Samanta albicans. Antibiotics: Levaquin Flagyl Tamiflu HEMATOLOGY & COAGULATION: Monitor H&H. Keep Hgb > 7 Transfuse 1 unit of PRBC for Hgb < 7 Transfuse 1 pack of platelets of platelets < 20, 000 Watch for any signs and symptoms of bleeding SKIN: Pressure ulcer prevention per facility protocol Rehab: PT/OT Prophylaxis: GI: Protonix DVT: Heparin Code Status: Full Resuscitation Disposition: ICU Other: Critical care time I personally spent 45 minutes of critical care time in treatment of this patient. This includes patient management, time at bedside, time reviewing tests, labs, appropriate images and studies, documentation, and patient care coordination. This time excludes separately billable procedures. CRISS REYEZ [facility] Nov 29, 2024 07:44
[2024-11-29] MEDS ORDERED: PHARMACY COMMUNICATION 1 EACH EACH MISC SCH (08:00)
--- NOTE | 2024-11-29 08:32 | PN ---
PROBLEM LIST: * Syncope versus presyncope high probability of postural hypotension as an etiology. * Pneumonia present on admission with concomitant sepsis. * Known history of coronary artery disease with remote coronary artery bypass graft surgery x 3 in [place]. * History of multiple stent placements in [place] of questionable date with questionable number of stents or location of stents. * EF of 50-55% with no significant valvular pathology by echocardiography on 11/21/2024. * History of heavy tobacco use, stopped in 2024. * Chronic kidney disease, stage 3, with superimposed acute kidney failure. * Sepsis. * Frail, debilitated octogenarian. * Acute respiratory failure, necessitating endotracheal intubation and mechanical ventilation on 11/28/2024. This gentleman had been fairly frail and debilitated; however, he was progressing reasonably well after management with multiple ____. Unfortunately, yesterday, the patient decompensated and became fairly short of breath and desaturated. This prompted endotracheal intubation. The patient has been transferred to the Intensive Care Unit. On assessing the patient this morning, he is intubated, mechanically ventilated, and sedated. His vital signs have revealed a heart rate of 100-105 per minute range. He appears to be sinus by telemetry; however, an electrocardiogram will be checked. The patient's respiratory rate is 20-22. His blood pressures have been marginal in the 80-90 range. He is currently saturating at 100% on the current ventilator settings. He is otherwise stable. The patient's exam reflects scattered rhonchi and crackles in both lung montalvo. Heart sounds are distant and has a prolonged expiratory phase. The patient has no evidence of pedal edema. Laboratory studies this morning reveal a white count of 13.4, up from 6.3 yesterday. H and H have been mildly decreased at 11.3 and 36.9 respectively, platelet count is normal at 285,000. The patient's chemistries have revealed a sodium of 144, potassium is 4.6. Sodium is 105, CO2 is 23, his BUN has gone up to 123, the creatinine has gone up to 4.9. The patient's calcium is low at 7.8; however, his albumin is very low at 1.7 consistent with severe protein malnutrition. The phosphorus is high at 7.9 and the magnesium is high at 2.6. Liver enzymes have revealed a mild elevation in the AST; however, slightly improved in comparison to yesterday. In reviewing the patient's renal function, it is evident that he had a creatinine of 1.3 on the 9th and has steadily increased consistent with acute renal injury. The patient is currently maintained on metronidazole, levofloxacin, fentanyl IV protocol, Precedex, propofol, Levophed, lactated Ringer's, Tamiflu, vitamin B complex with thiamine, methylprednisolone, Pulmicort, and p.r.n. medications. This gentleman's prognosis is extremely poor. He has developed multiorgan system failure including acute renal failure with markedly deteriorating parameters. He also has respiratory failure. I have not seen any family members in the number of days that I have been on seeing this gentleman. I will try and have the nursing staff to communicate with the family the grave prognosis. We will continue supportive measures. An electrocardiogram will be checked. TID: [id number] RECEIPT: [id number]
[2024-11-29] MEDS: MULTIVITAMIN TABLET PO SCH (08:41)
[2024-11-29] MEDS: FOLic ACID 1 MG TABLET PO SCH (08:41)
[2024-11-29] MEDS: dexmedeTOMIDine 400MCG/NS100ML IV SCH (08:45)
--- NOTE | 2024-11-29 08:53 | HMCIMG ---
Exam Type: CHEST 1VW Clinical Information: intubated Comparison: None Findings: Endotracheal tube is noted with tip 5.9 cm from debra. Nasogastric tube in place. Ill-defined infiltrates of both lungs are seen consistent with bilateral pneumonia. . The heart is normal in size. The bony and soft tissue structures show no worrisome pathology. IMPRESSION: Findings consistent with pneumonia. Follow-up is advised.
--- NOTE | 2024-11-29 09:30 | NUR ---
FAMILY UPDATE PT'S ANTHONY OROZCO CALLED AND UPDATED ON PT STATUS, INFORMED PT HAS BEEN DECLINING HYPOTENSIVE AND HAS HAD NOT HAD ANY URINE OUTPUT. PER SPOUSE, PT IS TO REMAIN A FULL CODE.
[2024-11-29 10:24] LABS: ABG BASE EXCESS -11.1 mmol/L (-2.0-3.0); ABG HCO3 18.9 mmol/L (21.0-28.0); ABG OXYGEN SATURATION 47.8 % (94.0-98.0); ABG PCO2 61 mmHg (35-48); ABG PH 7.109 (7.350-7.450); CARBON MONOXIDE 0.2 % (0.5-1.5); DEVICE COMMENT LR ARACELY; HHb 51.9; PO2, ARTERIAL BG < 45.0 mmHg (83.0-108.0); VENT MODE, BG AC-V (ROOM AIR)
--- NOTE | 2024-11-29 10:35 | HMCIMG ---
Exam Type: US RENAL SONOGRAM Clinical Information: ELAVATED BUN/CREA Comparison: None Findings: Examination shows normal renal size and echogenicity bilaterally. Preserved cortical thickness and corticomedullary junction region is seen. No hydronephrosis or calculi are seen. No renal masses are seen. There is no evidence of perinephric fluid on either side. No evidence of significant ureteral dilatation is seen. The right kidney measures 7.5 x 7.8 cm. The left kidney measures 8.6 x 4.4 cm. The urinary bladder is normal. No bladder masses, stones, or wall thickening is seen. IMPRESSION: Normal renal anatomy bilaterally.
--- NOTE | 2024-11-29 11:22 | NUR ---
Notes Met with pt. Pt remains intubated. TF stopped due to possible coding, and Propofol was stopped per nursing. CO2 WNL per charting. Continue with Trickle feed Nepro 1.8 @ 20 ml/hr. + 150 H2O flushes Q4hrs. WHEN MEDICALLY FEASIBLE. Trickle feed provides 45% calorie needs Advance to Goal Rate once pt is off pressors, and CO2 WNL. TF Goal Rate: Start full strength Nepro 1.8 @ 20 ml/hr. for the first 24 hours increase rate as tolerated by 5 ml every 4 hours to a GOAL RATE of 45ml/hr. 1080 ml/day + 165 ml H2O flushes Q4hrs. Provided 1944 ml, 87 gm protein, 1775 ml of fluid. WHEN MEDICALLY FEASIBLE. If residuals more than 500 ml stop tube feed for 2 hrs. If repeated stop tube feed and contact MD. Recommendation Provide Trickle feed Nepro 1.8 @20 ml/hr +150 H2O Flush Q4hrs. Provides 864 kcals, 39 gm of protein, 1249 Fluids, when medically feasible. Continue MVI QD as needed Continue Vit B1 as needed Continue Vit B Complex as needed Monitor BM Monitor weight, Reweigh as possible Monitor electrolytes, Replenish electrolytes as protocol Monitor TF tolerance + need for TF adjustment Monitor Residuals. If residuals more than 500 ml stop tube feed for 2 hrs. If repeated stop tube feed and contact MD. Monitor weight, Reweigh as possible Monitor electrolytes, replenish electrolytes as protocol Monitor goals of care RD to follow + available for consult per protocol Dietetic Student, Kia Qureshi Addendum: 11/29/24 at [address] Amended: Links added.
--- NOTE | 2024-11-29 12:13 | NUR ---
BILL REYEZ MINIATURE SET CONSTRUCTOR AT BEDSIDE INSERTING FEMORAL ARTERIAL LINE. PT BRADYCARDIA, PEA. BILL KANG CALLED, SEE BILL KANG RECORD.
[2024-11-29] MEDS: NOREPINEPHRINE 16MG/NS 250ML PREMIX IV SCH (12:22)
--- NOTE | 2024-11-29 12:22 | NUR ---
BILL Freed spoke to Juani and informed of Bill Ruth. thanked me for informing her, stated that she was having her taxes done, and waiting for her children to arrive on a [employer] flight at 1:20. "My being there will not do my or myself any good". "If he dies before we get there, can you have tubes removed so it won't be scarey for the family to see." Nurse Teresa spoke to and verified wishes should pt code a second time.
[2024-11-29 12:36] LABS: ABG BASE EXCESS -6.9 mmol/L (-2.0-3.0); ABG HCO3 19.5 mmol/L (21.0-28.0); ABG OXYGEN SATURATION 98.8 % (94.0-98.0); ABG PCO2 42 mmHg (35-48); ABG PH 7.282 (7.350-7.450); CARBON MONOXIDE 0.3 % (0.5-1.5); HHb 1.2; PO2, ARTERIAL BG 198.8 mmHg (83.0-108.0); VENT MODE, BG AC-VC (ROOM AIR)
--- NOTE | 2024-11-29 12:37 | NUR ---
CODE PEARL CALLED PEA, SECOND CODE PEARL CALLED. Oralia REYEZ NP AND DR ABDUL AT BEDSIDE. SEE BILL KANG RECORD.
[2024-11-29] MEDS ORDERED: SODIUM BICARB 50MEQ 50ML VIAL 100 ML ONE (12:42)
--- NOTE | 2024-11-29 12:50 | NUR ---
CODE STATUS PT'S SPOUSE ANTHONY OROZCO CALLED AND UPDATED THAT PT HAS HAS SECOND CARDIAC ARREST, ROSC ACHIEVED. PER PT'S SPOUSE SHE DOES NOT WANT US TO DO CPR ANYMORE. TELEPHONE CONSENT OBTAINED TO MAKE PT DNR. Oralia REYEZ NP NOTIFIED.
[2024-11-29 13:06] LABS: BASOPHILS # (AUTO) 0.02 K/uL (0.00-0.20); BASOPHILS % (AUTO) 0.1 % (0.0-5.0); HEMATOCRIT 34.5 % (42-54); IMMATURE GRANULOCYTE ABSOLUTE 0.44 K/uL (0-1); LYMPHOCYTES # (AUTO) 1.2 K/uL (1.0-4.8); LYMPHOCYTES % (AUTO) 8.4 % (21.0-51.0); MEAN CORPUSCULAR HEMOGLOBIN 29.3 pg (27.0-33.0); MEAN CORPUSCULAR HGB CONC 30.4 g/dL (32.0-36.0); MEAN CORPUSCULAR VOLUME 96.4 fL (79-99); MONOCYTES # (AUTO) 0.6 K/uL (0.1-1.0); MONOCYTES % (AUTO) 4.4 % (3.0-13.0); NEUTROPHILS # (AUTO) 11.7 K/uL (1.8-7.7); NUCLEATED RED BLOOD CELLS 0.3 % (0.0-0.19); PLATELET COUNT (AUTO) 180 K/uL (130-400); RED BLOOD CELL COUNT(AUTO) 3.58 MIL/uL (4.50-6.20); RED CELL DISTRIBUTION WIDTH 14.7 % (11.0-15.5)
--- NOTE | 2024-11-29 13:20 | HMCIMG ---
Exam Type: CHEST 1VW Clinical Information: intubated. Comparison: None Findings: Pulmonary pattern is as before. No worrisome interval changes have taken place. Impression: Stable exam.
[2024-11-29 13:24] LABS: ALBUMIN 1.6 g/dL (3.5-5.0); BILIRUBIN,TOTAL 0.3 mg/dL (0.2-1.0); CREATININE 6.7 mg/dL (0.5-1.3); MAGNESIUM 3.4 mg/dL (1.80-2.40); POTASSIUM 4.2 mmol/L (3.5-5.1); TOTAL PROTEIN, SERUM 5.4 g/dL (6.0-8.3)
--- NOTE | 2024-11-29 14:15 | NUR ---
PT'S FAMILY AT BEDSIDE PT'S FAMILY AT BEDSIDE, ALLOWED T O VISIT. HOME LIST PROVIDED, PENDING TO MAKE ARRANGEMENTS. WELLNESS COORDINATOR NUMBER PROVIDED, FAMILY WILL CALL WITH HOME.
--- NOTE | 2024-11-29 16:59 | DS ---
NOTE Date/Time of : 11/29/2024 at 1:23 p.m. Code Status: DNR Events prior to patient's : This frail and debilitated octogenarian was admitted on 11/24/2024 with complaint of shortness of breaths and had progressed with acute respiratory failure and eventually requiring emergent endotracheal intubation and mechanical ventilation on 11/28/2024 due to respiratory distress and desaturation. He had a complex medical history, including chronic kidney disease, coronary artery disease with prior CABG and type a influenza pneumonia with concomitant sepsis. Despite intensive supportive measures, including mechanical ventilation and broad-spectrum antibiotics, the patient demonstrated progressive clinical deterioration. Laboratory evaluation revealed worsening renal function and multiorgan dysfunction with elevated troponin. Throat the patient's ICU course he remained hemodynamically unstable despite v asopressor support and sedation with fentanyl, Precedex and propofol. Is respiratory status did not improve, and repeat assessments indicated ongoing severe hypoxia and bilateral pulmonary involvement. Cardiac arrest and -the patient experienced a PEA and is coded twice and return of spontaneous circulation has been achieved. Patient's family was informed about this and consented the patient for DNR if he codes again. The patient had a flat line on EKG at 1:23 P.m. and is pronounced at 2:00 p.m. Cause: Heart failure secondary to PA secondary to multi-system organ dysfunction secondary to acute hypoxic respiratory failure Manner/Autopsy: [ ] Provider Pronouncing : Dr. Emery Attending Physician: JOSIE Tai MD Nov 29, 2024 16:59
--- NOTE | 2024-11-29 20:02 | PN ---
[facility] PROGRESS NOTE Date Patient Seen: Nov 29, 2024 Time of Visit: 12:13 Supervising Physician:Jordan Hall MD Primary Care Physician: Self referral Outpatient Specialists: [ Inpatient Consults: DR Farrar, Dr Figueredo, Dr James Atkins PROBLEM LIST: S/P inpatient Cardiac arrest 11/29/24 Acute Hypoxemic resp failure requiring intubation 11/28/24 Suspected COPD exacerbation Acute on chronic CHF POA Community-acquired viral pneumonia with superimposed bacterial Staphylococcus aureus + Samanta albicans + Influenza Typa A, POA History of coronary artery disease CABG x3 CKD stage 3 POA Sepsis POA Fall POA Bilateral Nasal bone fractures POA Soft tissue emphysema POA Depression POA Frailty POA Hyponatremia POA Acute hypoxic respiratory failure 60 pack year smoker INTERVAL HISTORY: Per RN patient had a desaturation episode during the night and PEEP pressure increased to 12. This morning continues on mechanical ventilation with a assist-control volume control tidal volume 4respiratory rate of 20 FiO2 of 100% and PEEP of 12. Pressure of 25. Current vitals for heart rate of 102 saturating 100% on the bedside monitor respiratory rate of 20 on the vent, blood pressure 114/66 with Levophed at 0.14 mcg/kg per minute, continues with LR at 75 mL/hour. Stopped in IV fluids now. Continue with tube feedings and water flushes. Patient has remained afebrile in the last24 hours. Urine output of 665 mL in the last 24 hours. On laboratory WBCs 13.4 may be reactive from Solu- Medrol, H&H is 11.3/36.9 neutrophils 75.7 similar to yesterday. Chemistries sodium has [id number] today, BUN slightly improved 120 20 creatinine increased to 4.9 GFR of 11 [id number] mg/dL total calcium 7.8 Magnesium of 2.6 albumin of 1.7. We will change propofol to Precedex in order to start full-dose feeding and we will start weaning FiO2. Chest x-ray today with slight improvement. No pneumothorax. ET tube is one 3 cm from the debra, patient has a long neck we will inform RT to adjust ET tube 2 cm in. We will ask pharmacy to adjust medications per renal function. at approximately 1213 I was preparing and starting to insert a femoral Rt Arterial line because I had been called By RT and Nurse that RT had difficulty ontaining blood gases and blood pressure was starting to drop despite pressors. I was unable to perform arterial line succesfully due to before aciving a good Arterial line pt had an episode of bradycardia and converted to asystole. Code blue was called and pt underwent 1 round of CPR. Rosc acheived but at approximately 1237 a second code blue was called. See code blue sheet. ROSC was achieved and pt was made DNR per his request. Pt continues on pressors to maintain MAP, Dr Rodriguez ED physician successfully inserted arterial line to right femoral. Sodium bicarb pushes were given in order to correct acidosis. We continued supportive measures and optimization of medical and ventilator management. and family on their way as per social work assistant. No family at this time at the bedside. REVIEW OF SYSTEMS: Unable to perform due to patient intubated. PHYSICAL EXAM: GENERAL: Intubated, critically ill. HEENT: Sclera non icteric, moist mucosa NECK: Supple, no JVD, trachea midline LUNGS: Diminished breath sounds bilaterally. No wheezes HEART: Regular rate and rhythm. Normal S1 and S2, without murmurs ABD: Abdomen soft, nontender. Bowel sounds present EXT: No clubbing cyanosis or edema NEURO: Alert and oriented to person, follows commands Vital Signs (last 8hr) Date Time Temp Pulse Resp B/P (MAP) Pulse Ox O2 Delivery O2 Flow Rate FiO2 11/29/24 13:15 26 72/71 (71) 11/29/24 13:00 46 25 46/45 (45) 11/29/24 12:45 129 15 62/54 (57) 100 11/29/24 12:30 150 18 85/70 (75) 91 11/29/24 12:22 107/71 11/29/24 12:15 123 18 99 11/29/24 12:10 128 19 141/94 (110) 100 11/29/24 12:06 134 20 181/92 (121) 100 11/29/24 12:00 98.6 11/29/24 12:00 121 72 LABS: Hematology Labs: Test 11/29/24 12:56 11/29/24 03:58 Range/Units White Blood Count 14.0 H 4.8-10.8 K/uL Red Blood Count 3.58 L 4.50-6.20 MIL/uL Hemoglobin 10.5 L 14.0-18.0 g/dL Hematocrit 34.5 L 42-54 % Mean Corpuscular Volume 96.4 79-99 fL Mean Corpuscular Hemoglobin 29.3 27.0-33.0 pg Mean Corpuscular Hemoglobin Concent 30.4 L 32.0-36.0 g/dL Red Cell Distribution Width 14.7 11.0-15.5 % Platelet Count 180 # 130-400 K/uL Mean Platelet Volume 10.8 H 7.5-10.5 fL Immature Granulocyte % (Auto) 3.1 H 0-1 % Neutrophils (%) (Auto) 84.0 H 40.0-77.0 % Lymphocytes (%) (Auto) 8.4 L 21.0-51.0 % Monocytes (%) (Auto) 4.4 3.0-13.0 % Eosinophils (%) (Auto) 0.0 0.0-8.0 % Basophils (%) (Auto) 0.1 0.0-5.0 % Neutrophils # (Auto) 11.7 H 1.8-7.7 K/uL Lymphocytes # (Auto) 1.2 1.0-4.8 K/uL Monocytes # (Auto) 0.6 0.1-1.0 K/uL Eosinophils # (Auto) 0.00 0.00-0.70 K/uL Basophils # (Auto) 0.02 0.00-0.20 K/uL Absolute Immature Granulocyte (auto 0.44 0-1 K/uL Nucleated Red Blood Cells 0.3 H 0.0-0.19 % White Cell Morphology Comment See comments Red Blood Cell Morphology See comments Chemistry Labs: Test 11/29/24 12:56 11/29/24 05:50 11/29/24 03:58 11/28/24 12:38 Range/Units Sodium Level 157 H 136-145 mmol/L Potassium Level 4.2 3.5-5.1 mmol/L Chloride Level 111 101-111 mmol/L Carbon Dioxide Level 24 21-32 mmol/L Blood Urea Nitrogen 154 #*H 7-18 mg/dL Creatinine 6.7 H 0.5-1.3 mg/dL Glomerular Filtration Rate Calc 8 >90 mL/min Random Glucose 339 #H 70-105 mg/dL Lactic Acid Level 10.6 H 0.8-2.5 mmol/L Total Calcium 9.6 8.5-10.1 mg/dL Magnesium Level 3.40 H 1.80-2.40 mg/dL Total Bilirubin 0.3 # 0.2-1.0 mg/dL Aspartate Amino Transf (AST/SGOT) 70 H 10-37 U/L Alanine Aminotransferase (ALT/SGPT) 39 # 12-78 U/L Alkaline Phosphatase 71 50-136 U/L Total Creatine Kinase 207 21-232 U/L Troponin I High Sensitivity 4398.0 *H 4-75 ng/L Total Protein 5.4 L 6.0-8.3 g/dL Albumin 1.6 L 3.5-5.0 g/dL Procalcitonin 2.30 H 0.05-0.5 ng/mL Whole Blood Glucose 171 H 70-110 MG/DL Phosphorus Level 7.9 H 2.5-4.9 mg/dL Triglycerides Level 282 H 30-200 mg/dL Test 11/28/24 03:41 Range/Units Uric Acid 17.1 H 2.6-7.2 mg/dL Coagulation Labs: Test 11/28/24 12:38 11/28/24 03:41 Range/Units Prothrombin Time 10.2 9.6-11.6 SEC Prothromb Time International Ratio 0.96 0.85-1.15 D-Dimer Quantitative (PE/DVT) 2694 *H 0-500 ng/mL DIAGNOSTICS / RADIOLOGY RESULTS: IMAGING REPORT Signed PATIENT: CHRISTOS OROZCO MR#: [id number] : 1940 SEX: M AGE: 84 LOCATION: [facility] ORDER 1255 STATUS: ADM IN REPORT#: [id number] SERVICE [id number] REASON: intubated. ORDERING PHYSICIAN: CRISS REYEZ PROCEDURE: CXR1VW - CHEST 1VW Exam Type: CHEST 1VW Clinical Information: intubated. Comparison: None Findings: Pulmonary pattern is as before. No worrisome interval changes have taken place. Impression: Stable exam. DICTATED BY: KAREN HEATH MD DATE: 11/29/24 1317 ELECTRONICALLY SIGNED BY: KAREN HEATH MD DATE: 11/29/24 132 PLAN Wean FiO2 Change propofol to Precedex Start full feeding as recommended per hopper feeder Bowel regimen BiPAP bundle Continue antibiotics with Levaquin, Flagyl and Tamiflu Monitor for fevers Continue neb treatments adjust medications per renal function. NEURO: Minimize central acting medications as possible. Fall Precautions. Well lighted room through the day and minimize interruptions through the night to prevent acute delirium. PULMONARY: Supplemental 02 as needed Titrate Fio2 to keep Spo2 > or = 90% DuoNebs and CPT as needed IS hourly while awake for pulmonary hygiene Out of bed to chair as tolerated VAP Bundle Vent/BIPAP Settings: AC/VC, tidal volume 425 respiratory rate of 22, FiO2 of 100% and PEEP of 10. Driving pressure: Less than 30 P/F Ratio: 66.9 CARDIOVASCULAR: Follow hemodynamics. Titrate vasopressor to keep MAP >65 or systolic blood pressure >95mmHg Drips: Fentanyl Propofol switch to precedex Levophed wean as possible LINES: PIV Pending PICC line GI & NUTRITION: Continue nutritional support Aspirations precautions Prokinetic agents and laxatives as needed KIDNEYS & ELECTROLYTES: Strict monitoring of intake and output Daily weights Avoid nephrotoxic agents Monitor electrolytes and replace as needed Goal urine output of 30mL/hr or 0.5mL/kg/hr ENDOCRINE: Maintain blood glucose between 100-180 at all times. Insulin sliding scale for blood glucose management INFECTIOUS DISEASE: Trend temperature. Magallanes-culture if febrile. Micro: [ ] Influenza type A Sputum culture positive for Staphylococcus aureus and Samanta albicans. Antibiotics: Levaquin Flagyl Tamiflu HEMATOLOGY & COAGULATION: Monitor H&H. Keep Hgb > 7 Transfuse 1 unit of PRBC for Hgb < 7 Transfuse 1 pack of platelets of platelets < 20, 000 Watch for any signs and symptoms of bleeding SKIN: Pressure ulcer prevention per facility protocol Rehab: PT/OT Prophylaxis: GI: Protonix DVT: Heparin Code Status: Full Resuscitation Disposition: ICU Other: Critical care time I personally spent 45 minutes of critical care time in treatment of this patient. This includes patient management, time at bedside, time reviewing tests, labs, appropriate images and studies, documentation, and patient care coordination. This time excludes separately billable procedures. CRISS REYEZ Nov 29, 2024 20:02
[2024-11-29 22:09] LABS: MYCOPLASMA AB IGM <770 U/mL (0-769)
--- NOTE | 2024-11-30 13:48 | PN ---
SUBJECTIVE: The patient has multiple medical problems, renal failure, anemia, respiratory failure. He has coronary artery disease, CABG, hypertension, dyslipidemia, previous fall. The patient is influenza positive. He has been in ICU. He has worsening renal failure. Review of systems not possible. He has developed now very rising BUN and creatinine. No other associated finding. No other aggravating or relieving factors. The patient later on had a cardiac arrest also. The patient was seen several times today. The patient has been treated for pneumonia, COPD exacerbation and other comorbidities. The patient had later on code blue also called. The patient later on made DNR as per family's wishes and has become acidotic. PHYSICAL EXAMINATION: GENERAL: Critically ill. VITAL SIGNS: Blood pressure has been low initially and up to 85/70, pulse is 110, respiratory rate is 18, afebrile. HEENT: Head is atraumatic. Pupils are round and reactive. Sclerae are anicteric. Conjunctivae not pale. Oral mucosa is not dry. NECK: Without masses or bruits. Thyroid is palpable. CHEST: Shows equal thoracic percussion note being resonant in all areas. CARDIAC: Regular rhythm, no rub, no S3, S4. No parasternal heave. Apical beat is not localized. ABDOMEN: With no guarding or tenderness. NEUROLOGIC: This patient is intubated, mechanically ventilated and not responsive. All the other systemic review is unchanged. LABORATORY DATA: Have shown worsening BUN to 154, worsening creatinine to 6.7. Hemoglobin low up to 10.5, white cell count is 14,000. Sodium has been high. Old records reviewed. DIAGNOSTIC DATA: Imaging studies are personally reviewed and the patient had microbiology data reviewed. Sputum labs are Staph aureus and old records were reviewed. PROBLEMS: This patient has acute renal failure, has respiratory failure, chronic obstructive pulmonary disease exacerbation, pneumonia and influenza. The patient has coronary artery disease, coronary artery bypass graft, cardiomyopathy, sepsis, nasal fracture, hypernatremia, respiratory failure, previous smoking and multiple other comorbidities. The patient is critically ill. PLAN: This patient is doing very poorly. Was seen in the morning, later on had a cardiac arrest also. The patient is a poor candidate for dialysis. His family had made DNR. The patient received pressors. Prognosis is poor, not likely to survive. Critically ill patient. We have discussed with other team members. The patient was seen in the ICU and have reviewed the old record, external records. Labs and x-rays were personally reviewed. Follow up labs have been done and reviewed and we will continue followup. The patient was seen in ICU. We will continue monitoring of renal function. TID: [id number] RECEIPT: [id number] MTDD
== END 2024-11-29 14:00 | DRG 871 ==
LOC: EDH 03:23 → EDHIP 05:27 → 3DH 16:25 → 2AH 11-27 21:01 → 2BH 11-28 10:01
PROVIDERS: ADMIT Internal Medicine; ATTEND Internal Medicine
PROC: 02HV33Z Insertion of Infusion Device into Superior Vena Cava, Percutaneous Approach (ICD-10-PCS; 2024-11-24)
PROC: 0BH17EZ Insertion of Endotracheal Airway into Trachea, Via Natural or Artificial Opening (ICD-10-PCS; principal; 2024-11-28)
PROC: 5A0935A Assistance with Respiratory Ventilation, Less than 24 Consecutive Hours, High Flow/Velocity Cannula (ICD-10-PCS; 2024-11-28)
PROC: 5A1935Z Respiratory Ventilation, Less than 24 Consecutive Hours (ICD-10-PCS; 2024-11-28)
PROC: 5A12012 Performance of Cardiac Output, Single, Manual (ICD-10-PCS; 2024-11-29)
DX: A41.89 Other specified sepsis (principal); E43 Unspecified severe protein-calorie malnutrition; I50.33 Acute on chronic diastolic (congestive) heart failure; J10.01 Influenza due to other identified influenza virus with the same other identified influenza virus pneumonia; J96.01 Acute respiratory failure with hypoxia; J10.08 Influenza due to other identified influenza virus with other specified pneumonia; J12.9 Viral pneumonia, unspecified; J18.9 Pneumonia, unspecified organism; N17.9 Acute kidney failure, unspecified; E87.0 Hyperosmolality and hypernatremia; E87.1 Hypo-osmolality and hyponatremia; E87.20 Acidosis, unspecified; I13.0 Hypertensive heart and chronic kidney disease with heart failure and stage 1 through stage 4 chronic kidney disease, or unspecified chronic kidney disease; J44.1 Chronic obstructive pulmonary disease with (acute) exacerbation; J44.0 Chronic obstructive pulmonary disease with (acute) lower respiratory infection; I42.9 Cardiomyopathy, unspecified; T79.7XXA Traumatic subcutaneous emphysema, initial encounter; R62.7 Adult failure to thrive; N18.30 Chronic kidney disease, stage 3 unspecified; R55 Syncope and collapse; Z66 Do not resuscitate; D64.9 Anemia, unspecified; Z68.27 Body mass index [BMI] 27.0-27.9, adult; E78.5 Hyperlipidemia, unspecified; F17.200 Nicotine dependence, unspecified, uncomplicated; F32.A Depression, unspecified; I46.9 Cardiac arrest, cause unspecified; R54 Age-related physical debility; W18.30XA Fall on same level, unspecified, initial encounter; I25.10 Atherosclerotic heart disease of native coronary artery without angina pectoris; R29.6 Repeated falls; S02.2XXA Fracture of nasal bones, initial encounter for closed fracture; Y93.89 Activity, other specified; Y92.89 Other specified places as the place of occurrence of the external cause; Y99.8 Other external cause status; Z95.5 Presence of coronary angioplasty implant and graft; Z51.5 Encounter for palliative care; Z95.1 Presence of aortocoronary bypass graft; Z88.0 Allergy status to penicillin; Z79.899 Other long term (current) drug therapy; Z79.82 Long term (current) use of aspirin
CPT/HCPCS: 31500; 36415; 36600; 70486; 71045; 73030; 76770; 80048; 80051; 80053; 81001; 82435; 82550; 82803; 82947; 82948; 83605; 83735; 83880; 84100; 84132; 84145; 84295; 84478; 84484; 84550; 85018; 85025; 85378; 85610; 86738; 87040; 87071; 87086; 87186; 87205; 87426; 87449; 87804; 92610; 92950; 93005; 93970; 93975; 94002; 94003; 94640; 94664; 96374; 96375; 99285; A4344; A6250; B4082; C1751; G0378; J0171; J0692; J1644; J1940; J1956; J2270; J2704; J2919; J3010; J3411; J3490; J7040; J7050; A4600; A9900; J3370